=== PATIENT | male | born 1940 | race Caucasian/White ===

== ENCOUNTER 2016-05-21 09:33 | Emergency (ER) | payer OTHER ==
--- NOTE | 2016-05-21 09:51 | PDOC ---
History of Present Illness - General Chief Complaint: Cold Symptoms Stated Complaint: FLU SYMPTOMS Time Seen by Provider: 05/21/16 09:47 History Source: Patient Exam Limitations: No Limitations - History of Present Illness Initial Comments: 76 yo M past medical history of colon CA, in remission, presents with flu-like symptoms for past week. He states that he suspected he had the flu, but sought evaluation now because it hasn't yet resolved. He states that he has been having cough, congestion, and sensation of aching pains all over his body. He has been taking ibuprofen 200 mg occasionally, but he generally prefers not to take medication. Denies shortness of breath. Past History - Past Medical History Allergies/Adverse Reactions: Allergies Allergy/AdvReac Type Severity Reaction Status Date / Time No Known Drug Allergies Allergy Verified 05/21/16 09:49 Home Medications: Ambulatory Orders Acetaminophen [Tylenol] 325 mg PO PRN PRN 05/21/16 Ibuprofen [Advil -] 200 mg PO PRN PRN 05/21/16 Anemia: No Asthma: No Cancer: Yes (COLON CA) Cardiac Disorders: No CVA: No COPD: No CHF: No Dementia: No Diabetes: No GI Disorders: No Disorders: Yes (KIDNEY STONES W/ LITHOTRIPSY) HTN: No Hypercholesterolemia: No Liver Disease: No Seizures: No Thyroid Disease: No - Surgical History Abdominal Surgery: Yes (COLON RESECTION) Appendectomy: Yes Cardiac Surgery: No Cholecystectomy: No Lung Surgery: No Neurologic Surgery: No Orthopedic Surgery: No - Psycho/Social/Smoking Cessation Hx Anxiety: No Suicidal Ideation: No Smoking Status: No Smoking History: Unknown if ever smoked Have you smoked in the past 12 months: No Number of Cigarettes Smoked Daily: 0 Hx Alcohol Use: No Drug/Substance Use Hx: No Substance Use Type: None Hx Substance Use Treatment: No Review of Systems - Review of Systems Able to Perform ROS?: Yes Comments:: GENERAL/CONSTITUTIONAL: No fever or chills. No weakness. HEAD, EYES, EARS, NOSE AND THROAT: No change in vision. No ear pain or discharge. No sore throat. +Nasal congestion. CARDIOVASCULAR: No chest pain or shortness of breath. RESPIRATORY: +Cough. No wheezing or hemoptysis. GASTROINTESTINAL: No nausea, vomiting, diarrhea or constipation. GENITOURINARY: No dysuria, frequency, or change in urination. MUSCULOSKELETAL: No joint or muscle swelling or pain. No neck or back pain. SKIN: No rash NEUROLOGIC: No headache, vertigo, loss of consciousness, or change in strength/ sensation. ENDOCRINE: No increased thirst. No abnormal weight change. HEMATOLOGIC/LYMPHATIC: No anemia, easy bleeding, or history of blood clots. ALLERGIC/IMMUNOLOGIC: No hives or skin allergy. *Physical Exam - Physical Exam Comments: GENERAL: Awake, alert, and fully oriented, in no acute distress HEAD: No signs of trauma EYES: PERRLA, EOMI, sclera anicteric, conjunctiva clear ENT: Auricles normal inspection, hearing grossly normal, nares with some crusting, oropharynx clear without exudates. Moist mucosa NECK: Normal ROM, supple, no lymphadenopathy, JVD, or masses LUNGS: Breath sounds equal, clear to auscultation bilaterally. No wheezes, and no crackles HEART: Regular rate and rhythm, normal S1 and S2, no murmurs, rubs or gallops ABDOMEN: Soft, nontender, normoactive bowel sounds. No guarding, no rebound. No masses EXTREMITIES: Normal range of motion, no edema. No clubbing or cyanosis. No cords, erythema, or tenderness NEUROLOGICAL: Cranial nerves II through XII grossly intact. Normal speech, normal gait SKIN: Warm, Dry, normal turgor, no rashes. +Cracked skin to L hand and L foot. Medical Decision Making - Medical Decision Making XR and flu swab results d/w patient. No indication for antibiotics at this time. Eucerin or vaseline nightly for cracked skin- I counseled patient that the cracks can get infected if he does not take care of them. *DC/Admit/Observation/Transfer Diagnosis at time of Disposition: Viral syndrome - Discharge Dispostion Disposition: HOME Condition at time of disposition: Stable Admit: No - Patient Instructions Printed Discharge Instructions: DI for Viral Upper Respiratory Infection -- Adult
[2016-05-21 09:58] VITALS: BP 131/82; PULSE 70; TEMP 98.7; BMI 33.2
== END 2016-05-21 11:50 | disposition home or self-care (01) ==
LOC: FER 09:33
DX: B34.9 Viral infection, unspecified (principal); Z85.038 Personal history of other malignant neoplasm of large intestine; Z87.442 Personal history of urinary calculi
CPT/HCPCS: 71020-TC; 87804; 99283-25

== ENCOUNTER 2016-07-13 11:09 | Emergency (ER) | payer OTHER ==
[2016-07-13 11:16] VITALS: TEMP 97.6; BMI 40.6
[2016-07-13 11:30] LABS: BASOPHIL 1.1 % (0-2.0); EOSINOPHIL 2.1 % (0-4.5); MCH 31.9 pg (25.7-33.7); MCHC 33.3 g/dl (32.0-35.9); MEAN CELL VOLUME 95.8 fl (80-96); MEAN PLT VOLUME 8.1 fl (7.5-11.1); NEUTROPHILS 66.2 % (42.8-82.8); PLATELET COUNT 208 K/MM3 (134-434); RDW 13.5 % (11.9-15.9); WHITE BLOOD COUNT 6.9 K/mm3 (4.0-10.8)
[2016-07-13] MEDS ORDERED: MECLIZINE HCL 25 MG TABLET (FP) PO ONE (11:46)
[2016-07-13] MEDS ORDERED: MECLIZINE HCL 25 MG TABLET (FP) ONE (11:48)
[2016-07-13 11:55] LABS: CPK(DFH) 55 IU/L (38-174)
[2016-07-13 11:56] LABS: ALBUMIN 3.5 g/dl (3.5-5.0); ALK PHOS 55 U/L (32-92); ANION GAP 6 (8-16); BILIRUBIN,TOTAL 0.9 mg/dl (0.2-1.0); CALCIUM 8.8 mg/dl (8.4-10.2); CO2 28 mmol/L (22-28); CREATININE 0.9 mg/dl (0.6-1.3); GLUCOSE,RANDOM 120 mg/dl (74-106); SGOT/AST 20 U/L (10-42); SGPT/ALT 14 U/L (10-40)
[2016-07-13 11:57] LABS: COCKROFT - GAULT NT
[2016-07-13 12:23] LABS: TROPONIN I (DFP) < 0.03 ng/ml (0.03-0.50)
--- NOTE | 2016-07-13 12:23 | PDOC ---
History of Present Illness - General Chief Complaint: Lightheaded Stated Complaint: DIZZINESS Time Seen by Provider: 07/13/16 11:10 History Source: Patient, Spouse Exam Limitations: No Limitations - History of Present Illness Initial Comments: 07/13/16 12:17 CHIEF COMPLAINT: Vertigo since this morning HISTORY OF PRESENT ILLNESS: This is a 76-year-old man with no significant past medical history other than prior resection of a colon cancer a few years ago. He states in the past he has had occasional episodes of vertigo which have been treated successfully with meclizine. His last episode was a few years ago. He was feeling well this morning until he got up from his bed and upon standing he felt similar symptoms to his prior vertigo. He said he felt his head spinning a little bit and slightly off balance. Shortly thereafter he vomited 2. Currently he continues to have mild vertigo, only upon standing, which is consistent with his prior episodes of vertigo. When he lies still on the bed, he feels much better. When he moves or gets up, he starts to feel the vertigo. There is no chest pain. There is no nausea or vomiting. There is no shortness of breath. There is no focal numbness or weakness. There is no change in speech or swallowing. There is no change in vision. REVIEW OF SYSTEMS: GENERAL/CONSTITUTIONAL: No fever or chills. No weakness. No weight change. HEAD, EYES, EARS, NOSE AND THROAT: No change in vision. No ear pain or discharge. No sore throat. CARDIOVASCULAR: No chest pain or shortness of breath. RESPIRATORY: No cough, wheezing, or hemoptysis. GASTROINTESTINAL: No nausea, vomiting, diarrhea or constipation. No rectal bleeding. GENITOURINARY: No dysuria, frequency, or change in urination. MUSCULOSKELETAL: No joint or muscle swelling or pain. No neck or back pain. SKIN AND BREASTS: No rash or easy bruising. NEUROLOGIC: Slight frontal headache, + positive vertigo, no loss of consciousness, no loss of sensation. PSYCHIATRIC: No depression or anxiety. ENDOCRINE: No increased thirst. No abnormal weight change. HEMATOLOGIC/LYMPHATIC: No anemia, easy bleeding, or history of blood clots. ALLERGIC/IMMUNOLOGIC: No hives or skin allergy. No latex allergy. Past History - Past Medical History Allergies/Adverse Reactions: Allergies Allergy/AdvReac Type Severity Reaction Status Date / Time No Known Drug Allergies Allergy Verified 07/13/16 11:10 Home Medications: Ambulatory Orders Meclizine HCl 25 mg PO Q6H PRN #20 tablet 07/13/16 Anemia: No Asthma: No Cancer: Yes (COLON CA, status post resection) Cardiac Disorders: No CVA: No COPD: No CHF: No Dementia: No Diabetes: No GI Disorders: No Disorders: Yes (KIDNEY STONES W/ LITHOTRIPSY) HTN: No Hypercholesterolemia: No Liver Disease: No Seizures: No Thyroid Disease: No Other medical history: VERTIGO - Surgical History Abdominal Surgery: Yes (COLON RESECTION) Appendectomy: Yes Cardiac Surgery: No Cholecystectomy: No Lung Surgery: No Neurologic Surgery: No Orthopedic Surgery: No - Immunization History Immunization Up to Date: Yes - Psycho/Social/Smoking Cessation Hx Anxiety: No Suicidal Ideation: No Smoking Status: No Smoking History: Never smoked Have you smoked in the past 12 months: No Number of Cigarettes Smoked Daily: 0 Hx Alcohol Use: No Drug/Substance Use Hx: No Substance Use Type: None Hx Substance Use Treatment: No *Physical Exam - Vital Signs Last Vital Signs Temp Pulse Resp BP Pulse Ox 97.6 F 62 18 134/77 96 07/13/16 11:10 07/13/16 11:50 07/13/16 11:50 07/13/16 11:50 07/13/16 11:50 - Physical Exam Comments: 07/13/16 12:21 GENERAL: The patient is awake, alert, and fully oriented, in no acute distress. HEAD: Normal with no signs of trauma. EYES: Pupils equal, round and reactive to light, extraocular movements intact, sclera anicteric, conjunctiva clear. ENT: Ears normal, nares patent, oropharynx clear without exudates. Moist mucous membranes. NECK: Normal range of motion, supple without lymphadenopathy, JVD, or masses. LUNGS: Breath sounds equal, clear to auscultation bilaterally. No wheezes, and no crackles. HEART: Regular rate and rhythm, normal S1 and S2 without murmur, rub or gallop. ABDOMEN: Soft, nontender, normoactive bowel sounds. No guarding, no rebound. No masses. EXTREMITIES: Normal range of motion, no edema. No clubbing or cyanosis. No cords, erythema, or tenderness. NEURO: Mental status: The patient is oriented x3. Cranial nerves: Cranial nerves are intact. There is no nystagmus. There is no facial asymmetry. Motor: The upper extremities are 5 over 5 in all muscle groups. The lower extremities are 5 over 5 in all muscle groups. Sensation: Sensation is intact to light touch throughout. Cerebellar: Epdtzu-[id number] is normal in both upper extremities. Heel-knee- neal is normal in both lower extremities. Reflexes: 2+ and symmetric in the upper and lower extremities. Gait: Normal. Heel and toe walking are normal. Tandem gait is normal for age. PSYCH: Normal mood, normal affect. SKIN: Warm, Dry, normal turgor, no rashes or lesions noted. ED Treatment Course - LABORATORY CBC & Chemistry Diagram: 07/13/16 11:15 07/13/16 11:15 - ADDITIONAL ORDERS Additional order review: Laboratory Results 07/13/16 07/13/16 11:15 11:15 Sodium 137 Potassium 4.8 Chloride 103 Carbon Dioxide 28 Anion Gap 6 L BUN 15 D Creatinine 0.9 Creat Clearance w eGFR > 60 Random Glucose 120 H D Calcium 8.8 Total Bilirubin 0.9 AST 20 ALT 14 Alkaline Phosphatase 55 Creatine Kinase 55 Total Protein 6.0 L Albumin 3.5 07/13/16 11:15 RBC 4.54 MCV 95.8 MCHC 33.3 RDW 13.5 MPV 8.1 Neutrophils % 66.2 D Lymphocytes % 22.7 D Monocytes % 7.9 Eosinophils % 2.1 Basophils % 1.1 - Medications Given in the ED: ED Medications Discontinued Medications Generic Name Dose Route Start Last Admin Trade Name Freq PRN Reason Stop Dose Admin Meclizine HCl 25 mg 07/13/16 11:46 07/13/16 11:50 Antivert - PO 07/13/16 11:47 25 mg ONCE ONE Administration Medical Decision Making - Medical Decision Making 07/13/16 12:22 Patient has a history of recurrent episodes of vertigo, which she states are exactly similar to his current episode. He currently is here with onset today of vertigo with vomiting. The symptoms are getting better. He has no other neurological complaints. His neurological examination is completely normal. He does have slight vertigo upon moving or standing here in the ED. His physical examination including a detailed neurological examination is normal. Twelve-lead EKG shows sinus bradycardia with left axis and poor R waves inferiorly. There is no change from prior EKG in 2016. Impression: No evidence for acute cardiac or central nervous system disease. Symptoms are more likely peripheral vertigo, which the patient has suffered many times in the past. Given one dose of meclizine, however, his symptoms are improving prior to the medication. 07/13/16 13:05 Laboratory Tests 07/13/16 07/13/16 07/13/16 11:15 11:15 11:15 WBC 6.9 RBC 4.54 Hgb 14.5 Hct 43.5 MCV 95.8 MCHC 33.3 RDW 13.5 Plt Count 208 MPV 8.1 Neutrophils % 66.2 D Lymphocytes % 22.7 D Monocytes % 7.9 Eosinophils % 2.1 Basophils % 1.1 Sodium 137 Potassium 4.8 Chloride 103 Carbon Dioxide 28 Anion Gap 6 L BUN 15 D Creatinine 0.9 Creat Clearance w eGFR > 60 Random Glucose 120 H D Calcium 8.8 Total Bilirubin 0.9 AST 20 ALT 14 Alkaline Phosphatase 55 Creatine Kinase 55 Troponin I < 0.03 L Total Protein 6.0 L Albumin 3.5 Laboratory studies reviewed. The CBC is completely normal. The chemistries are all normal. The mild glucose elevation is consistent with a nonfasting state. The cardiac enzymes are negative. The patient's symptoms are consistent with benign, peripheral, positional vertigo. There are no symptoms of stroke or cardiac disease. The patient is feeling much better. He is stable for discharge. *DC/Admit/Observation/Transfer Diagnosis at time of Disposition: Peripheral vertigo Qualifiers: Laterality: unspecified laterality Qualified Code(s): H81.399 - Other peripheral vertigo, unspecified ear - Discharge Dispostion Disposition: HOME Condition at time of disposition: Improved Admit: No - Prescriptions Prescriptions: Meclizine HCl 25 mg PO Q6H PRN #20 tablet PRN Reason: Vertigo - Referrals Referrals: Eric Morales MD [Primary Care Provider] - - Patient Instructions Printed Discharge Instructions: DI for Benign Paroxysmal Positional Vertigo Additional Instructions: You were evaluated today for positional vertigo. Your examination and your EKG and blood tests were all normal. Take it easy at home for the rest of the day. Take meclizine as needed for vertigo. The recommended doses one tablet every 6 hours if needed. Eat lightly. Follow-up with Dr. Morales if the symptoms have not resolved. Return to the emergency department for any severe or progressive symptoms.
[2016-07-13] MEDS ORDERED: ACETAMINOPHEN 325 MG TABLET (FP) PO ONE (13:12)
[2016-07-13] MEDS ORDERED: ACETAMINOPHEN 325 MG TABLET (FP) ONE (13:12)
[2016-07-13 13:32] VITALS: BP 132/58; PULSE 60
--- NOTE | 2016-07-13 16:08 | EKG ---
Test Reason : Blood Pressure : / mmHG Vent. Rate : 058 BPM Atrial Rate : 058 BPM P-R Int : 152 ms QRS Dur : 080 ms QT Int : 424 ms P-R-T Axes : 032 -47 -06 degrees QTc Int : 416 ms SINUS BRADYCARDIA LEFT AXIS DEVIATION CANNOT RULE OUT INFERIOR INFARCT , AGE UNDETERMINED NONSPECIFIC T WAVE ABNORMALITY ABNORMAL ECG NO PREVIOUS ECGS AVAILABLE Confirmed by GARTH MEDELLIN MD ([id number]) on 07/13/2016 4:07:31 PM Referred By: BAYLEE SANTOYO Confirmed By:GARTH MEDELLIN MD
== END 2016-07-13 13:15 | disposition home or self-care (01) ==
LOC: FER 11:09 → SUPCPDRO 11:09 → FER 13:15
DX: H81.399 Other peripheral vertigo, unspecified ear (principal); Z85.038 Personal history of other malignant neoplasm of large intestine; Z87.442 Personal history of urinary calculi
CPT/HCPCS: 36415; 80053; 82550; 84484; 85025; 93005; 99285-25

== ENCOUNTER 2017-02-14 03:24 | Emergency (ER) | payer OTHER ==
[2017-02-14 03:34] VITALS: BMI 33.2
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
[2017-02-14] MEDS ORDERED: ASPIRIN 81 MG CHEWABLE TABLETS PO ONE (03:42)
[2017-02-14] MEDS ORDERED: ASPIRIN 81 MG CHEWABLE TABLETS ONE (03:49)
[2017-02-14 04:42] LABS: BASOPHIL 0.9 % (0-2.0); EOSINOPHIL 2.7 % (0-4.5); MCH 31.7 pg (25.7-33.7); MCHC 32.8 g/dl (32.0-35.9); MEAN CELL VOLUME 96.8 fl (80-96); MEAN PLT VOLUME 7.8 fl (7.5-11.1); NEUTROPHILS 51.2 % (42.8-82.8); PLATELET COUNT 217 K/MM3 (134-434); RDW 13.8 % (11.9-15.9)
[2017-02-14 05:09] LABS: ALBUMIN 3.4 g/dl (3.4-5.0); ANION GAP 9 (8-16); BILIRUBIN,TOTAL 0.5 mg/dL (0.2-1.0); CALCIUM 8.4 mg/dL (8.5-10.1); CO2 26 mmol/L (21-32); CREATININE 0.9 mg/dL (0.7-1.3); GLUCOSE,RANDOM 94 mg/dL (74-106); SGOT/AST 14 U/L (15-37); SGPT/ALT 17 U/L (12-78); TOT PROT 6.1 g/dl (6.4-8.2)
[2017-02-14 05:12] LABS: ALK PHOS 76 U/L (45-117); CPK 107 IU/L (39-308); TROPONIN I 0.05 ng/ml (0.00-0.05)
--- NOTE | 2017-02-14 07:34 | PDOC ---
*Physical Exam - Vital Signs Last Vital Signs Temp Pulse Resp BP Pulse Ox 97.6 F 62 18 135/74 98 02/14/17 03:32 02/14/17 03:32 02/14/17 03:32 02/14/17 03:32 02/14/17 03:32 ED Treatment Course - LABORATORY CBC & Chemistry Diagram: 02/14/17 03:48 02/14/17 03:48 - ADDITIONAL ORDERS Additional order review: Laboratory Results 02/14/17 03:48 Sodium 141 Potassium 4.1 Chloride 106 Carbon Dioxide 26 Anion Gap 9 BUN 13 D Creatinine 0.9 Creat Clearance w eGFR > 60 Random Glucose 94 Calcium 8.4 L Total Bilirubin 0.5 AST 14 L ALT 17 Alkaline Phosphatase 76 Creatine Kinase 107 Troponin I 0.05 Total Protein 6.1 L Albumin 3.4 02/14/17 03:48 RBC 4.46 D MCV 96.8 H MCHC 32.8 RDW 13.8 MPV 7.8 Neutrophils % 51.2 Lymphocytes % 34.1 Monocytes % 11.1 H Eosinophils % 2.7 Basophils % 0.9 - Medications Given in the ED: ED Medications Discontinued Medications Generic Name Dose Route Start Last Admin Trade Name Freq PRN Reason Stop Dose Admin Aspirin 325 mg 02/14/17 03:42 02/14/17 03:50 Asa - PO 02/14/17 03:43 325 mg ONCE ONE Administration Medical Decision Making - Medical Decision Making 02/14/17 10:57 Pt endorsed to me by Dr. Laird at shift change. Low suspicion for ACS, low risk. Awaiting repeat CE. If wnl, will DC home. *DC/Admit/Observation/Transfer Diagnosis at time of Disposition: Atypical chest pain - Discharge Dispostion Disposition: HOME Condition at time of disposition: Stable Admit: No - Referrals Referrals: Eric Morales MD [Primary Care Provider] - - Patient Instructions Printed Discharge Instructions: DI for Atypical Chest Pain - Post Discharge Activity
[2017-02-14 09:01] VITALS: TEMP 98.6
[2017-02-14 10:32] LABS: CPK 74 IU/L (39-308)
[2017-02-14 11:23] LABS: TROPONIN I (DFP) < 0.03 ng/ml (0.03-0.50)
[2017-02-14 11:31] VITALS: BP 117/71; PULSE 59
--- NOTE | 2017-02-15 17:50 | EKG ---
Test Reason : Blood Pressure : / mmHG Vent. Rate : 058 BPM Atrial Rate : 058 BPM P-R Int : 148 ms QRS Dur : 090 ms QT Int : 436 ms P-R-T Axes : 014 -46 -12 degrees QTc Int : 428 ms SINUS BRADYCARDIA LEFT ANTERIOR FASCICULAR BLOCK NONSPECIFIC T WAVE ABNORMALITY ABNORMAL ECG WHEN COMPARED WITH ECG OF 13-JUL-2016 11:16, NO SIGNIFICANT CHANGE WAS FOUND Confirmed by GARTH MEDELLIN MD ([id number]) on 02/15/2017 5:50:12 PM Referred By: MD GARG Confirmed By:GARTH MEDELLIN MD
--- NOTE | 2017-02-16 08:11 | EKG ---
Test Reason : Blood Pressure : / mmHG Vent. Rate : 068 BPM Atrial Rate : 068 BPM P-R Int : 166 ms QRS Dur : 088 ms QT Int : 426 ms P-R-T Axes : 016 -47 -05 degrees QTc Int : 452 ms SINUS RHYTHM WITH PREMATURE ATRIAL COMPLEXES LEFT ANTERIOR FASCICULAR BLOCK CANNOT RULE OUT INFERIOR INFARCT ABNORMAL ECG WHEN COMPARED WITH ECG OF 14-FEB-2017 03:37, PREMATURE ATRIAL COMPLEXES ARE NOW PRESENT Loss of R waves in II and aVF Confirmed by GARTH MEDELLIN MD ([id number]) on 02/16/2017 8:11:17 AM Referred By: AVIVA LEON Confirmed By:GARTH MEDELLIN MD
== END 2017-02-14 11:43 | disposition home or self-care (01) ==
LOC: FER 03:24
DX: S29.011A Strain of muscle and tendon of front wall of thorax, initial encounter (principal); R07.89 Other chest pain; X58.XXXA Exposure to other specified factors, initial encounter; Y93.9 Activity, unspecified; Y92.9 Unspecified place or not applicable; Z85.038 Personal history of other malignant neoplasm of large intestine; Z90.49 Acquired absence of other specified parts of digestive tract; Z87.442 Personal history of urinary calculi
CPT/HCPCS: 36415; 71010-TC; 80053; 82550; 84484; 85025; 93005; 93010; 99284-25

== ENCOUNTER 2018-01-01 14:34 | Emergency (ER) | payer OTHER ==
--- NOTE | 2018-01-01 14:37 | PDOC ---
History of Present Illness - General Chief Complaint: Respiratory Stated Complaint: cough,sore throat,chest pain,head ache and body ac Time Seen by Provider: 01/01/18 14:37 History Source: Patient Exam Limitations: No Limitations - History of Present Illness Initial Comments: 01/01/18 14:38 Mr Monterroso presents to the ER with a complaint of "I think I have the flu" He is a 77-year-old man with a h/o overactive bladder (on Myrbetriq), ER visit for vertigo. He presents with a complaint of chest pain which began 2 hours ago. This is associated with bodyaches, fevers, chills, headaches, sore throat, cough, and nausea. Chest pain is intermittent, sharp, pinching in nature, non-radiating, 2/ 10 in intensity which occurs in conjunction with his cough. Denies any associated arm or jaw pain. Pt states resolution of the chest pain since then. Pt states he woke up with a dry cough in the morning and a raspy voice. Denies taking any medications this AM for it. Reports not having his flu shot this season. Denies SOB, vomiting, changes in bowel movement, abdominal pain, back pain or dysuria. PMH: Colon CA, Overactive bladder, Vertigo PSH: Colon resection Meds: Myrbetriq ALL: NKDA Social: denies drug use FH: non contributory REVIEW OF SYSTEMS: GENERAL/CONSTITUTIONAL: No fever or chills. No weakness. No weight change. HEAD, EYES, EARS, NOSE AND THROAT: No change in vision. No ear pain or discharge. No sore throat. CARDIOVASCULAR: No chest pain or shortness of breath. RESPIRATORY: No cough, wheezing, or hemoptysis. GASTROINTESTINAL: No nausea, vomiting, diarrhea or constipation. No rectal bleeding. GENITOURINARY: No dysuria, frequency, or change in urination. MUSCULOSKELETAL: No joint or muscle swelling or pain. No neck or back pain. SKIN AND BREASTS: No rash or easy bruising. NEUROLOGIC: Slight frontal headache, + positive vertigo, no loss of consciousness, no loss of sensation. PSYCHIATRIC: No depression or anxiety. ENDOCRINE: No increased thirst. No abnormal weight change. HEMATOLOGIC/LYMPHATIC: No anemia, easy bleeding, or history of blood clots. ALLERGIC/IMMUNOLOGIC: No hives or skin allergy. No latex allergy. 01/01/18 14:41 GENERAL: The patient is in no acute distress. HEAD: Normal with no signs of trauma. EYES: PERRLA, EOMI, sclera anicteric, conjunctiva clear. ENT: Ears normal, nares patent, oropharynx clear without exudates. Moist mucous membranes. NECK: Normal range of motion, supple without lymphadenopathy, JVD, or masses. LUNGS: Breath sounds equal, clear to auscultation bilaterally. No wheezes, and no crackles. HEART:Regular rate and rhythm, normal S1 and S2 without murmur, rub or gallop. ABDOMEN: Soft, nontender, normoactive bowel sounds. No guarding, no rebound. No masses palpable. EXTREMITIES: Normal range of motion, no edema. No clubbing or cyanosis. No erythema, or tenderness. NEUROLOGICAL: Cranial nerves II through XII grossly intact. Normal speech. No focal neurological deficits. MUSCULOSKELETAL: Back non-tender to palpation, no CVA tenderness SKIN: Warm, Dry, normal turgor, no rashes or lesions noted. 01/01/18 14:53 01/01/18 14:56 Past History - Past Medical History Allergies/Adverse Reactions: Allergies Allergy/AdvReac Type Severity Reaction Status Date / Time No Known Drug Allergies Allergy Verified 01/01/18 14:36 Home Medications: Ambulatory Orders Mirabegron [Myrbetriq] 0 mg PO ASDIR 01/01/18 Anemia: No Asthma: No Cancer: Yes (COLON CA, status post resection) Cardiac Disorders: No CVA: No COPD: No CHF: No Dementia: No Diabetes: No GI Disorders: No Disorders: Yes (KIDNEY STONES W/ LITHOTRIPSY) HTN: No Hypercholesterolemia: No Liver Disease: No Seizures: No Thyroid Disease: No - Surgical History Abdominal Surgery: Yes (COLON RESECTION) Appendectomy: Yes Cardiac Surgery: No Cholecystectomy: No Lung Surgery: No Neurologic Surgery: No Orthopedic Surgery: No - Immunization History Immunization Up to Date: Yes - Suicide/Smoking/Psychosocial Hx Smoking Status: No Smoking History: Never smoked Have you smoked in the past 12 months: No Number of Cigarettes Smoked Daily: 0 Hx Alcohol Use: No Drug/Substance Use Hx: No Substance Use Type: None Hx Substance Use Treatment: No ED Treatment Course - LABORATORY CBC & Chemistry Diagram: 01/01/18 15:15 01/01/18 15:15 Medical Decision Making - Medical Decision Making 01/01/18 16:34 77 yo M presenting with illness: Viral syndrome, Pneumonia, UTI, Influenza No signs of cellulitis No murmurs appreciated at this time Will do: Labs, EKG, CXR Influenza, Strep IVF, Tylenol EKG : SR rate of 82 bpm, Left axis deviation, no st elevation or depression, t waves upright Laboratory Tests 01/01/18 01/01/18 01/01/18 15:15 15:15 15:15 WBC 8.7 Hgb 14.9 Hct 44.3 Plt Count 191 Neutrophils % 86.3 H D Lymphocytes % 5.7 L D Sodium 134 L Potassium 4.4 Chloride 103 BUN 14 Creatinine 1.0 Creatine Kinase Troponin I < 0.03 01/01/18 15:15 WBC Hgb Hct Plt Count Neutrophils % Lymphocytes % Sodium Potassium Chloride BUN Creatinine Creatine Kinase 59 Troponin I CXR: read as nml by radiologist 01/01/18 16:36 Pt re assessed Probable viral syndrome Will discharge to home Discharge instructions reviewed Pt asked to follow up with PMD in 3 days If NOT improved, pt asked to return to the ER for re evaluation 01/01/18 16:43 *DC/Admit/Observation/Transfer Diagnosis at time of Disposition: Viral syndrome Fever Qualifiers: Fever type: unspecified Qualified Code(s): R50.9 - Fever, unspecified - Discharge Dispostion Disposition: HOME Condition at time of disposition: Stable Decision to Admit order: No - Referrals Referrals: Eric Morales MD [Primary Care Provider] - - Patient Instructions Printed Discharge Instructions: DI for Viral Syndrome Additional Instructions: Mr Monterroso Thank you for coming in to the ER today You had a fever We evaluated your labs Your urine was normal Your chest x ray was normal We have sent blood cultures and urine cultures which will take 2-3 days to be resulted If they are positive, we will call you Please stay hydrated Please take motrin 600mg or Tylenol 1000mg in alternation for fevers Please monitor yourself for fevers If you have persistently high fevers, feel weak, are unable to eat or drink, please feel free to return to the ER for re evaluation Please also, follow up with your primary care physician in 3 days - Post Discharge Activity
[2018-01-01 14:40] VITALS: BMI 33.2
[2018-01-01] MEDS ORDERED: ACETAMINOPHEN 1000 MG/100 ML VIAL (NON FORMULARY) IVPB ONE (14:42)
[2018-01-01] MEDS ORDERED: SODIUM CHLORIDE 1,000 ML IV STA (14:42)
[2018-01-01 15:33] LABS: BASO % 0.5 % (0-2.0); HEMATOCRIT 44.3 % (35.4-49); HEMOGLOBIN 14.9 GM/dl (11.7-16.9); LYMPH % 5.7 % (8-40); MCH 32.8 pg (25.7-33.7); MCHC 33.6 g/dl (32.0-35.9); MEAN CELL VOLUME 97.6 fl (80-96); MONO % 6.5 % (3.8-10.2); NEUT % 86.3 % (42.8-82.8); PLATELET COUNT 191 K/MM3 (134-434); RBC 4.54 M/mm3 (4.00-5.60); RDW 13.5 % (11.9-15.9); WHITE BLOOD COUNT 8.7 K/mm3 (4.0-10.8)
[2018-01-01 15:46] LABS: INR 1.1 (0.82-1.09); PROTHROMBIN TIME (PATIENT) 12.3 SEC (10.2-13.0)
[2018-01-01] MEDS ORDERED: ACETAMINOPHEN INJECTION 100 ML IVPB ONE (15:46)
[2018-01-01 15:51] LABS: ALBUMIN 3.8 g/dl (3.5-5.0); ALK PHOS 56 U/L (32-92); ANION GAP 4 MMOL/L (8-16); BILIRUBIN,TOTAL 0.7 mg/dl (0.2-1.0); BLOOD UREA NITROGEN 14 mg/dl (7-18); CALCIUM 8.6 mg/dl (8.4-10.2); CHLORIDE 103 mmol/L (98-107); CO2 27 mmol/L (22-28); GLUCOSE,RANDOM 90 mg/dl (74-106); POTASSIUM 4.4 mmol/L (3.5-5.1); SGOT/AST 19 U/L (10-42); SGPT/ALT 14 U/L (10-40); SODIUM 134 mmol/L (136-145); TOT PROT 6.3 g/dl (6.4-8.3)
[2018-01-01 16:02] LABS: ACTIVATED PTT 27.1 SECONDS (25.2-36.5)
[2018-01-01 16:42] VITALS: TEMP 99.1
[2018-01-01 16:51] LABS: URINE APPEARANCE Clear; URINE BILIRUBIN Negative (NEGATIVE); URINE COLOR Yellow; URINE GLUCOSE (UA) Negative (NEGATIVE); URINE KETONE Negative (NEGATIVE); URINE LEUK ESTERASE Negative (NEGATIVE); URINE NITRITE Negative (NEGATIVE); URINE PROTEIN Negative (NEGATIVE); URINE UROBILINOGEN 0.2 (0.2-1.0)
[2018-01-01 17:25] VITALS: BP 111/61; PULSE 80
--- NOTE | 2018-01-02 17:34 | EKG ---
Test Reason : Blood Pressure : / mmHG Vent. Rate : 082 BPM Atrial Rate : 082 BPM P-R Int : 148 ms QRS Dur : 084 ms QT Int : 358 ms P-R-T Axes : 026 -57 -02 degrees QTc Int : 418 ms SINUS RHYTHM WITH PREMATURE ATRIAL COMPLEXES LEFT AXIS DEVIATION ABNORMAL ECG WHEN COMPARED WITH ECG OF 14-FEB-2017 08:46, NO SIGNIFICANT CHANGE WAS FOUND Confirmed by ALCON HASTINGS, JOSUE ([id number]) on 01/02/2018 5:34:41 PM Referred By: MD FLOYD Confirmed By:JOSUE RONDON MD
== END 2018-01-01 17:22 | disposition home or self-care (01) ==
LOC: FER 14:34 → SUPCPDRO 14:34 → FER 17:22
PROC: 3E033NZ Introduction of Analgesics, Hypnotics, Sedatives into Peripheral Vein, Percutaneous Approach (ICD-10-PCS; principal; 2018-01-01)
PROC: 3E0337Z Introduction of Electrolytic and Water Balance Substance into Peripheral Vein, Percutaneous Approach (ICD-10-PCS; 2018-01-01)
DX: B34.9 Viral infection, unspecified (principal); Z85.038 Personal history of other malignant neoplasm of large intestine; N32.81 Overactive bladder
CPT/HCPCS: 36415; 71045-TC-FY; 80053; 81003; 82550; 84484; 85025; 85610; 85730; 87040; 87070; 87086; 87430; 87804; 93005; 96361; 96374; 99282-25; J0131; J7030

== ENCOUNTER 2018-01-06 08:53 | Emergency (ER) | payer OTHER ==
[2018-01-06 09:17] VITALS: BMI 32.5
--- NOTE | 2018-01-06 09:57 | PDOC ---
History of Present Illness - History of Present Illness Initial Comments: 01/06/18 11:42 Patient is a 77 year old male with a significant past medical history of Colon CA, Overactive bladder, Vertigo, who presents to the ED with complaints cold like symptoms that began x1 week ago. Patient reports coming to the ED last week after experiencing symptoms of fever, chills and cold sweats. He reports he was evaluated, treated and discharged home. Patient reports experiencing x1 episode of vomiting, non productive coughing, and persistent chills, prompting him to come into the ED today for further evaluation. He reports initially believing to have flu or viral infection but states all tests conducted returned negative. Denies chest pain, Sob. Denies nausea. Denies out of state travelling. Denies dysuria, hematuria. Denies diarrhea, constipation. Denies any other symptoms. Allergies: None Social history: No smoking. No alcohol. No illicit drugs. Surgical history: Colon resection PMD: Dr. Morales <Dillon Lee - Last Filed: 01/06/18 11:42> - General History Source: Patient Exam Limitations: No Limitations <Amber Courtney - Last Filed: 01/07/18 13:03> - General Chief Complaint: Nausea/Vomiting Stated Complaint: NAUSEA/VOMITING Time Seen by Provider: 01/06/18 09:57 Past History <Dillon Lee - Last Filed: 01/06/18 11:42> - Past Medical History Anemia: No Asthma: No Cancer: Yes (COLON CA, status post resection) Cardiac Disorders: No CVA: No COPD: No CHF: No Dementia: No Diabetes: No GI Disorders: No Disorders: Yes (KIDNEY STONES W/ LITHOTRIPSY) HTN: No Hypercholesterolemia: No Liver Disease: No Seizures: No Thyroid Disease: No - Surgical History Abdominal Surgery: Yes (COLON RESECTION) Appendectomy: Yes Cardiac Surgery: No Cholecystectomy: No Lung Surgery: No Neurologic Surgery: No Orthopedic Surgery: No - Immunization History Immunization Up to Date: Yes - Suicide/Smoking/Psychosocial Hx Smoking Status: No Smoking History: Never smoked Have you smoked in the past 12 months: No Number of Cigarettes Smoked Daily: 0 Information on smoking cessation initiated: No Hx Alcohol Use: No Drug/Substance Use Hx: No Substance Use Type: None Hx Substance Use Treatment: No <Amber Courtney - Last Filed: 01/07/18 13:03> - Past Medical History Allergies/Adverse Reactions: Allergies Allergy/AdvReac Type Severity Reaction Status Date / Time No Known Drug Allergies Allergy Verified 01/06/18 09:17 Home Medications: Ambulatory Orders Mirabegron [Myrbetriq] 0 mg PO ASDIR 01/01/18 Review of Systems - Review of Systems Able to Perform ROS?: Yes Comments:: 01/06/18 11:42 GENERAL/CONSTITUTIONAL: +Fever. +chills. +Cold sweats. No: weakness, loss of appetite. HEAD, EYES, EARS, NOSE AND THROAT: No: change in vision, ear pain, discharge, sore throat, throat swelling. CARDIOVASCULAR: No: chest pain, lightheadedness, palpitations, syncope RESPIRATORY: +cough No: shortness of breath, wheezing, hemoptysis, stridor. GASTROINTESTINAL: No: nausea, vomiting, abdominal cramping, diarrhea, rectal bleeding, constipation. GENITOURINARY: No: dysuria, hematuria, frequency, urgency, flank pain. MUSCULOSKELETAL: No: back pain, neck pain, joint pain, muscle swelling or pain SKIN: No: lesions, pallor, rash or easy bruising. NEUROLOGIC: No: headache, vertigo, paresthesias, weakness ENDOCRINE: No: unexplained weight gain or loss HEMATOLOGIC/LYMPHATIC: No: anemia, easy bleeding, swelling nodes <Dillon Lee - Last Filed: 01/06/18 11:42> *Physical Exam - Vital Signs Last Vital Signs Temp Pulse Resp BP Pulse Ox 98.1 F 62 20 140/65 97 01/06/18 11:34 01/06/18 11:34 01/06/18 11:34 01/06/18 11:34 01/06/18 11:34 - Physical Exam Comments: 01/06/18 11:42 GENERAL: +Weak appearing. The patient is in no acute distress. HEAD: Normal with no signs of trauma. EYES: PERRLA, EOMI, sclera anicteric, conjunctiva clear. ENT: Ears normal, nares patent, oropharynx clear without exudates. Moist mucous membranes. NECK: Normal range of motion, supple without lymphadenopathy, JVD, or masses. LUNGS: Breath sounds equal, clear to auscultation bilaterally. No wheezes, and no crackles. HEART:Regular rate and rhythm, normal S1 and S2 without murmur, rub or gallop. ABDOMEN: Soft, nontender, normoactive bowel sounds. No guarding, no rebound. EXTREMITIES: +Good strength in all extremities. Normal range of motion, no edema. No clubbing or cyanosis. No erythema, or tenderness. NEUROLOGICAL: Cranial nerves II through XII grossly intact. Normal speech. No focal neurological deficits. MUSCULOSKELETAL: Back nontender to palpation, no CVA tenderness SKIN: Warm, Dry, normal turgor, no rashes or lesions noted. <Dillon Lee - Last Filed: 01/06/18 11:42> - Vital Signs Last Vital Signs Temp Pulse Resp BP Pulse Ox 98.5 F 60 16 145/63 97 01/06/18 09:15 01/06/18 09:15 01/06/18 09:15 01/06/18 09:15 01/06/18 09:15 <Amber Courtney - Last Filed: 01/07/18 13:03> ED Treatment Course - LABORATORY CBC & Chemistry Diagram: 01/06/18 10:35 01/06/18 10:35 - ADDITIONAL ORDERS Additional order review: Laboratory Results 01/06/18 01/06/18 10:35 10:35 Sodium 137 Potassium 4.2 Chloride 105 Carbon Dioxide 28 Anion Gap 4 L BUN 14 Creatinine 0.8 Creat Clearance w eGFR > 60 Random Glucose 88 Calcium 8.5 Total Bilirubin 0.6 AST 17 ALT 24 Alkaline Phosphatase 61 Creatine Kinase 58 Troponin I < 0.02 Total Protein 6.4 Albumin 3.2 L Urine Color Dkyellow Urine Appearance Clear Urine pH 5.0 Ur Specific [place] 1.023 Urine Protein Negative Urine Glucose (UA) Negative Urine Ketones Negative Urine Blood Negative Urine Nitrite Negative Urine Bilirubin Negative Urine Urobilinogen Negative Ur Leukocyte Esterase Negative 01/06/18 10:35 Influenza Types A,B Antigen - Final Nasopharyngeal Swab - Final 01/06/18 10:35 RBC 4.64 MCV 97.4 H MCHC 32.6 RDW 13.7 MPV 8.3 Neutrophils % 48.0 Lymphocytes % 31.2 Monocytes % 17.6 H Eosinophils % 2.7 Basophils % 0.5 - Medications Given in the ED: ED Medications Discontinued Medications Generic Name Dose Route Start Last Admin Trade Name Freq PRN Reason Stop Dose Admin Sodium Chloride 1,000 mls @ 1,000 mls/hr 01/06/18 10:05 01/06/18 10:30 Normal Saline - IV 01/06/18 11:04 1,000 mls/hr ASDIR STA Administration <Dillon Lee - Last Filed: 01/06/18 11:42> - LABORATORY CBC & Chemistry Diagram: 01/06/18 10:35 01/06/18 10:35 <Amber Courtney - Last Filed: 01/07/18 13:03> Medical Decision Making - Medical Decision Making 01/06/18 10:30 Mr alonso is a 77 yo M who presents to the ER again with a complaint of weakness He was seen in the ER 5 days ago with a fever Labs nml - including blood cultures which were negative, throat culture which was negative, Influenza which was negative Pt states that he has been taking tylenol and motrin He remains weak No chest pain No headache Today, he was light headed and vomited No abdominal pain 01/06/18 10:30 01/06/18 10:31 On examination: Pt is weak appearing, RRR CTA No abd tenderness No focal weakness or numbness Ambulatory with a steady, non ataxic gait WKG: NSR rate of 52 bpm, Left axis deviation, no st elevations or depressions, t waves upright 01/06/18 11:15 Laboratory Tests 01/06/18 01/06/18 01/06/18 10:35 10:35 10:35 WBC 4.2 Hgb 14.8 Hct 45.2 Plt Count 156 D Sodium 137 Potassium 4.2 Chloride 105 Carbon Dioxide 28 BUN 14 Creatinine 0.8 Random Glucose 88 Creatine Kinase 58 Troponin I < 0.02 Urine Ketones Negative Urine Blood Negative Ur Leukocyte Esterase Negative 01/06/18 11:34 influenza (+) Will discharge to home Follow up with PMD continue oral hydration, tylenol and motrin Clinical impression: Influenza A <Amber Courtney - Last Filed: 01/07/18 13:03> *DC/Admit/Observation/Transfer - Attestations Scribe Attestion: 01/06/18 11:42 Documentation prepared by Dillon Lee, acting as medical dir for Amber Courtney MD. <Dillon Lee - Last Filed: 01/06/18 11:42> - Discharge Dispostion Decision to Admit order: No <Amber Courtney - Last Filed: 01/07/18 13:03> Diagnosis at time of Disposition: Influenza A - Discharge Dispostion Disposition: HOME Condition at time of disposition: Stable - Referrals Referrals: Eric Morales MD [Primary Care Provider] - - Patient Instructions Printed Discharge Instructions: DI for Influenza -- Adult Additional Instructions: Please read the [facility] ED Care Sheets describing your diagnosis. PLEASE NOTE we suggest at a minimum that you review all symptoms and final test results with a physician that will provide ongoing care for you. THANK YOU for allowing us to help begin your care of this latest issue. Keep in mind the treatment performed in the Emergency Department is NOT complete until you have followed up with your Doctor. Rest as much as possible Stay hydrated We want you to return to the ED as soon as possible if symptoms get worse or if you have any problems whatsoever. We advised you to take the following medication(s) as directed: over the counter tylenol, motrin
[2018-01-06] MEDS ORDERED: SODIUM CHLORIDE 1,000 ML IV STA (10:05)
[2018-01-06 10:56] LABS: BASO % 0.5 % (0-2.0); EOS % 2.7 % (0-4.5); HEMATOCRIT 45.2 % (35.4-49); HEMOGLOBIN 14.8 GM/dL (11.7-16.9); LYMPH % 31.2 % (8-40); MCH 31.8 pg (25.7-33.7); MCHC 32.6 g/dl (32.0-35.9); MEAN CELL VOLUME 97.4 fl (80-96); MEAN PLT VOLUME 8.3 fl (7.5-11.1); MONO % 17.6 % (3.8-10.2); PLATELET COUNT 156 K/MM3 (134-434); RBC 4.64 M/mm3 (4.00-5.60); RDW 13.7 % (11.9-15.9); WHITE BLOOD COUNT 4.2 K/mm3 (4.0-10.0)
[2018-01-06 11:10] LABS: URINE APPEARANCE CLEAR; URINE BILIRUBIN NEGATIVE (<2.0 mg/dL); URINE COLOR DKYELLOW; URINE GLUCOSE (UA) NEGATIVE (NEGATIVE); URINE KETONE NEGATIVE (NEGATIVE); URINE LEUK ESTERASE NEGATIVE (NEGATIVE); URINE NITRITE NEGATIVE (NEGATIVE); URINE PROTEIN NEGATIVE (NEGATIVE); URINE UROBILINOGEN NEGATIVE mg/dL (0.2-1.0)
[2018-01-06 11:12] LABS: ALBUMIN 3.2 g/dl (3.4-5.0); ALK PHOS 61 U/L (45-117); ANION GAP 4 MMOL/L (8-16); BILIRUBIN,TOTAL 0.6 mg/dL (0.2-1); BLOOD UREA NITROGEN 14 mg/dL (7-18); CALCIUM 8.5 mg/dL (8.5-10.1); CHLORIDE 105 mmol/L (98-107); CO2 28 mmol/L (21-32); CREATININE 0.8 mg/dL (0.55-1.3); GLUCOSE,RANDOM 88 mg/dL (74-106); POTASSIUM 4.2 mmol/L (3.5-5.1); SGOT/AST 17 U/L (15-37); SGPT/ALT 24 U/L (13-61); SODIUM 137 mmol/L (136-145); TOT PROT 6.4 g/dl (6.4-8.2)
[2018-01-06 11:35] VITALS: BP 140/65; PULSE 62; TEMP 98.1
--- NOTE | 2018-01-06 14:51 | EKG ---
Test Reason : Blood Pressure : / mmHG Vent. Rate : 052 BPM Atrial Rate : 052 BPM P-R Int : 158 ms QRS Dur : 086 ms QT Int : 436 ms P-R-T Axes : 007 -51 -01 degrees QTc Int : 405 ms SINUS BRADYCARDIA LEFT ANTERIOR FASCICULAR BLOCK ABNORMAL ECG WHEN COMPARED WITH ECG OF 01-JAN-2018 16:10, PREMATURE ATRIAL COMPLEXES ARE NO LONGER PRESENT VENT. RATE HAS DECREASED BY 30 BPM Confirmed by SASHA JORGENSEN MD ([id number]) on 01/06/2018 2:50:57 PM Referred By: Confirmed By:SASHA JORGENSEN MD
== END 2018-01-06 11:37 | disposition home or self-care (01) ==
LOC: JER 08:53
PROC: 3E0337Z Introduction of Electrolytic and Water Balance Substance into Peripheral Vein, Percutaneous Approach (ICD-10-PCS; principal; 2018-01-06)
DX: J09.X2 Influenza due to identified novel influenza A virus with other respiratory manifestations (principal); Z85.038 Personal history of other malignant neoplasm of large intestine; R42 Dizziness and giddiness
CPT/HCPCS: 36415; 80053; 81003; 82550; 84484; 85025; 87086; 87804; 93005; 93010; 96360; 99284-25; J7030

== ENCOUNTER 2018-04-12 05:10 | Emergency (ER) | payer OTHER ==
[2018-04-12 05:14] VITALS: BP 125/53; PULSE 64; TEMP 97.5; BMI 32.5
--- NOTE | 2018-04-12 05:17 | PDOC ---
History of Present Illness - General Chief Complaint: Pain, Acute Stated Complaint: GROIN PAIN Time Seen by Provider: 04/12/18 05:17 History Source: Patient Exam Limitations: No Limitations - History of Present Illness Initial Comments: 04/12/18 06:13 This is a 78-year-old male who comes in complaining of pressure in his lower abdominal area. Patient also says that he has been unable to urinate more than a little bit. Patient denies any fevers, chills, nausea, vomiting, diarrhea. Patient denies any history of back or flank pain. Patient is otherwise healthy. Patient takes no medications. Patient does have a history of colon cancer had a resection and said he is cancer free. Patient does say he has an enlarged prostate. Patient denies any pain at the time I evaluated him. However he did say there was some mild discomfort in his lower abdominal area/groin. Allergies: None Past Medical History: none Social history: Lives with family. No smoking. No alcohol. No illicit drugs. Surgical history: None General: No fevers or chills, no weakness, no weight loss HEENT: No change in vision. No sore throat,. No ear pain CardioVascular: no chest discomfort. No shortness of breath Respiratory:No cough, or wheezing. Gastrointestinal: no nausea, vomiting, diarrhea or constipation, No rectal bleeding Genitourinary: No dysuria, hematuria, or frequency, reny/lower abdominal discomfort Musculoskeletal: No joint or muscle pain or swelling Neurologic: No headache, vertigo, dizziness or loss of consciousness Psychiatric: nor depression Skin: No rashes or easy bruising Endocrine: no increased thirst or abnormal weight change Allergic: no skin or latex allergy All other systems reviewed and normal Exam: General: Well-nourished well-developed individual, no acute distress HEENT: Throat: Normal, tonsils normal, no erythema or exudate Neck: Supple, no meningeal signs, no lymphadenopathy Eyes::Pupils equal reactive and round, extraocular motion intact Abdomen: Soft, nondistended, normal bowel sounds, there is no tenderness on palpation diffusely : Circumcised male, testicles descended bilaterally, normal cremaster reflex. There is no tenderness on palpation of the scrotal sac or testicles. There is no masses or palpable hernias bilaterally. There is no lymphadenopathy. There is no tenderness on palpation of the suprapubic area and bladder. There is no flank or CVA tenderness. Extremities: Warm, dry, no cyanosis, clubbing, or edema Skin: No rashes Neuro: Alert and oriented x3, CN II - XII intact, nonfocal exam with normal strength, normal sensation, normal reflexes, normal gait, Psych: Normal mood and affect Assessment and plan: This is a 78-year-old male who comes in complaining of abdominal discomfort and sensation that he can't urinate. However in the emergency room patient did urinate a small amount and post urination a straight catheter was placed with no additional urine obtained. We'll do basic workup including UA, urine culture, CBC and comp. 04/12/18 06:48 Care of this patient was transferred to Dr. Coleman at 7 AM. Patient's workup is still pending. Case discussed in detail with oncoming Emergency Physician including history, physical exam and ancillary studies. Oncoming Emergency Physician has assumed care for the patient and will complete the evaluation and treatment. Patient is aware of the plan. Pt is clinically unchanged and stable. 04/12/18 06:50 Past History - Past Medical History Allergies/Adverse Reactions: Allergies Allergy/AdvReac Type Severity Reaction Status Date / Time No Known Drug Allergies Allergy Verified 04/12/18 05:11 Home Medications: Ambulatory Orders NK [No Known Home Medication] 04/12/18 Anemia: No Asthma: No Cancer: Yes (COLON CA, status post resection) Cardiac Disorders: No CVA: No COPD: No CHF: No Dementia: No Diabetes: No GI Disorders: No Disorders: Yes (KIDNEY STONES W/ LITHOTRIPSY) HTN: No Hypercholesterolemia: No Liver Disease: No Seizures: No Thyroid Disease: No - Surgical History Abdominal Surgery: Yes (COLON RESECTION) Appendectomy: Yes Cardiac Surgery: No Cholecystectomy: No Lung Surgery: No Neurologic Surgery: No Orthopedic Surgery: No - Immunization History Immunization Up to Date: Yes - Suicide/Smoking/Psychosocial Hx Smoking Status: No Smoking History: Never smoked Have you smoked in the past 12 months: No Number of Cigarettes Smoked Daily: 0 Information on smoking cessation initiated: No Hx Alcohol Use: No Drug/Substance Use Hx: No Substance Use Type: None Hx Substance Use Treatment: No *Physical Exam - Vital Signs Last Vital Signs Temp Pulse Resp BP Pulse Ox 97.5 F L 64 16 125/53 L 97 04/12/18 05:12 04/12/18 05:12 04/12/18 05:12 04/12/18 05:12 04/12/18 05:12 Moderate Sedation - Procedure Monitoring Vital Signs: Procedure Monitoring Vital Signs Temperature 97.5 F L 04/12/18 05:12 Pulse Rate 64 04/12/18 05:12 Respiratory Rate 16 04/12/18 05:12 Blood Pressure 125/53 L 04/12/18 05:12 O2 Sat by Pulse Oximetry (%) 97 04/12/18 05:12 ED Treatment Course - LABORATORY CBC & Chemistry Diagram: 04/12/18 05:30 04/12/18 05:31 *DC/Admit/Observation/Transfer Diagnosis at time of Disposition: Groin discomfort Qualifiers: Laterality: unspecified laterality Qualified Code(s): R10.30 - Lower abdominal pain, unspecified - Discharge Dispostion Condition at time of disposition: Stable - Referrals Referrals: Eric Morales MD [Primary Care Provider] - - Patient Instructions - Post Discharge Activity
[2018-04-12 06:52] LABS: ALBUMIN 3.4 g/dl (3.4-5.0); ALK PHOS 76 U/L (45-117); ANION GAP 7 MMOL/L (8-16); BILIRUBIN,TOTAL 0.4 mg/dL (0.2-1); BLOOD UREA NITROGEN 19 mg/dL (7-18); CALCIUM 8.5 mg/dL (8.5-10.1); CHLORIDE 105 mmol/L (98-107); CO2 27 mmol/L (21-32); GLUCOSE,RANDOM 127 mg/dL (74-106); POTASSIUM 4.3 mmol/L (3.5-5.1); SGOT/AST 16 U/L (15-37); SGPT/ALT 17 U/L (13-61); SODIUM 139 mmol/L (136-145); TOT PROT 6.4 g/dl (6.4-8.2)
[2018-04-12] MEDS ORDERED: SODIUM CHLORIDE 1,000 ML IV ONE (07:01)
[2018-04-12] MEDS ORDERED: ACETAMINOPHEN 1000 MG/100 ML VIAL (NON FORMULARY) IVPB ONE (07:03)
[2018-04-12] MEDS ORDERED: ACETAMINOPHEN INJECTION 100 ML IVPB ONE (07:04)
[2018-04-12 07:13] LABS: URINE APPEARANCE SLCLOUDY; URINE BILIRUBIN NEGATIVE (<2.0 mg/dL); URINE COLOR YELLOW; URINE GLUCOSE (UA) NEGATIVE (NEGATIVE); URINE KETONE NEGATIVE (NEGATIVE); URINE LEUK ESTERASE NEGATIVE (NEGATIVE); URINE NITRITE NEGATIVE (NEGATIVE); URINE PROTEIN 1+ (NEGATIVE); URINE UROBILINOGEN NEGATIVE mg/dL (0.2-1.0)
--- NOTE | 2018-04-12 07:23 | PDOC ---
*Physical Exam - Vital Signs Last Vital Signs Temp Pulse Resp BP Pulse Ox 97.5 F L 64 16 125/53 L 97 04/12/18 05:12 04/12/18 05:12 04/12/18 05:12 04/12/18 05:12 04/12/18 05:12 Heart Score/ECG Review - ECG Impressions Comment:: EKG read 07:21- sinus arturo 52 bpm, no acute ST/T changes ED Treatment Course - LABORATORY CBC & Chemistry Diagram: 04/12/18 05:30 04/12/18 05:31 - ADDITIONAL ORDERS Additional order review: Laboratory Results 04/12/18 04/12/18 06:15 05:31 Sodium 139 Potassium 4.3 Chloride 105 Carbon Dioxide 27 Anion Gap 7 L BUN 19 H Creatinine 1.0 Creat Clearance w eGFR > 60 Random Glucose 127 H Calcium 8.5 Total Bilirubin 0.4 AST 16 ALT 17 Alkaline Phosphatase 76 Total Protein 6.4 Albumin 3.4 Urine Color Yellow Urine Appearance Slcloudy Urine pH 5.0 Ur Specific [place] 1.016 Urine Protein 1+ H Urine Glucose (UA) Negative Urine Ketones Negative Urine Blood 3+ H Urine Nitrite Negative Urine Bilirubin Negative Urine Urobilinogen Negative Ur Leukocyte Esterase Negative - Medications Given in the ED: ED Medications Discontinued Medications Generic Name Dose Route Start Last Admin Trade Name Freq PRN Reason Stop Dose Admin Acetaminophen 1,000 mg 04/12/18 07:03 04/12/18 07:09 Ofirmev Injection - IVPB 04/12/18 07:04 1,000 mg ONCE ONE Administration Medical Decision Making - Medical Decision Making 04/12/18 07:33 Pt endorsed to me by Dr. Laird at 7am shift change. He presented with intermittent abd pain, poorly localized. Initially described as pelvic, however , it resolved upon arrival in ED. Pain subsequently returned, now located in epigastric area. Not reproducible on exam. Poss kidney stone? Intermittent testicular torsion? CMP with no significant abnormalities, UA has just resulted with blood in the urine. Will obtain CT to r/o kidney stone. 04/12/18 09:04 CT positive for kidney stone, mild hydro. Stable for DC home. *DC/Admit/Observation/Transfer Diagnosis at time of Disposition: Kidney stone - Discharge Dispostion Disposition: HOME Condition at time of disposition: Stable Decision to Admit order: No - Referrals Referrals: Eric Morales MD [Primary Care Provider] - - Patient Instructions - Post Discharge Activity
[2018-04-12 08:01] LABS: LIPASE 170 U/L (73-393)
[2018-04-12 09:47] LABS: BASO % 0.6 % (0-2.0); EOS % 3.2 % (0-4.5); HEMATOCRIT 43.7 % (35.4-49); HEMOGLOBIN 15.2 GM/dL (11.7-16.9); MCH 33.9 pg (25.7-33.7); MCHC 34.8 g/dl (32.0-35.9); MEAN CELL VOLUME 97.5 fl (80-96); MEAN PLT VOLUME 8.5 fl (7.5-11.1); NEUT % 54.2 % (42.8-82.8); PLATELET COUNT 215 K/MM3 (134-434); RBC 4.48 M/mm3 (4.00-5.60); RDW 14.7 % (11.9-15.9); WHITE BLOOD COUNT 7.8 K/mm3 (4.0-10.0)
--- NOTE | 2018-04-12 12:57 | EKG ---
Test Reason : Blood Pressure : / mmHG Vent. Rate : 052 BPM Atrial Rate : 052 BPM P-R Int : 146 ms QRS Dur : 082 ms QT Int : 456 ms P-R-T Axes : 017 -43 -12 degrees QTc Int : 424 ms SINUS BRADYCARDIA LEFT AXIS DEVIATION INFERIOR INFARCT , AGE UNDETERMINED ABNORMAL ECG WHEN COMPARED WITH ECG OF 06-JAN-2018 10:27, NO SIGNIFICANT CHANGE WAS FOUND Confirmed by CODY HASTINGS, ULISES ([id number]) on 04/12/2018 12:57:24 PM Referred By: EDWARD Confirmed By:ULISES ROSS MD
== END 2018-04-12 09:17 | disposition home or self-care (01) ==
LOC: FER 05:10
PROC: 3E033NZ Introduction of Analgesics, Hypnotics, Sedatives into Peripheral Vein, Percutaneous Approach (ICD-10-PCS; principal; 2018-04-12)
PROC: 3E0337Z Introduction of Electrolytic and Water Balance Substance into Peripheral Vein, Percutaneous Approach (ICD-10-PCS; 2018-04-12)
DX: R10.30 Lower abdominal pain, unspecified (principal)
CPT/HCPCS: 36415; 74176; 80053; 81003; 81015; 82550; 83690; 84484; 85025; 87086; 93005; 96361; 96374; 99282-25; J0131; J7030

== ENCOUNTER 2018-04-19 09:16 | Day surgery (SDC) | payer OTHER ==
[2018-04-19 09:53] VITALS: BMI 33.1
[2018-04-19] MEDS ORDERED: MIDAZOLAM HCL 2 MG/2 ML SINGLE DOSE VIAL ONE (12:46)
[2018-04-19] MEDS ORDERED: LIDOCAINE HCL/PF 2% SDV 5ML VIAL ONE (12:48)
[2018-04-19] MEDS ORDERED: PROPOFOL 20 ML ONE ×3 (12:48→14:03)
[2018-04-19] MEDS ORDERED: SUCCINYLCHOLINE CHLORIDE 200 MG/10 ML VIAL ONE ×2 (12:48→14:06)
[2018-04-19] MEDS ORDERED: DEXAMETHASONE SOD PHOSPHATE 4 MG/1 ML VIAL ONE (12:49)
[2018-04-19] MEDS ORDERED: KETOROLAC TROMETHAMINE 30 MG/1 ML VIAL ONE (12:50)
[2018-04-19] MEDS ORDERED: oxyCODONE HCL 5 MG TABLET PO PRN ×2 (12:57)
[2018-04-19] MEDS ORDERED: ONDANSETRON 4 MG/2 ML VIAL IVPUSH PRN (12:57)
[2018-04-19] MEDS ORDERED: LACTATED RINGERS SOLUTION 1,000 ML IV SCH (13:00)
[2018-04-19] MEDS ORDERED: GENTAMICIN SO4 80 MG/2 ML VIAL IVPB ONE (13:50)
[2018-04-19] MEDS ORDERED: GENTAMICIN SO4 80 MG/2 ML VIAL ONE (13:54)
[2018-04-19] MEDS ORDERED: LIDOCAINE HCL 2% 100 MG/5 ML DISP.SYRIN ONE ×4 (14:17→14:18)
--- NOTE | 2018-04-19 15:15 | OP ---
Operative Note - Note: Operative Date: 04/19/18 Pre-Operative Diagnosis: bilateral ureteral obstruction secondary to ureteral stones Operation: cystoscopy/bilateral retrograde pyelogram/bilateral ureteroscopic laser lithotripsy/bilateral stone basketing/bilateral stent placement Findings: 8-9 mm right ureteral stone with grade 4/5 hydro 2 stones on the left measuring greater than 1.5 cm in distal ureter causing grade 3/5 hydro Post-Operative Diagnosis: Same as Pre-op Surgeon: Rishabh Alejandre Anesthesia: General Specimens Removed: ureteral stones Drains & Tubes with Location: bilateral 09/20 ureteral stents
--- NOTE | 2018-04-19 18:31 | OP ---
DATE OF OPERATION: 04/19/2018 PREOPERATIVE DIAGNOSIS: Bilateral ureteral obstruction secondary to ureteral stones. POSTOPERATIVE DIAGNOSIS: Bilateral ureteral obstruction secondary to ureteral stones. ATTENDING SURGEON: Marko Alejandre MD ANESTHESIA: General. OPERATION: As follows, the patient was brought into the operating room and placed in a supine position on the operating room table. The patient was given anesthesia and preoperative antibiotics. He was then placed in the dorsal lithotomy position, prepped and draped in the usual sterile manner. The patient required bilateral retrograde pyelograms due to the fact that there was an 8- to 9-mm right distal ureteral stone which had not passed over a period of 1 week. At the time of the CAT scan for the right renal colic, 2 stones which measured 1.9 and 0.6 cm were noted in the distal left ureter. The patient was high risk for bilateral ureteral obstruction, infection, and kidney injury. It was decided that both sides would need retrograde pyelography. The patient understood all risks to the procedures and gave informed consent. Right retrograde pyelogram showed a distal filling defect measuring about 8- to 9-mm. At this point, the wire was passed proximally, and an ureteroscope was placed into the right ureter. The stone was seen, and laser lithotripsy using the holmium laser was performed. Multiple stone fragments were then basketed and sent for analysis. They were labeled as right ureteral stone. With a wire in place, a 6-Yak[place] 24-cm stent was placed utilizing Seldinger technique. At this point, the left ureter was intubated. This was more difficult as both ureteral stones had migrated into the intramural tunnel causing significant obstruction. With difficulty, a wire was passed proximally. At this point, the ureteroscope was placed into the ureter, and the stones were manipulated until a more proximal position in the ureter. There the stones were fragmented utilizing the holmium laser under direct ureteroscopic visualization. Multiple stones were removed utilizing a stone basket. With all stones removed, a 6-Yakut 24-cm stent was placed over the wire utilizing Seldinger technique. No complications were noted. The patient tolerated the procedure very well. MARKO LOVING M.D. [id number]
[2018-04-19 19:13] VITALS: BP 134/73; PULSE 70; TEMP 97.9
--- NOTE | 2018-04-21 15:52 | PATH ---
Surgical Pathology Report Patient Name: JEWELL CALLES Med. Rec. #: [id number] /Age/Gender: 1940 (Age: 78) / M Account: [id number] Location: [facility] Taken: 04/19/2018 Received: 04/20/2018 Reported: 04/21/2018 Physicians: Rishabh Alejandre Specimen(s) Received A: RIGHT URETERAL STONE B: LEFT URETERAL STONE Clinical History Bilateral ureteral stones Final Diagnosis A. URETERAL STONE, RIGHT, LASER LITHOTRIPSY AND STONE BASKETING: URETEROLITHIASIS. MACROSCOPIC DIAGNOSIS. B. URETERAL STONE, LEFT, LASER LITHOTRIPSY AND STONE BASKETING: URETEROLITHIASIS. MACROSCOPIC DIAGNOSIS. Electronically Signed Marlen Logan M.D. Gross Description A. Received fresh labeled "right ureteral stone" are 2 brown-cooley, irregular calculi measuring 0.2 and 0.3 cm. The specimen is sent for chemical analysis. B. Received fresh labeled "left ureteral stone" are 3 brown-cooley, irregular calculi ranging in size from 0.4-0.7 cm. The specimen is sent for chemical analysis. MLSZ/04/20/2018 sanml/04/20/2018
[2018-04-29 11:26] LABS: CA OXALATE MONOHYDR. 95 % (.); WEIGHT 21.7 mg (.)
== END 2018-04-19 19:13 | disposition home or self-care (01) ==
LOC: JASU-SURG 09:16
PROVIDERS: ATTEND Urology
PROC: 0TC78ZZ Extirpation of Matter from Left Ureter, Via Natural or Artificial Opening Endoscopic (ICD-10-PCS; principal; 2018-04-19 11:00)
PROC: 0TC68ZZ Extirpation of Matter from Right Ureter, Via Natural or Artificial Opening Endoscopic (ICD-10-PCS; 2018-04-19 11:00)
DX: N20.1 Calculus of ureter (principal)
CPT/HCPCS: 36415; 82360; 88300-TC; 94760

== ENCOUNTER 2018-05-10 07:57 | Day surgery (SDC) | payer OTHER ==
[2018-05-07 11:27] VITALS: BMI 33.1
[2018-05-10] MEDS ORDERED: MIDAZOLAM HCL 2 MG/2 ML SINGLE DOSE VIAL ONE ×2 (09:34→09:59)
[2018-05-10] MEDS ORDERED: ONDANSETRON 4 MG/2 ML VIAL IVPUSH PRN (10:22)
[2018-05-10] MEDS ORDERED: ACETAMINOPHEN 325 MG TABLET (FP) PO PRN (10:22)
[2018-05-10] MEDS ORDERED: LACTATED RINGERS SOLUTION 1,000 ML IV SCH (10:30)
--- NOTE | 2018-05-10 11:13 | OP ---
Operative Note - Note: Operative Date: 05/10/18 Pre-Operative Diagnosis: Left renal stone Operation: Lew[place] ESWL Findings: 8 mm mid pole Left renal stone Post-Operative Diagnosis: Same as Pre-op Surgeon: Rishabh Alejandre Anesthesia: Fractional, Topical Estimated Blood Loss (mls): 0 Operative Report Dictated: Yes
[2018-05-10 11:48] VITALS: BP 119/85; PULSE 70; TEMP 97.9
--- NOTE | 2018-05-11 09:54 | OP ---
DATE OF OPERATION: 05/10/2018 PREOPERATIVE DIAGNOSIS: Left renal stone. POSTOPERATIVE DIAGNOSIS: Left renal stone. PROCEDURE: Left extracorporeal shock wave lithotripsy. ATTENDING: Marko Loving MD ANESTHESIA: General. OPERATION FOLLOWS: The patient was brought in the operating room, placed in supine position on the operating room table. Ultrasonography and fluoroscopy were performed. An 8-mm left mid pole stone was identified. anesthesia and preoperative antibiotics were then administered. Shock wave lithotripsy was performed. No complications were noted. The disposition of the patient was to the recovery room. Patient has a left ureteral stent that will be required to be removed. This will be scheduled in the office setting. MARKO LOVING M.D. [id number]
== END 2018-05-10 11:49 | disposition home or self-care (01) ==
LOC: JASU-SURG 07:57
PROVIDERS: ATTEND Urology
PROC: 0TF4XZZ Fragmentation in Left Kidney Pelvis, External Approach (ICD-10-PCS; principal; 2018-05-10 09:30)
DX: N20.0 Calculus of kidney (principal)

== ENCOUNTER 2018-05-14 09:53 | Inpatient (IN) | payer OTHER ==
--- NOTE | 2018-05-14 10:50 | PDOC ---
History of Present Illness - General Chief Complaint: SIRS, Suspected/Possible Stated Complaint: LOW TEMP Time Seen by Provider: 05/14/18 10:50 - History of Present Illness Initial Comments: 78yo M with history of BPH and kidney stones presenting with weakness and poor po intake. Patient reports that he had a left-sided lithotripsy performed by Dr. Alejandre on Thursday. Since that time he has not eaten very much at home and has felt lightheaded. Patient endorses dysuria but he has had this for several weeks. Reports fevers at home for which he has taken tylenol. He called Dr. Lorenza Narvaez earlier in the week for fever who sent nitrofurantoan to the patient's pharmacy. No chest pain or shortness of breath. Past History - Past Medical History Allergies/Adverse Reactions: Allergies Allergy/AdvReac Type Severity Reaction Status Date / Time No Known Drug Allergies Allergy Verified 04/19/18 09:42 Home Medications: Ambulatory Orders Nitrofurantoin Monohyd/M-Cryst [Nitrofurantoin [place]-Mcr 100 mg] 100 mg PO BID Anemia: No Asthma: No Cancer: Yes (COLON CA, status post resection and chemo ) Cardiac Disorders: No CVA: No COPD: No CHF: No Dementia: No Diabetes: No GI Disorders: No Disorders: Yes (KIDNEY STONES W/ LITHOTRIPSY, BPH) HTN: No Hypercholesterolemia: No Liver Disease: No Seizures: No Thyroid Disease: No - Surgical History Abdominal Surgery: Yes (COLON RESECTION) Appendectomy: Yes Cardiac Surgery: No Cholecystectomy: No Lung Surgery: No Neurologic Surgery: No Orthopedic Surgery: No - Immunization History Immunization Up to Date: Yes - Suicide/Smoking/Psychosocial Hx Smoking Status: No Smoking History: Unknown if ever smoked Have you smoked in the past 12 months: No Number of Cigarettes Smoked Daily: 0 Hx Alcohol Use: No Drug/Substance Use Hx: No Substance Use Type: None Hx Substance Use Treatment: No Review of Systems - Review of Systems Comments:: Constitutional: +fever, +chills HEENT: no throat pain, no dysphagia Cardiovascular: no chest pain, no palpitations Respiratory: no cough, no shortness of breath Gastrointestinal: no abdominal pain, no nausea, no vomiting Genitourinary: +dysuria, +hematuria Musculoskeletal: no myalgia, no arthralgia Skin: no rash, no itching Neurologic: no headache, +lightheadedness *Physical Exam - Vital Signs Last Vital Signs Temp Pulse Resp BP Pulse Ox 102.7 F H 82 20 105/57 L 96 05/14/18 10:41 05/14/18 10:04 05/14/18 10:04 05/14/18 10:04 05/14/18 10:04 - Physical Exam Comments: General: Awake, alert, and fully oriented, in no acute distress Head: No signs of trauma Eyes: EOMI, sclera anicteric ENT: Dry mucus membranes Neck: Normal ROM, supple Lungs: Lungs clear, Normal breath sounds Cardio: Regular rhythm, S1 and S2 present Abdomen: Soft, nontender. No guarding, no rebound, no masses Extremities: Normal range of motion, No calf tenderness, Distal pulses present SKIN: Warm, Dry, normal turgor Neurologic: Cranial nerves II through XII grossly intact. Normal speech Moderate Sedation - Procedure Monitoring Vital Signs: Procedure Monitoring Vital Signs Temperature 102.7 F H 05/14/18 10:41 Pulse Rate 82 05/14/18 10:04 Respiratory Rate 20 05/14/18 10:04 Blood Pressure 105/57 L 05/14/18 10:04 O2 Sat by Pulse Oximetry (%) 96 05/14/18 10:04 ED Treatment Course - LABORATORY CBC & Chemistry Diagram: 05/14/18 10:40 05/14/18 10:40 Medical Decision Making - Medical Decision Making 78yo M with history of BPH and kidney stones presenting with weakness and poor po intake. Febrile 102.7, Septic workup performed Tylenol Rocephin 1L NS Spoke with Dr. Alejandre who agrees with Rocephin and admission. EKG: rate 86, QTc 411, Sinus arrhythmia-- not present on previous EKG on . Patient denies history of abnormal heart rhythm and has never seen a multimedia author. Concern for obstructing stone-- CT spiral ordered Plan to admit. 05/14/18 13:05 Discussed case with inpatient team who accepted patient for admission under Dr. San. *DC/Admit/Observation/Transfer Diagnosis at time of Disposition: UTI (urinary tract infection), BURAK (acute kidney injury) - Discharge Dispostion Condition at time of disposition: Guarded Decision to Admit order: Yes - Referrals - Patient Instructions - Post Discharge Activity
[2018-05-14] MEDS ORDERED: ACETAMINOPHEN INJECTION 100 ML IVPB ONE (10:53)
[2018-05-14 11:06] LABS: URINE APPEARANCE SLCLOUDY; URINE BILIRUBIN NEGATIVE (<2.0 mg/dL); URINE COLOR AMBER; URINE GLUCOSE (UA) NEGATIVE (NEGATIVE); URINE KETONE NEGATIVE (NEGATIVE); URINE LEUK ESTERASE 2+ (NEGATIVE); URINE NITRITE NEGATIVE (NEGATIVE); URINE PROTEIN 1+ (NEGATIVE); URINE UROBILINOGEN 4.0 E.U/dl mg/dL (0.2-1.0)
[2018-05-14 11:07] LABS: BASO % 0.7 % (0-2.0); EOS % 0.4 % (0-4.5); HEMATOCRIT 40.3 % (35.4-49); HEMOGLOBIN 13.8 GM/dL (11.7-16.9); LYMPH % 6.6 % (8-40); MCH 33.5 pg (25.7-33.7); MCHC 34.3 g/dl (32.0-35.9); MEAN CELL VOLUME 97.7 fl (80-96); MEAN PLT VOLUME 8.7 fl (7.5-11.1); MONO % 9.8 % (3.8-10.2); NEUT % 82.5 % (42.8-82.8); PLATELET COUNT 170 K/MM3 (134-434); RBC 4.12 M/mm3 (4.00-5.60); WHITE BLOOD COUNT 15.4 K/mm3 (4.0-10.0)
[2018-05-14] MEDS ORDERED: SODIUM CHLORIDE 1,000 ML IV STA (11:09)
[2018-05-14] MEDS ORDERED: ACETAMINOPHEN 1000 MG/100 ML VIAL (NON FORMULARY) IVPB ONE (11:15)
[2018-05-14 11:24] LABS: INR 1.38 (0.83-1.09); PROTHROMBIN TIME (PATIENT) 16.3 SEC (9.7-13.0)
[2018-05-14 11:27] LABS: ACTIVATED PTT 28.2 SECONDS (25.2-36.5)
[2018-05-14 11:31] LABS: URINE MUCUS RARE
[2018-05-14 11:32] LABS: ALBUMIN 2.6 g/dl (3.4-5.0); ALK PHOS 90 U/L (45-117); ANION GAP 9 MMOL/L (8-16); BILIRUBIN,TOTAL 1.5 mg/dL (0.2-1); BLOOD UREA NITROGEN 22 mg/dL (7-18); CALCIUM 8.2 mg/dL (8.5-10.1); CHLORIDE 99 mmol/L (98-107); CO2 26 mmol/L (21-32); CREATININE 1.5 mg/dL (0.55-1.3); GLUCOSE,RANDOM 139 mg/dL (74-106); POTASSIUM 4.1 mmol/L (3.5-5.1); SGOT/AST 23 U/L (15-37); SGPT/ALT 27 U/L (13-61); SODIUM 134 mmol/L (136-145); TOT PROT 6.3 g/dl (6.4-8.2)
[2018-05-14 12:12] LABS: VENOUS PC02 44.7 mmHg (38-52); VENOUS PH 7.38 (7.32-7.42); VENOUS PO2 36.5 mmHg (28-48)
[2018-05-14] MEDS ORDERED: CEFTRIAXONE 1,000 MG in DEXTROSE 5%-WATER - 50 ML IVPB ONE (12:12)
[2018-05-14] MEDS ORDERED: CEFTRIAXONE 1 GM/50 ML BAG ONE (12:16)
--- NOTE | 2018-05-14 12:51 | EKG ---
Test Reason : Blood Pressure : / mmHG Vent. Rate : 086 BPM Atrial Rate : 086 BPM P-R Int : 142 ms QRS Dur : 078 ms QT Int : 344 ms P-R-T Axes : 043 -54 009 degrees QTc Int : 411 ms SINUS RHYTHM WITH MARKED SINUS ARRHYTHMIA LEFT AXIS DEVIATION ABNORMAL ECG WHEN COMPARED WITH ECG OF 12-APR-2018 07:22, VENT. RATE HAS INCREASED BY 34 BPM CRITERIA FOR INFERIOR INFARCT ARE NO LONGER PRESENT Confirmed by SASHA JORGENSEN MD ([id number]) on 05/14/2018 12:50:37 PM Referred By: Confirmed By:SASHA JORGENSEN MD
--- NOTE | 2018-05-14 13:47 | PDOC ---
Attending Attestation - Resident Resident Name: Nori Diamond - ED Attending Attestation I have performed the following: I have examined & evaluated the patient, The case was reviewed & discussed with the resident, I agree w/resident's findings & plan, Exceptions are as noted - HPI HPI: 05/14/18 13:41 - Physicial Exam PE: 05/14/18 13:41 awake alert lungs clear bilaterally heart rrr no mrg abd soft nt nd. ext wwp no edema no rash. skin warm and normal. no cva tenderness. nuero alert oriented x 3. - Medical Decision Making 05/14/18 13:42 78 yo M h/o lithotripsy on Thursday 5 days ago, developed fever day following, started on macro bid. still having fever for four days. nausea, no vomitng. no coug no runny nose no myalgia. chills. no diarreha. pain resolved. did pass small stones. on exam pt abd normal. flank normal. differential sepsis, bactermiea, obstructive urolopathy, renal failure, dehuydration, plan iv abx, ivf, labs lactate. will d/w dr esha melvin. d/w dr oliva, given ceftriaxone. focused ED ultrasound renal. bilateral kidneys scanned in two planes. no hydronephrosis noted. bladder nondistended. but appears thickened. small hyperchoic debris in bladder. impression: normal renal ultrasound, thickened bladder with hyperechoic debris. will obtain ct a/p r/o retained stone, infected. stone. d/w hospitalist, will admit. <Tamika Mcclure - Last Filed: 05/14/18 13:40> - HPI HPI: 05/14/18 13:48 The patient is a 78 year old male, with a significant past medical history of Colon CA, Overactive bladder, Vertigo, and Kidney stones who presents to the emergency department with poor po intake due to a few episodes of lithotripsy and weakness for the last 4 days. The patient notes he had a left-sided lithotripsy performed by Dr. Alejandre on Thursday and has not been able to eat much since then. The patient notes he felt nauseous the day after his procedure accompanied with chills and 4 days of fever. The patient denies chest pain, shortness of breath, headache and dizziness. The patient denies diarrhea or constipation. The patient denies dysuria, frequency, urgency and hematuria. Allergies: NKDA Past surgical history: Colon resection and Appendectomy Social history: None reported PCP: Dr. Morales <Ingrid Singh - Last Filed: 05/14/18 13:49> Heart Score/ECG Review #1 General ECG Interpretation: Sinus Rhythm, Normal Rate (86), Normal Intervals, No acute ischemic changes <Tamika Mcclure - Last Filed: 05/14/18 13:40> Attestations - Attestations 05/14/18 13:49 Documentation prepared by Ingrid Singh, acting as medical coder for Tamika Mcclure MD, MD <Ingrid Singh - Last Filed: 05/14/18 13:49>
--- NOTE | 2018-05-14 14:26 | PN ---
Teaching Attending Note Name of Resident: Sulaiman Pichardo ATTENDING PHYSICIAN STATEMENT I saw and evaluated the patient. I reviewed the resident's note and discussed the case with the resident. I agree with the resident's findings and plan as documented. SUBJECTIVE: The patient is a 78-year-old male with PMHx of BPH, kidney stones who comes into the ED complaining of a one-week history of generalized weakness, decreased appetite, fevers and chills. The patient states that he had a lithotrypsy procedure with Dr. Alejandre this past Thursday, and was on oral antibiotic, Nitrofurantoin. OBJECTIVE: Vital Signs Temperature 100.0 F H 05/14/18 12:45 Pulse Rate 59 L 05/14/18 13:33 Respiratory Rate 22 H 05/14/18 13:33 Blood Pressure 108/80 05/14/18 13:33 O2 Sat by Pulse Oximetry (%) 98 05/14/18 13:33 Initial Vital Signs Temp Pulse Resp BP Pulse Ox 99.5 F 82 20 105/57 L 96 05/14/18 10:04 05/14/18 10:04 05/14/18 10:04 05/14/18 10:04 05/14/18 10:04 GENERAL: Awake, alert, and fully oriented, in no acute distress. HEAD: Normal with no signs of trauma. EYES: Pupils equal, round and reactive to light, extraocular movements intact, sclera anicteric, conjunctiva clear. LUNGS: Breath sounds equal, clear to auscultation bilaterally. No wheezes, and no crackles. No accessory muscle use. HEART: Regular rate and rhythm, normal S1 and S2 without murmur, rub or gallop. ABDOMEN: Soft, nontender, not distended, normoactive bowel sounds, no guarding, no rebound, no masses. EXTREMITIES: 2+ pulses, warm, well-perfused. No calf tenderness. No peripheral edema. NEUROLOGICAL: Cranial nerves II-X intact. Normal speech. PSYCHIATRIC: Cooperative. Good eye contact. Appropriate mood and affect. SKIN: Warm, dry, normal turgor, no rashes or lesions noted, normal capillary refill. CBCD WBC 15.4 K/mm3 (4.0-10.0) H 05/14/18 10:40 RBC 4.12 M/mm3 (4.00-5.60) 05/14/18 10:40 Hgb 13.8 GM/dL (11.7-16.9) 05/14/18 10:40 Hct 40.3 % (35.4-49) 05/14/18 10:40 MCV 97.7 fl (80-96) H 05/14/18 10:40 MCHC 34.3 g/dl (32.0-35.9) 05/14/18 10:40 RDW 13.0 % (11.9-15.9) D 05/14/18 10:40 Plt Count 170 K/MM3 (134-434) D 05/14/18 10:40 MPV 8.7 fl (7.5-11.1) 05/14/18 10:40 CMP Sodium 134 mmol/L (136-145) L 05/14/18 10:40 Potassium 4.1 mmol/L (3.5-5.1) 05/14/18 10:40 Chloride 99 mmol/L (98-107) 05/14/18 10:40 Carbon Dioxide 26 mmol/L (21-32) 05/14/18 10:40 Anion Gap 9 MMOL/L (8-16) 05/14/18 10:40 BUN 22 mg/dL (7-18) H 05/14/18 10:40 Creatinine 1.5 mg/dL (0.55-1.3) H 05/14/18 10:40 Creat Clearance w eGFR 45.50 (>60) 05/14/18 10:40 Random Glucose 139 mg/dL (74-106) H 05/14/18 10:40 Calcium 8.2 mg/dL (8.5-10.1) L 05/14/18 10:40 Total Bilirubin 1.5 mg/dL (0.2-1) H 05/14/18 10:40 AST 23 U/L (15-37) 05/14/18 10:40 ALT 27 U/L (13-61) 05/14/18 10:40 Alkaline Phosphatase 90 U/L (45-117) 05/14/18 10:40 Total Protein 6.3 g/dl (6.4-8.2) L 05/14/18 10:40 Albumin 2.6 g/dl (3.4-5.0) L 05/14/18 10:40 Home Medications Medication Instructions Recorded Nitrofurantoin Monohyd/M-Cryst 100 mg PO BID 05/14/18 [Nitrofurantoin [place]-Mcr 100 mg] Urine Test Results Urine Color Charlee 05/14/18 10:44 Urine Appearance Slcloudy 05/14/18 10:44 Urine pH 6.0 (5.0-8.0) 05/14/18 10:44 Ur Specific [place] 1.014 (1.010-1.035) 05/14/18 10:44 Urine Protein 1+ (NEGATIVE) H 05/14/18 10:44 Urine Glucose (UA) Negative (NEGATIVE) 05/14/18 10:44 Urine Ketones Negative (NEGATIVE) 05/14/18 10:44 Urine Blood 2+ (NEGATIVE) H 05/14/18 10:44 Urine Nitrite Negative (NEGATIVE) 05/14/18 10:44 Urine Bilirubin Negative (<2.0 mg/dL) 05/14/18 10:44 Ur Leukocyte Esterase 2+ (NEGATIVE) H 05/14/18 10:44 Urine Mucus Rare 05/14/18 10:44 ASSESSMENT AND PLAN: Patient is a 78-year-old male with a past medical history of BPH, and kidney stones who comes into the emergency department complaining of generalized malaise and fever since lithotripsy this past Thursday. #Sepsis due to having acute UTI on IV rocephin , consult, Pili and ID Dr. Harvey for consult. #BURAK creatinine 1.5, on IVF DVt Px: heparin SQ 5000 units Q8H admit med surg
--- NOTE | 2018-05-14 14:43 | HP ---
CHIEF COMPLAINT: Fever, Weakness, decreased appetite PCP: Dr. Morales HISTORY OF PRESENT ILLNESS: The patient is a 78-year-old male with a history of BPH, kidney stones who comes into the ED complaining of a one-week history of generalized weakness, decreased appetite, fevers and chills. The patient states that he had a lithotrypsy procedure with Dr. Alejandre this past Thursday. Since the procedure, the patient has been feeling generalized weakness and decreased appetite. Thursday evening, the patient noted a fever to 102 measured orally at home and chills. The patient's called Dr. Alejandre who prescribed nitrofurantoin BID. The patient began antibiotics Thursday night and has been taking them all week. When the patient symptoms did not improve, he presented to the ED for evaluation. The patient also endorses dark-colored urine and debris in his urine since Thursday. The patient denies chest pain, shortness of breath, abdominal pain, dysuria, urinary retention, genital pain or back pain. In the ED, the patient was noted to be febrile to 102.7 with a WBC count of 15.4 and a creatinine of 1.5. Dr. Alejandre was consulted by ER staff and recommended IV Rocephin and admission. Recent Travel: none PAST MEDICAL HISTORY: see HPI PAST SURGICAL HISTORY: b/l ureteral stent placement in March lithotrypsy Thursday, 05/10 Social History: Smoking: denies Alcohol: denies Drugs: denies Family History: non-contributory Allergies No Known Drug Allergies Allergy (Verified 04/19/18 09:42) HOME MEDICATIONS: Home Medications Medication Instructions Recorded Nitrofurantoin Monohyd/M-Cryst 100 mg PO BID 05/14/18 [Nitrofurantoin Garden-Mcr 100 mg] REVIEW OF SYSTEMS CONSTITUTIONAL: Absent: diaphoresis, generalized weakness, malaise, loss of appetite, weight change HEENT: Absent: rhinorrhea, nasal congestion, throat pain, throat swelling, difficulty swallowing, mouth swelling, ear pain, eye pain, visual changes CARDIOVASCULAR: Absent: chest pain, syncope, palpitations, irregular heart rate, lightheadedness , peripheral edema RESPIRATORY: Absent: cough, shortness of breath, dyspnea with exertion, orthopnea, wheezing, stridor, hemoptysis GASTROINTESTINAL: Absent: abdominal pain, abdominal distension, nausea, vomiting, diarrhea, constipation, melena, hematochezia GENITOURINARY: Absent: dysuria, frequency, urgency, hesitancy, flank pain, genital pain MUSCULOSKELETAL: Absent: myalgia, arthralgia, joint swelling, back pain, neck pain SKIN: Absent: rash, itching, pallor HEMATOLOGIC/IMMUNOLOGIC: Absent: easy bleeding, easy bruising, lymphadenopathy, frequent infections ENDOCRINE: Absent: unexplained weight gain, unexplained weight loss, heat intolerance, cold intolerance NEUROLOGIC: Absent: headache, focal weakness or paresthesias, dizziness, unsteady gait, seizure, mental status changes, bladder or bowel incontinence PSYCHIATRIC: Absent: anxiety, depression, suicidal or homicidal ideation, hallucinations. PHYSICAL EXAMINATION Vital Signs - 24 hr 05/14/18 05/14/18 05/14/18 10:04 10:20 10:35 Temperature 99.5 F Pulse Rate 82 Pulse Rate [ 84 88 Radial] Respiratory 20 20 20 Rate Blood Pressure 105/57 L Blood Pressure 123/68 147/98 [Left Arm] O2 Sat by Pulse 96 98 98 Oximetry (%) 05/14/18 05/14/18 05/14/18 10:41 11:00 12:30 Temperature 102.7 F H Pulse Rate Pulse Rate [ 89 69 Radial] Respiratory 20 22 H Rate Blood Pressure Blood Pressure 125/49 L 125/68 [Left Arm] O2 Sat by Pulse 98 98 Oximetry (%) 05/14/18 05/14/18 12:45 13:33 Temperature 100.0 F H Pulse Rate Pulse Rate [ 59 L Radial] Respiratory 22 H Rate Blood Pressure Blood Pressure 108/80 [Left Arm] O2 Sat by Pulse 98 Oximetry (%) GENERAL: Awake, alert, and fully oriented, in no acute distress. HEAD: Normal with no signs of trauma. EYES: Pupils equal, round and reactive to light, extraocular movements intact, sclera anicteric, conjunctiva clear. No lid lag. LUNGS: Breath sounds equal, clear to auscultation bilaterally. No wheezes, and no crackles. No accessory muscle use. HEART: Regular rate and rhythm, normal S1 and S2 without murmur, rub or gallop. ABDOMEN: Soft, nontender, not distended, normoactive bowel sounds, no guarding, no rebound, no masses. No hepatomegaly or splenomegaly. LOWER EXTREMITIES: 2+ pulses, warm, well-perfused. No calf tenderness. No peripheral edema. NEUROLOGICAL: Cranial nerves II-X intact. Normal speech. PSYCHIATRIC: Cooperative. Good eye contact. Appropriate mood and affect. SKIN: Warm, dry, normal turgor, no rashes or lesions noted, normal capillary refill. Laboratory Results - last 24 hr 05/14/18 05/14/18 05/14/18 10:40 10:40 10:40 WBC 15.4 H RBC 4.12 Hgb 13.8 Hct 40.3 MCV 97.7 H MCH 33.5 MCHC 34.3 RDW 13.0 D Plt Count 170 D MPV 8.7 Absolute Neuts (auto) 12.7 H Neutrophils % 82.5 D Lymphocytes % 6.6 L D Monocytes % 9.8 Eosinophils % 0.4 D Basophils % 0.7 Nucleated RBC % 0 PT with INR 16.30 H INR 1.38 H PTT (Actin FS) 28.2 VBG pH 7.38 POC VBG pCO2 44.7 POC VBG pO2 36.5 Mixed VBG HCO3 26.0 H Sodium Potassium Chloride Carbon Dioxide Anion Gap BUN Creatinine Creat Clearance w eGFR Random Glucose Lactic Acid Calcium Total Bilirubin AST ALT Alkaline Phosphatase Total Protein Albumin Urine Color Urine Appearance Urine pH Ur Specific Raymond Urine Protein Urine Glucose (UA) Urine Ketones Urine Blood Urine Nitrite Urine Bilirubin Urine Urobilinogen Ur Leukocyte Esterase Urine WBC (Auto) Urine RBC (Auto) Urine Mucus Influenza A (Rapid) Influenza B (Rapid) 05/14/18 05/14/18 05/14/18 10:40 10:40 10:44 WBC RBC Hgb Hct MCV MCH MCHC RDW Plt Count MPV Absolute Neuts (auto) Neutrophils % Lymphocytes % Monocytes % Eosinophils % Basophils % Nucleated RBC % PT with INR INR PTT (Actin FS) VBG pH POC VBG pCO2 POC VBG pO2 Mixed VBG HCO3 Sodium 134 L Potassium 4.1 Chloride 99 Carbon Dioxide 26 Anion Gap 9 BUN 22 H Creatinine 1.5 H Creat Clearance w eGFR 45.50 Random Glucose 139 H Lactic Acid 1.6 Calcium 8.2 L Total Bilirubin 1.5 H AST 23 ALT 27 Alkaline Phosphatase 90 Total Protein 6.3 L Albumin 2.6 L Urine Color Charlee Urine Appearance Slcloudy Urine pH 6.0 Ur Specific Raymond 1.014 Urine Protein 1+ H Urine Glucose (UA) Negative Urine Ketones Negative Urine Blood 2+ H Urine Nitrite Negative Urine Bilirubin Negative Urine Urobilinogen 4.0 e.u/dl Ur Leukocyte Esterase 2+ H Urine WBC (Auto) 54 Urine RBC (Auto) 6 Urine Mucus Rare Influenza A (Rapid) Influenza B (Rapid) 05/14/18 11:42 WBC RBC Hgb Hct MCV MCH MCHC RDW Plt Count MPV Absolute Neuts (auto) Neutrophils % Lymphocytes % Monocytes % Eosinophils % Basophils % Nucleated RBC % PT with INR INR PTT (Actin FS) VBG pH POC VBG pCO2 POC VBG pO2 Mixed VBG HCO3 Sodium Potassium Chloride Carbon Dioxide Anion Gap BUN Creatinine Creat Clearance w eGFR Random Glucose Lactic Acid Calcium Total Bilirubin AST ALT Alkaline Phosphatase Total Protein Albumin Urine Color Urine Appearance Urine pH Ur Specific Raymond Urine Protein Urine Glucose (UA) Urine Ketones Urine Blood Urine Nitrite Urine Bilirubin Urine Urobilinogen Ur Leukocyte Esterase Urine WBC (Auto) Urine RBC (Auto) Urine Mucus Influenza A (Rapid) Negative Influenza B (Rapid) Negative ASSESSMENT/PLAN: The patient the 78-year-old male with a past medical history of BPH, and kidney stones who comes into the emergency department complaining of generalized malaise and fever since lithotripsy this past Thursday. #fever, chills and generalized weakness 2/2 UTI -urinalysis indicative of UTI -Dr. Alejandre aware of patient. Recommends Rocephin and admission; no additional coverage necessary in the setting of recent procedure. -ID consult; Dr. Harvey -s/p rocephin 1g in ED -will order IV Rocephin 2 g daily. -IVF NS@75 x 1 bag -f/u blood culture, urine culture. -urinary changes likely normal in the setting of recent instrumentation. #BURAK -creatinine 1.5, was .4 in March -IVF as above -monitor creatinine daily #FEN -NS@75 x 1 bag -lytes WNL -regular diet #prophy -heparin SQ 5000 units Q8H #dispo -admit med surg Visit type - Emergency Visit Emergency Visit: Yes ED Registration Date: 05/14/18 Care time: The patient presented to the Emergency Department on the above date and was hospitalized for further evaluation of their emergent condition. - New Patient This patient is new to me today: Yes Date on this admission: 05/14/18 - Critical Care Critical Care patient: No
[2018-05-14] MEDS ORDERED: SODIUM CHLORIDE 1,000 ML IV SCH (14:45)
[2018-05-14] MEDS ORDERED: ACETAMINOPHEN 325 MG TABLET (FP) ONE (16:23)
[2018-05-14] MEDS: ACETAMINOPHEN 325 MG TABLET (FP) PO PRN (16:33)
[2018-05-14] MEDS ORDERED: HEPARIN NA (PORCINE) 5,000 UNITS/ML 1ML VIAL SQ SCH (18:00)
[2018-05-14] MEDS ORDERED: HEPARIN NA (PORCINE) 5,000 UNITS/ML 1ML VIAL ONE (18:25)
[2018-05-14 20:46] VITALS: BMI 34.4
[2018-05-14] MEDS: HEPARIN NA (PORCINE) 5,000 UNITS/ML 1ML VIAL SQ SCH (21:41)
[2018-05-15] MEDS: ACETAMINOPHEN 325 MG TABLET (FP) PO PRN ×2 (01:34→20:20)
[2018-05-15] MEDS: HEPARIN NA (PORCINE) 5,000 UNITS/ML 1ML VIAL SQ SCH ×3 (05:56→22:00)
[2018-05-15 08:49] LABS: BASO % 0.5 % (0-2.0); EOS % 1.9 % (0-4.5); HEMATOCRIT 39.3 % (35.4-49); HEMOGLOBIN 13.3 GM/dL (11.7-16.9); LYMPH % 10.3 % (8-40); MCH 33.4 pg (25.7-33.7); MCHC 33.9 g/dl (32.0-35.9); MEAN CELL VOLUME 98.4 fl (80-96); MEAN PLT VOLUME 9.2 fl (7.5-11.1); MONO % 8.4 % (3.8-10.2); NEUT % 78.9 % (42.8-82.8); PLATELET COUNT 159 K/MM3 (134-434); RBC 3.99 M/mm3 (4.00-5.60); RDW 13.5 % (11.9-15.9); WHITE BLOOD COUNT 16.5 K/mm3 (4.0-10.0)
[2018-05-15] MEDS ORDERED: DEXTROSE 5%-WATER 100 ML IVPB ONE (08:53)
[2018-05-15 09:01] LABS: INR 1.27 (0.83-1.09)
[2018-05-15 09:04] LABS: ACTIVATED PTT 20.1 SECONDS (25.2-36.5)
--- NOTE | 2018-05-15 09:21 | PN ---
Physical Exam: SUBJECTIVE: Patient seen and examined Patient is feeling better , had fever overnight. OBJECTIVE: Initial Vital Signs Temp Pulse Resp BP Pulse Ox 99.5 F 82 20 105/57 L 96 05/14/18 10:04 05/14/18 10:04 05/14/18 10:04 05/14/18 10:04 05/14/18 10:04 Vital Signs Temperature 98.6 F 05/15/18 07:00 Pulse Rate 67 05/15/18 07:00 Respiratory Rate 18 05/15/18 07:00 Blood Pressure 106/51 L 05/15/18 07:00 O2 Sat by Pulse Oximetry (%) 97 05/14/18 20:32 GENERAL: The patient is awake, alert, and fully oriented, in no acute distress. HEAD: Normal with no signs of trauma. EYES: PERRL, extraocular movements intact, sclera anicteric, conjunctiva clear. ENT: Ears normal, oropharynx clear without exudates, moist mucous membranes. NECK: Trachea midline, full range of motion, supple. LUNGS: Breath sounds equal, clear to auscultation bilaterally, no wheezes, no crackles, no accessory muscle use. HEART: Regular rate and rhythm, S1, S2 without murmur, rub or gallop. ABDOMEN: Soft, NT, ND, normoactive bowel sounds, no guarding, no rebound, no hepatosplenomegaly, no masses. No cva tenderness. EXTREMITIES: 2+ pulses, warm, well-perfused, no edema. NEUROLOGICAL: Cranial nerves II through XII grossly intact. Normal speech, gait not observed. PSYCH: Normal mood, normal affect. SKIN: Warm, dry, normal turgor, no rashes or lesions noted Active Medications Generic Name Dose Route Start Last Admin Trade Name Freq PRN Reason Stop Dose Admin Acetaminophen 650 mg 05/14/18 14:44 05/15/18 01:34 Tylenol - PO 650 mg Q6H PRN Administration FEVER Heparin Sodium (Porcine) 5,000 unit 05/14/18 22:00 05/15/18 05:56 Heparin - SQ 5,000 unit TID RAIN Administration Ceftriaxone Sodium 2 gm/ 100 mls @ 200 mls/hr 05/15/18 10:00 Dextrose IVPB DAILY [facility] Protocol Microbiology 05/14/18 10:40 Blood - Peripheral Venous Blood Culture - Preliminary NO GROWTH OBTAINED AFTER 48 HOURS, INCUBATION TO CONTINUE FOR 3 DAYS. 05/14/18 10:40 Blood - Peripheral Venous Blood Culture - Preliminary NO GROWTH OBTAINED AFTER 48 HOURS, INCUBATION TO CONTINUE FOR 3 DAYS. 05/15/18 12:15 Urine - Urine Clean Catch Urine Culture - Final NO GROWTH OBTAINED 05/14/18 10:44 Urine - Urine Clean Catch Urine Culture - Final ASSESSMENT/PLAN: Patient is a 78-year-old male with a past medical history of BPH, and kidney stones who comes into the emergency department complaining of generalized malaise and fever since lithotripsy this past Thursday. #Sepsis due to having acute UTI on IV rocephin continue, will monitor, no growth so far, will consult P[facility] and ID Dr. Harvey appreciated continue IVF for now. #BURAK creatinine 1.5--> 1.8 today will continue IVF , and monitor renal function. DVt Px: heparin SQ 5000 units Q8H admit med surg Visit type - Emergency Visit Emergency Visit: Yes ED Registration Date: 05/14/18 Care time: The patient presented to the Emergency Department on the above date and was hospitalized for further evaluation of their emergent condition. - New Patient This patient is new to me today: No - Critical Care Critical Care patient: No - Discharge Referral Referred to [facility] Med P.C.: No
[2018-05-15] MEDS: CEFTRIAXONE 2 GM in DEXTROSE 5%-WATER 100 ML IVPB SCH (09:27)
[2018-05-15 09:59] LABS: ANION GAP 12 MMOL/L (8-16); BLOOD UREA NITROGEN 28 mg/dL (7-18); CHLORIDE 105 mmol/L (98-107); CO2 21 mmol/L (21-32); CREATININE 1.8 mg/dL (0.55-1.3); GLUCOSE,RANDOM 77 mg/dL (74-106); MAGNESIUM 1.9 mg/dL (1.8-2.4); PHOSPHOROUS 2.8 mg/dL (2.5-4.9); SODIUM 137 mmol/L (136-145)
--- NOTE | 2018-05-15 12:13 | PN ---
Progress Note (short form) - Note Progress Note: ID consult dictated imp/reccd 78 yo man s/p lithotripsy on Thursday, develooped fevers post procedure, poor appetite, called his doctor and was started on macrobid no vomiting admitted with fever of 102.7 ct scan no hydronephrosis, no perinephric collection, no abscess this am feels much improved appetite is back no BM suspect source of fever is urine but the urine has been sterilized by the macrobid given clinical improvement would continue ceftriaxone and IVF d/w hospitalist Problem List - Problems (1) Fever Code(s): R50.9 - FEVER, UNSPECIFIED Qualifiers: Fever type: unspecified Qualified Code(s): R50.9 - Fever, unspecified (2) UTI (urinary tract infection) Code(s): N39.0 - URINARY TRACT INFECTION, SITE NOT SPECIFIED (3) Kidney stone Code(s): N20.0 - CALCULUS OF KIDNEY
--- NOTE | 2018-05-15 13:43 | CONS ---
DATE OF CONSULTATION: 05/15/2018 DATE OF DICTATION: 05/15/2018 REQUESTING PHYSICIAN: Hospitalist Service. CHANNEL LAYER: Lila Jimenez M.D. HISTORY OF PRESENT ILLNESS: This is a 78-year-old man who is status post left lithotripsy on Thursday who reports that he had some kidney stones that did not pass and he had this procedure with his urologist. He subsequently developed fevers post procedure. He prior to surgery had been on Levaquin. He called his urologist, , was started on Macrobid. He reports very poor appetite. He has not had any vomiting. He has not had a bowel movement since the procedure. He notes his urine is quite dark in color. He denies any ariela blood. He denies any respiratory symptoms. He has no cough or shortness of breath. He has no flank pain and he has had no nausea or vomiting. PAST MEDICAL HISTORY: His past medical history is notable for a history of BPH, kidney stones. He had kidney stones once in the past many, many years ago, which passed on their own. His past medical history is notable as well for a prior bowel resection for colon cancer. He had a laparoscopic low anterior resection in 2013. His PMD is . PAST SURGICAL HISTORY: Surgical history is notable for stent placement in March and lithotripsy this past Thursday. ALLERGIES: He has no known drug allergies. MEDICATIONS: His medications were the Marcodantin that he was taking. Prior to that, he was taking Levaquin. He denies any history of prior urinary tract infection. 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 He is . He has had no sick contacts. There has been no travel. REVIEW OF SYSTEMS: Is as per HPI. PHYSICAL EXAMINATION: General: On physical exam he is awake and alert. Vitals: His T max is 101.2 overnight. On admission, his temperature was 102.7. Current temperature is 98.6, pulse is 67, blood pressure 106/51, respiratory rate is 18. HEENT: He is normocephalic. His eyes are anicteric. Neck: His neck is supple. Lungs: Clear to auscultation. Heart: Regular rate and rhythm. Back: He has no CVA tenderness. He has no spinal tenderness. Abdomen: His abdomen is soft. He has no suprapubic discomfort. Extremities: Without edema. LABORATORY STUDIES: Labs are notable for white count of 16.5, hemoglobin 13.3, platelets are 159. BUN is 28, creatinine 1.8. LFTs are notable for a total bilirubin of 1.5. Urinalysis has 2+ leukocytes with 64 white cells. Influenza screen was negative. Cultures in 24 hours are negative and CAT scan finding is as previously stated. In summary, this is a 78-year-old man with status post lithotripsy on Thursday with fevers most likely secondary to urinary tract source. The CAT scan does not show any evidence of hydronephrosis or perinephric collection or abscess. I would suggest continuing ceftriaxone, as he clinically is improved. I suspect the culture is negative because he was taking the Macrobid. Further recommendations to follow. I would continue IV hydration as well. The case was discussed with the hospitalist. Mal [id number]
[2018-05-15] MEDS: SODIUM CHLORIDE 1,000 ML IV SCH (15:10)
[2018-05-16] MEDS: SODIUM CHLORIDE 1,000 ML IV SCH (04:00)
[2018-05-16] MEDS: HEPARIN NA (PORCINE) 5,000 UNITS/ML 1ML VIAL SQ SCH ×3 (05:51→21:16)
[2018-05-16 07:52] LABS: BASO % 0.4 % (0-2.0); EOS % 1.7 % (0-4.5); HEMOGLOBIN 11.8 GM/dL (11.7-16.9); LYMPH % 8.6 % (8-40); MCH 33.8 pg (25.7-33.7); MCHC 34.6 g/dl (32.0-35.9); MEAN CELL VOLUME 97.7 fl (80-96); MEAN PLT VOLUME 9.2 fl (7.5-11.1); MONO % 9.7 % (3.8-10.2); NEUT % 79.6 % (42.8-82.8); PLATELET COUNT 176 K/MM3 (134-434); RBC 3.49 M/mm3 (4.00-5.60); RDW 13.3 % (11.9-15.9)
[2018-05-16 08:20] LABS: ALK PHOS 92 U/L (45-117); ANION GAP 9 MMOL/L (8-16); BILIRUBIN,TOTAL 0.7 mg/dL (0.2-1); BLOOD UREA NITROGEN 32 mg/dL (7-18); CHLORIDE 106 mmol/L (98-107); CO2 22 mmol/L (21-32); CREATININE 1.7 mg/dL (0.55-1.3); GLUCOSE,RANDOM 81 mg/dL (74-106); POTASSIUM 3.8 mmol/L (3.5-5.1); SGOT/AST 15 U/L (15-37); SGPT/ALT 25 U/L (13-61); SODIUM 137 mmol/L (136-145)
[2018-05-16] MEDS ORDERED: DEXTROSE 5%-WATER 100 ML IVPB ONE (08:40)
--- NOTE | 2018-05-16 08:52 | PN ---
Progress Note, Physician History of Present Illness: seen and examined at bedside. c/o urinary frequency and some times dark urine. no bm, fever, chills or groin pain. - Current Medication List Current Medications: Active Medications Acetaminophen (Tylenol -) 650 mg PO Q6H PRN PRN Reason: FEVER Last Admin: 05/15/18 20:20 Dose: 650 mg Heparin Sodium (Porcine) (Heparin -) 5,000 unit SQ TID RAIN Last Admin: 05/16/18 05:51 Dose: 5,000 unit Ceftriaxone Sodium 2 gm/ (Dextrose) 100 mls @ 200 mls/hr IVPB DAILY RAIN; Protocol Last Admin: 05/15/18 09:27 Dose: 200 mls/hr Sodium Chloride (Normal Saline -) 1,000 mls @ 100 mls/hr IV ASDIR RAIN Stop: 05/16/18 22:29 Last Admin: 05/16/18 04:00 Dose: 100 mls/hr - Objective Vital Signs: Vital Signs Temperature 99.5 F 05/16/18 03:00 Pulse Rate 64 05/16/18 03:00 Respiratory Rate 20 05/15/18 21:00 Blood Pressure 131/71 05/16/18 03:00 O2 Sat by Pulse Oximetry (%) 97 05/14/18 20:32 Constitutional: Yes: No Distress Cardiovascular: Yes: Regular Rate and Rhythm Respiratory: Yes: CTA Bilaterally Gastrointestinal: Yes: Normal Bowel Sounds, Soft. No: Distention, Tenderness Edema: No Labs: CBC, BMP 05/16/18 06:30 05/16/18 06:30 INR, PTT INR 1.27 (0.83-1.09) H 05/15/18 06:00 Impression/Plan Impression/Plan: 78 yo M h/o bph, kidney stone with stent admitted to the floor for sepsis 2/2 complicated UTI. sepsis 2/2 complicated UTI - improving - on rocephin 2g daily day 3 - afrebile, wbc trending down - cultures to date negative BURAK - 2/2 UTI - normal baseline, trending down - cont. to monitor FEN - cont. fluid - replete lytes prn - regular diet dvt ppx w/ heparin sq Visit type - Emergency Visit Emergency Visit: No - New Patient This patient is new to me today: Yes Date on this admission: 02/17/19 - Critical Care Critical Care patient: No - Discharge Referral Referred to [facility] Med P.C.: No
[2018-05-16] MEDS: CEFTRIAXONE 2 GM in DEXTROSE 5%-WATER 100 ML IVPB SCH (09:01)
--- NOTE | 2018-05-16 10:14 | PN ---
Progress Note (short form) - Note Progress Note: still fatigued reports urine has cleared, no longer brown still with low grade fever Vital Signs Period Temp Pulse Resp BP Sys/[place]re Pulse Ox Last 24 Hr 99.4 F-100.2 F 64-80 18-20 98-131/50-71 cor-rrr lungs decreased bs at bases abd soft,nt ext no edema CBC, BMP 05/16/18 06:30 05/16/18 06:30 Microbiology 05/15/18 12:15 Urine - Urine Clean Catch Urine Culture - Final NO GROWTH OBTAINED 05/14/18 10:40 Blood - Peripheral Venous Blood Culture - Preliminary NO GROWTH OBTAINED AFTER 24 HOURS, INCUBATION TO CONTINUE FOR 4 DAYS. 05/14/18 10:40 Blood - Peripheral Venous Blood Culture - Preliminary NO GROWTH OBTAINED AFTER 24 HOURS, INCUBATION TO CONTINUE FOR 4 DAYS. 05/14/18 10:44 Urine - Urine Clean Catch Urine Culture - Final a/p suspect source of fever is urine but the urine has been sterilized by the macrobid ct scan no evidence of abscess or hydronephrosis still has bilateral stents needs urology f/u - ?removal of stents s/p laser lithotripsy/bilateral stents repeat ua and urine culture Problem List - Problems (1) Fever Code(s): R50.9 - FEVER, UNSPECIFIED Qualifiers: Fever type: unspecified Qualified Code(s): R50.9 - Fever, unspecified (2) UTI (urinary tract infection) Code(s): N39.0 - URINARY TRACT INFECTION, SITE NOT SPECIFIED (3) Kidney stone Code(s): N20.0 - CALCULUS OF KIDNEY
[2018-05-16 11:17] LABS: URINE APPEARANCE CLEAR; URINE BILIRUBIN NEGATIVE (<2.0 mg/dL); URINE COLOR LTYELLOW; URINE GLUCOSE (UA) NEGATIVE (NEGATIVE); URINE KETONE NEGATIVE (NEGATIVE); URINE LEUK ESTERASE 1+ (NEGATIVE); URINE NITRITE NEGATIVE (NEGATIVE); URINE PROTEIN NEGATIVE (NEGATIVE); URINE UROBILINOGEN 4.0 E.U/dl mg/dL (0.2-1.0)
[2018-05-16 12:49] LABS: EPI CELLS RARE /HPF (FEW)
--- NOTE | 2018-05-16 18:58 | PN ---
Teaching Attending Note Name of Resident: Rick Sandoval ATTENDING PHYSICIAN STATEMENT I saw and evaluated the patient. I reviewed the resident's note and discussed the case with the resident. I agree with the resident's findings and plan as documented. SUBJECTIVE: Patient is feeling better, with no acute distress. No fever or chills, no shortness of breath. OBJECTIVE: Vital Signs Temperature 99.2 F 05/16/18 17:11 Pulse Rate 80 05/16/18 17:11 Respiratory Rate 20 05/16/18 17:11 Blood Pressure 117/60 05/16/18 17:11 O2 Sat by Pulse Oximetry (%) 97 05/16/18 09:00 GENERAL: The patient is awake, alert, and fully oriented, in no acute distress. HEAD: Normal with no signs of trauma. EYES: PERRL, extraocular movements intact, sclera anicteric, conjunctiva clear. ENT: Ears normal, oropharynx clear without exudates, moist mucous membranes. NECK: Trachea midline, full range of motion, supple. LUNGS: Breath sounds equal, clear to auscultation bilaterally, no wheezes, no crackles, no accessory muscle use. HEART: Regular rate and rhythm, S1, S2 without murmur, rub or gallop. ABDOMEN: Soft, NT, ND, normoactive bowel sounds, no guarding, no rebound, no hepatosplenomegaly, no masses. No cva tenderness. EXTREMITIES: 2+ pulses, warm, well-perfused, no edema. NEUROLOGICAL: Cranial nerves II through XII grossly intact. Normal speech, gait not observed. PSYCH: Normal mood, normal affect. SKIN: Warm, dry, normal turgor, no rashes or lesions notedCBCD WBC 14.0 K/mm3 (4.0-10.0) H 05/16/18 06:30 RBC 3.49 M/mm3 (4.00-5.60) L 05/16/18 06:30 Hgb 11.8 GM/dL (11.7-16.9) 05/16/18 06:30 Hct 34.0 % (35.4-49) L 05/16/18 06:30 MCV 97.7 fl (80-96) H 05/16/18 06:30 MCHC 34.6 g/dl (32.0-35.9) 05/16/18 06:30 RDW 13.3 % (11.9-15.9) 05/16/18 06:30 Plt Count 176 K/MM3 (134-434) 05/16/18 06:30 MPV 9.2 fl (7.5-11.1) 05/16/18 06:30 CMP Sodium 137 mmol/L (136-145) 05/16/18 06:30 Potassium 3.8 mmol/L (3.5-5.1) 05/16/18 06:30 Chloride 106 mmol/L (98-107) 05/16/18 06:30 Carbon Dioxide 22 mmol/L (21-32) 05/16/18 06:30 Anion Gap 9 MMOL/L (8-16) 05/16/18 06:30 BUN 32 mg/dL (7-18) H 05/16/18 06:30 Creatinine 1.7 mg/dL (0.55-1.3) H 05/16/18 06:30 Creat Clearance w eGFR 39.38 (>60) 05/16/18 06:30 Random Glucose 81 mg/dL (74-106) 05/16/18 06:30 Calcium 7.0 mg/dL (8.5-10.1) L 05/16/18 06:30 Total Bilirubin 0.7 mg/dL (0.2-1) 05/16/18 06:30 AST 15 U/L (15-37) 05/16/18 06:30 ALT 25 U/L (13-61) 05/16/18 06:30 Alkaline Phosphatase 92 U/L (45-117) 05/16/18 06:30 Total Protein 5.0 g/dl (6.4-8.2) L 05/16/18 06:30 Albumin 2.0 g/dl (3.4-5.0) L 05/16/18 06:30 Current Medications Generic Name Dose Route Start Last Admin Trade Name Freq PRN Reason Stop Dose Admin Acetaminophen 650 mg 05/14/18 14:44 05/15/18 20:20 Tylenol - PO 650 mg Q6H PRN Administration FEVER Heparin Sodium (Porcine) 5,000 unit 05/14/18 22:00 05/16/18 14:14 Heparin - SQ 5,000 unit TID RAIN Administration Ceftriaxone Sodium 2 gm/ 100 mls @ 200 mls/hr 05/15/18 10:00 05/16/18 09:01 Dextrose IVPB 200 mls/hr DAILY RAIN Administration Protocol Sodium Chloride 1,000 mls @ 100 mls/hr 05/15/18 12:30 05/16/18 04:00 Normal Saline - IV 05/16/18 22:29 100 mls/hr ASDIR RAIN Administration Microbiology 05/14/18 10:40 Blood - Peripheral Venous Blood Culture - Preliminary NO GROWTH OBTAINED AFTER 48 HOURS, INCUBATION TO CONTINUE FOR 3 DAYS. 05/14/18 10:40 Blood - Peripheral Venous Blood Culture - Preliminary NO GROWTH OBTAINED AFTER 48 HOURS, INCUBATION TO CONTINUE FOR 3 DAYS. 05/15/18 12:15 Urine - Urine Clean Catch Urine Culture - Final NO GROWTH OBTAINED 05/14/18 10:44 Urine - Urine Clean Catch Urine Culture - Final Ct scan: no evidence of abscess or hydronephrosis ASSESSMENT AND PLAN: Patient is a 78-year-old male with a past medical history of BPH, and kidney stones who comes into the emergency department complaining of generalized malaise and fever since lithotripsy this past Thursday. #Sepsis due to having acute UTI on IV rocephin day #3 continue, will monitor, no growth so far, will call Dr. Alejandre since patient has still has bilateral stents possible the removal of stents s/p laser lithotripsy/bilateral stents. #BURAK creatinine 1.5--> 1.8--.1.7 today will continue IVF , and monitor renal function. DVt Px: heparin SQ 5000 units Q8H admit med surg
[2018-05-16] MEDS: ACETAMINOPHEN 325 MG TABLET (FP) PO PRN (21:17)
[2018-05-17] MEDS: HEPARIN NA (PORCINE) 5,000 UNITS/ML 1ML VIAL SQ SCH ×3 (05:46→22:23)
[2018-05-17 07:25] LABS: BASO % 0.5 % (0-2.0); EOS % 2.1 % (0-4.5); HEMOGLOBIN 12.2 GM/dL (11.7-16.9); LYMPH % 10.8 % (8-40); MCH 33.3 pg (25.7-33.7); MCHC 33.9 g/dl (32.0-35.9); MEAN CELL VOLUME 98.1 fl (80-96); MEAN PLT VOLUME 8.7 fl (7.5-11.1); MONO % 10.4 % (3.8-10.2); NEUT % 76.2 % (42.8-82.8); PLATELET COUNT 209 K/MM3 (134-434); RBC 3.67 M/mm3 (4.00-5.60); RDW 13.7 % (11.9-15.9); WHITE BLOOD COUNT 11.8 K/mm3 (4.0-10.0)
[2018-05-17 07:52] LABS: ANION GAP 7 MMOL/L (8-16); BLOOD UREA NITROGEN 34 mg/dL (7-18); CALCIUM 7.6 mg/dL (8.5-10.1); CHLORIDE 108 mmol/L (98-107); CO2 25 mmol/L (21-32); CREATININE 1.7 mg/dL (0.55-1.3); GLUCOSE,RANDOM 94 mg/dL (74-106); MAGNESIUM 2.2 mg/dL (1.8-2.4); PHOSPHOROUS 2.8 mg/dL (2.5-4.9); POTASSIUM 3.9 mmol/L (3.5-5.1); SODIUM 140 mmol/L (136-145)
[2018-05-17] MEDS ORDERED: DEXTROSE 5%-WATER 100 ML IVPB ONE (09:28)
[2018-05-17] MEDS: CEFTRIAXONE 2 GM in DEXTROSE 5%-WATER 100 ML IVPB SCH (09:32)
--- NOTE | 2018-05-17 11:25 | PN ---
Progress Note (short form) - Note Progress Note: feels improved Vital Signs Period Temp Pulse Resp BP Sys/De La Torre Pulse Ox Last 24 Hr 98.1 F-99.2 F 64-106 17-20 110-140/57-69 97 cor-rrr lungs clear abd soft,nt ext no edema CBC, BMP 05/17/18 06:20 05/17/18 06:20 Microbiology 05/14/18 10:40 Blood - Peripheral Venous Blood Culture - Preliminary NO GROWTH OBTAINED AFTER 72 HOURS, INCUBATION TO CONTINUE FOR 2 DAYS. 05/14/18 10:40 Blood - Peripheral Venous Blood Culture - Preliminary NO GROWTH OBTAINED AFTER 72 HOURS, INCUBATION TO CONTINUE FOR 2 DAYS. 05/16/18 10:45 Urine - Urine Clean Catch Urine Culture - Final NO GROWTH OBTAINED 05/15/18 12:15 Urine - Urine Clean Catch Urine Culture - Final NO GROWTH OBTAINED 05/14/18 10:44 Urine - Urine Clean Catch Urine Culture - Final a/p suspect source of fever is urine but the urine has been sterilized by the macrobid ct scan no evidence of abscess or hydronephrosis still has bilateral stents needs urology f/u - ?removal of stents s/p laser lithotripsy/bilateral stents continue ceftriaxone day #3- fever resolved and leukocytosis improving still with BURAK- no improvement noted in renal function awaiting urology f/u plan to switch to po ceftin for another week 500 bid when ready for discharge Problem List - Problems (1) Fever Code(s): R50.9 - FEVER, UNSPECIFIED Qualifiers: Fever type: unspecified Qualified Code(s): R50.9 - Fever, unspecified (2) UTI (urinary tract infection) Code(s): N39.0 - URINARY TRACT INFECTION, SITE NOT SPECIFIED (3) Kidney stone Code(s): N20.0 - CALCULUS OF KIDNEY
[2018-05-17] MEDS: SODIUM CHLORIDE 0.45% 1,000 ML IV SCH (15:10)
--- NOTE | 2018-05-17 18:09 | PN ---
Teaching Attending Note Name of Resident: Jayne Otero ATTENDING PHYSICIAN STATEMENT I saw and evaluated the patient. I reviewed the resident's note and discussed the case with the resident. I agree with the resident's findings and plan as documented. SUBJECTIVE: patient is feeling better with no cute distress. no nausea or vomiting. OBJECTIVE: Vital Signs Temperature 98.7 F 05/17/18 17:23 Pulse Rate 64 05/17/18 17:23 Respiratory Rate 20 05/17/18 17:23 Blood Pressure 118/61 05/17/18 17:23 O2 Sat by Pulse Oximetry (%) 97 05/16/18 21:00 GENERAL: The patient is awake, alert, and fully oriented, in no acute distress. HEAD: Normal with no signs of trauma. EYES: PERRL, extraocular movements intact, sclera anicteric, conjunctiva clear. ENT: Ears normal, oropharynx clear without exudates, moist mucous membranes. NECK: Trachea midline, full range of motion, supple. LUNGS: Breath sounds equal, clear to auscultation bilaterally, no wheezes, no crackles, no accessory muscle use. HEART: Regular rate and rhythm, S1, S2 without murmur, rub or gallop. ABDOMEN: Soft, NT, ND, normoactive bowel sounds, no guarding, no rebound, No cva tenderness. EXTREMITIES: 2+ pulses, warm, well-perfused, no edema. NEUROLOGICAL: Cranial nerves II through XII grossly intact. Normal speech, gait not observed. PSYCH: Normal mood, normal affect. SKIN: Warm, dry, normal turgor, no rashes or lesions noted CBCD WBC 11.8 K/mm3 (4.0-10.0) H 05/17/18 06:20 RBC 3.67 M/mm3 (4.00-5.60) L 05/17/18 06:20 Hgb 12.2 GM/dL (11.7-16.9) 05/17/18 06:20 Hct 36.0 % (35.4-49) 05/17/18 06:20 MCV 98.1 fl (80-96) H 05/17/18 06:20 MCHC 33.9 g/dl (32.0-35.9) 05/17/18 06:20 RDW 13.7 % (11.9-15.9) 05/17/18 06:20 Plt Count 209 K/MM3 (134-434) 05/17/18 06:20 MPV 8.7 fl (7.5-11.1) 05/17/18 06:20 CMP Sodium 140 mmol/L (136-145) 05/17/18 06:20 Potassium 3.9 mmol/L (3.5-5.1) 05/17/18 06:20 Chloride 108 mmol/L (98-107) H 05/17/18 06:20 Carbon Dioxide 25 mmol/L (21-32) 05/17/18 06:20 Anion Gap 7 MMOL/L (8-16) L 05/17/18 06:20 BUN 34 mg/dL (7-18) H 05/17/18 06:20 Creatinine 1.7 mg/dL (0.55-1.3) H 05/17/18 06:20 Creat Clearance w eGFR 39.38 (>60) 05/17/18 06:20 Random Glucose 94 mg/dL (74-106) 05/17/18 06:20 Calcium 7.6 mg/dL (8.5-10.1) L 05/17/18 06:20 Total Bilirubin 0.7 mg/dL (0.2-1) 05/16/18 06:30 AST 15 U/L (15-37) 05/16/18 06:30 ALT 25 U/L (13-61) 05/16/18 06:30 Alkaline Phosphatase 92 U/L (45-117) 05/16/18 06:30 Total Protein 5.0 g/dl (6.4-8.2) L 05/16/18 06:30 Albumin 2.0 g/dl (3.4-5.0) L 05/16/18 06:30 Current Medications Generic Name Dose Route Start Last Admin Trade Name Freq PRN Reason Stop Dose Admin Acetaminophen 650 mg 05/14/18 14:44 05/16/18 21:17 Tylenol - PO 650 mg Q6H PRN Administration FEVER Heparin Sodium (Porcine) 5,000 unit 05/14/18 22:00 05/17/18 13:22 Heparin - SQ 5,000 unit TID RAIN Administration Ceftriaxone Sodium 2 gm/ 100 mls @ 200 mls/hr 05/15/18 10:00 05/17/18 09:32 Dextrose IVPB 200 mls/hr DAILY RAIN Administration Protocol Sodium Chloride 1,000 mls @ 100 mls/hr 05/17/18 14:45 05/17/18 15:10 1/2 Normal Saline IV 05/19/18 00:44 100 mls/hr ASDIR RAIN Administration Home Medications Medication Instructions Recorded Nitrofurantoin Monohyd/M-Cryst 100 mg PO BID 05/14/18 [Nitrofurantoin [place]-Mcr 100 mg] Microbiology 05/14/18 10:40 Blood - Peripheral Venous Blood Culture - Preliminary NO GROWTH OBTAINED AFTER 72 HOURS, INCUBATION TO CONTINUE FOR 2 DAYS. 05/14/18 10:40 Blood - Peripheral Venous Blood Culture - Preliminary NO GROWTH OBTAINED AFTER 72 HOURS, INCUBATION TO CONTINUE FOR 2 DAYS. 05/16/18 10:45 Urine - Urine Clean Catch Urine Culture - Final NO GROWTH OBTAINED 05/15/18 12:15 Urine - Urine Clean Catch Urine Culture - Final NO GROWTH OBTAINED 05/14/18 10:44 Urine - Urine Clean Catch Urine Culture - Final ASSESSMENT AND PLAN: Patient is a 78-year-old male with a past medical history of BPH, and kidney stones who comes into the emergency department complaining of generalized malaise and fever since lithotripsy this past Thursday. #Sepsis due to having acute UTI on IV rocephin day #4 continue, Dr. Alejandre will see the patient in am , s/p laser lithotripsy/bilateral stents. #BURAK creatinine 1.5--> 1.8--.1.7-->1.7 today will continue IVF , and monitor renal function. DVt Px: heparin SQ 5000 units Q8H med surg
--- NOTE | 2018-05-17 18:12 | PN ---
Progress Note (short form) - Note Progress Note: SUBJECTIVE: patient is feeling better with no cute distress. no nausea or vomiting. OBJECTIVE: Vital Signs Temperature 98.7 F 05/17/18 17:23 Pulse Rate 64 05/17/18 17:23 Respiratory Rate 20 05/17/18 17:23 Blood Pressure 118/61 05/17/18 17:23 O2 Sat by Pulse Oximetry (%) 97 05/16/18 21:00 GENERAL: The patient is awake, alert, and fully oriented, in no acute distress. HEAD: Normal with no signs of trauma. EYES: PERRL, extraocular movements intact, sclera anicteric, conjunctiva clear. ENT: Ears normal, oropharynx clear without exudates, moist mucous membranes. NECK: Trachea midline, full range of motion, supple. LUNGS: Breath sounds equal, clear to auscultation bilaterally, no wheezes, no crackles, no accessory muscle use. HEART: Regular rate and rhythm, S1, S2 without murmur, rub or gallop. ABDOMEN: Soft, NT, ND, normoactive bowel sounds, no guarding, no rebound, No cva tenderness. EXTREMITIES: 2+ pulses, warm, well-perfused, no edema. NEUROLOGICAL: Cranial nerves II through XII grossly intact. Normal speech, gait not observed. PSYCH: Normal mood, normal affect. SKIN: Warm, dry, normal turgor, no rashes or lesions noted CBCD WBC 11.8 K/mm3 (4.0-10.0) H 05/17/18 06:20 RBC 3.67 M/mm3 (4.00-5.60) L 05/17/18 06:20 Hgb 12.2 GM/dL (11.7-16.9) 05/17/18 06:20 Hct 36.0 % (35.4-49) 05/17/18 06:20 MCV 98.1 fl (80-96) H 05/17/18 06:20 MCHC 33.9 g/dl (32.0-35.9) 05/17/18 06:20 RDW 13.7 % (11.9-15.9) 05/17/18 06:20 Plt Count 209 K/MM3 (134-434) 05/17/18 06:20 MPV 8.7 fl (7.5-11.1) 05/17/18 06:20 CMP Sodium 140 mmol/L (136-145) 05/17/18 06:20 Potassium 3.9 mmol/L (3.5-5.1) 05/17/18 06:20 Chloride 108 mmol/L (98-107) H 05/17/18 06:20 Carbon Dioxide 25 mmol/L (21-32) 05/17/18 06:20 Anion Gap 7 MMOL/L (8-16) L 05/17/18 06:20 BUN 34 mg/dL (7-18) H 05/17/18 06:20 Creatinine 1.7 mg/dL (0.55-1.3) H 05/17/18 06:20 Creat Clearance w eGFR 39.38 (>60) 05/17/18 06:20 Random Glucose 94 mg/dL (74-106) 05/17/18 06:20 Calcium 7.6 mg/dL (8.5-10.1) L 05/17/18 06:20 Total Bilirubin 0.7 mg/dL (0.2-1) 05/16/18 06:30 AST 15 U/L (15-37) 05/16/18 06:30 ALT 25 U/L (13-61) 05/16/18 06:30 Alkaline Phosphatase 92 U/L (45-117) 05/16/18 06:30 Total Protein 5.0 g/dl (6.4-8.2) L 05/16/18 06:30 Albumin 2.0 g/dl (3.4-5.0) L 05/16/18 06:30 Current Medications Generic Name Dose Route Start Last Admin Trade Name Freq PRN Reason Stop Dose Admin Acetaminophen 650 mg 05/14/18 14:44 05/16/18 21:17 Tylenol - PO 650 mg Q6H PRN Administration FEVER Heparin Sodium (Porcine) 5,000 unit 05/14/18 22:00 05/17/18 13:22 Heparin - SQ 5,000 unit TID RAIN Administration Ceftriaxone Sodium 2 gm/ 100 mls @ 200 mls/hr 05/15/18 10:00 05/17/18 09:32 Dextrose IVPB 200 mls/hr DAILY RAIN Administration Protocol Sodium Chloride 1,000 mls @ 100 mls/hr 05/17/18 14:45 05/17/18 15:10 1/2 Normal Saline IV 05/19/18 00:44 100 mls/hr ASDIR RAIN Administration Home Medications Medication Instructions Recorded Nitrofurantoin Monohyd/M-Cryst 100 mg PO BID 05/14/18 [Nitrofurantoin [place]-Mcr 100 mg] Microbiology 05/14/18 10:40 Blood - Peripheral Venous Blood Culture - Preliminary NO GROWTH OBTAINED AFTER 72 HOURS, INCUBATION TO CONTINUE FOR 2 DAYS. 05/14/18 10:40 Blood - Peripheral Venous Blood Culture - Preliminary NO GROWTH OBTAINED AFTER 72 HOURS, INCUBATION TO CONTINUE FOR 2 DAYS. 05/16/18 10:45 Urine - Urine Clean Catch Urine Culture - Final NO GROWTH OBTAINED 05/15/18 12:15 Urine - Urine Clean Catch Urine Culture - Final NO GROWTH OBTAINED 05/14/18 10:44 Urine - Urine Clean Catch Urine Culture - Final ASSESSMENT AND PLAN: Patient is a 78-year-old male with a past medical history of BPH, and kidney stones who comes into the emergency department complaining of generalized malaise and fever since lithotripsy this past Thursday. #Sepsis due to having acute UTI on IV rocephin day #4 continue, Dr. Alejandre will see the patient in am , s/p laser lithotripsy/bilateral stents. #BURAK creatinine 1.5--> 1.8--.1.7-->1.7 today will continue IVF , and monitor renal function. DVt Px: heparin SQ 5000 units Q8H med surg Visit type - Emergency Visit Emergency Visit: Yes ED Registration Date: 05/14/18 Care time: The patient presented to the Emergency Department on the above date and was hospitalized for further evaluation of their emergent condition. - New Patient This patient is new to me today: No - Critical Care Critical Care patient: No - Discharge Referral Referred to [facility] Med P.C.: No
[2018-05-18] MEDS: SODIUM CHLORIDE 0.45% 1,000 ML IV SCH (01:00)
[2018-05-18] MEDS: HEPARIN NA (PORCINE) 5,000 UNITS/ML 1ML VIAL SQ SCH (05:58)
--- NOTE | 2018-05-18 07:20 | CONSULT ---
Consult - text type - Consultation Consultation Note: CC; uti s/p eswl hpi; patient is s/p bilateral stent for obstructing stones and 8 days s/p left eswl. patient developed a fever post eswl with leukocytosis. patient is currently afebrile and his wbc is normalizing. CT scan shows no evidence of hydro with good stent position bilaterally.. PE vss; afeb abd-soft nontender; no CVAT bilaterally imp uti bilateral ureteral obstruction s/p bilateral ureteral stents plan continue antibiotics and follow renal function
[2018-05-18 07:36] LABS: BASO % 0.5 % (0-2.0); EOS % 2.5 % (0-4.5); HEMATOCRIT 31.3 % (35.4-49); HEMOGLOBIN 10.8 GM/dL (11.7-16.9); LYMPH % 12.8 % (8-40); MCH 33.4 pg (25.7-33.7); MCHC 34.5 g/dl (32.0-35.9); MONO % 12.5 % (3.8-10.2); NEUT % 71.7 % (42.8-82.8); PLATELET COUNT 229 K/MM3 (134-434); RBC 3.23 M/mm3 (4.00-5.60); RDW 13.5 % (11.9-15.9); WHITE BLOOD COUNT 10.1 K/mm3 (4.0-10.0)
[2018-05-18 08:22] LABS: ALBUMIN 1.9 g/dl (3.4-5.0); ALK PHOS 123 U/L (45-117); ANION GAP 8 MMOL/L (8-16); BILIRUBIN,TOTAL 0.6 mg/dL (0.2-1); BLOOD UREA NITROGEN 35 mg/dL (7-18); CHLORIDE 108 mmol/L (98-107); CO2 24 mmol/L (21-32); CREATININE 1.6 mg/dL (0.55-1.3); GLUCOSE,RANDOM 90 mg/dL (74-106); MAGNESIUM 1.9 mg/dL (1.8-2.4); PHOSPHOROUS 3.1 mg/dL (2.5-4.9); POTASSIUM 3.9 mmol/L (3.5-5.1); SGOT/AST 42 U/L (15-37); SGPT/ALT 50 U/L (13-61); SODIUM 140 mmol/L (136-145); TOT PROT 4.9 g/dl (6.4-8.2)
[2018-05-18] MEDS ORDERED: DEXTROSE 5%-WATER 100 ML IVPB ONE (10:33)
[2018-05-18] MEDS: CEFTRIAXONE 2 GM in DEXTROSE 5%-WATER 100 ML IVPB SCH (10:39)
--- NOTE | 2018-05-18 10:53 | DS ---
Physical Exam: SUBJECTIVE: Patient seen and examined at bedside. No acute events overnight. Denies subjective fevers or chills. OBJECTIVE: Vital Signs Period Temp Pulse Resp BP Sys/De La Torre Pulse Ox Last 24 Hr 98.1 F-98.7 F 62-72 18-20 115-118/52-62 97 PHYSICAL EXAM GENERAL: AAOx3, NAD HEAD: Atraumatic/Normocephalic EYES: EOMI Sclera Clear ENT: MMM NECK: Trachea midline, full range of motion, supple. LUNGS: CTA B/L HEART: Regular rate and rhythm, S1, S2 without murmur, rub or gallop. ABDOMEN: NO CVA tenderness. Nondistended Nontender EXTREMITIES: No CCE DP 2+ NEUROLOGICAL: No neuro deficits appreciated PSYCH: Normal mood, normal affect. SKIN: No rashes or lesions appreciated LABS Laboratory Results - last 24 hr 05/18/18 05/18/18 05:30 05:30 WBC 10.1 H RBC 3.23 L Hgb 10.8 L Hct 31.3 L MCV 97.0 H MCH 33.4 MCHC 34.5 RDW 13.5 Plt Count 229 MPV 9.0 Absolute Neuts (auto) 7.3 Neutrophils % 71.7 Lymphocytes % 12.8 Monocytes % 12.5 H Eosinophils % 2.5 Basophils % 0.5 Nucleated RBC % 0 Sodium 140 Potassium 3.9 Chloride 108 H Carbon Dioxide 24 Anion Gap 8 BUN 35 H Creatinine 1.6 H Creat Clearance w eGFR 42.24 Random Glucose 90 Calcium 7.0 L Phosphorus 3.1 Magnesium 1.9 Total Bilirubin 0.6 AST 42 H ALT 50 Alkaline Phosphatase 123 H Total Protein 4.9 L Albumin 1.9 L HOSPITAL COURSE: Date of Admission:05/14/18 pt is a 78 y/o gentleman with a past medical history of bph, nephrolithiasis s/ p stent who was admitted to the [facility] for sepsis 2/2 complicated UTI. Pt initially had a WBC count of 16.5 and a Tmax of 102.7 Pt was placed on Rocephin and I.V fluids. Blood and urine cultures were both negative. Urology was consulted. Pt d/c'ed on Vantin 200 BID for 7 days and given Nephrology and Urology referrals for follow up. Date of Discharge: 05/18/18 Minutes to complete discharge: 35 Discharge Summary Reason For Visit: ACUTE KIDNEY DISEASE,COMMON COLD Current Active Problems BURAK (acute kidney injury) (Acute) UTI (urinary tract infection) (Acute) Condition: Improved - Instructions Diet, Activity, Other Instructions: You presented to the hospital due to a urinary tract infection. You were treated with antibiotics and Intravenous fluids. It is important for you to follow up with your Urologist, Dr Alejandre this week ( Apr) Please follow up with the Infectious Disease Doctor, Dr Harvey this week as well. Please follow up with Dr Swain. [employer] App[employer]ice, in 2 weeks since your kidney function was abnormal. You will be sent home on an antibiotic Cefpodoxime 200 MG TWICE per day x 1 week , please complete the antibiotic. Please return the the Emergency department if you experience any fever, chills, chest pain, nausea, vomiting or any other symptoms. Referrals: Pradeep Harvey MD [Staff Physician] - 1 Week Rishabh Alejandre MD [Staff Physician] - 1 Week Wilver Swain MD [Staff Physician] - 2 Weeks Disposition: HOME - Home Medications Comprehensive Discharge Medication List: Ambulatory Orders Nitrofurantoin Monohyd/M-Cryst [Nitrofurantoin [place]-Mcr 100 mg] 100 mg PO BID Cefpodoxime Proxetil [Vantin -] 200 mg PO BID #14 tablet 05/18/18 This patient is new to me today: Yes Date on this admission: 05/18/18 Emergency Visit: Yes ED Registration Date: 05/14/18 Care time: The patient presented to the Emergency Department on the above date and was hospitalized for further evaluation of their emergent condition. Critical Care patient: No - Discharge Referral Referred to [facility] Med [facility] No
[2018-05-18 11:00] VITALS: BP 113/67; PULSE 60; TEMP 97.5
--- NOTE | 2018-05-18 15:14 | PN ---
Teaching Attending Note Name of Resident: Brodie Villanueva ATTENDING PHYSICIAN STATEMENT I saw and evaluated the patient. I reviewed the resident's note and discussed the case with the resident. I agree with the resident's findings and plan as documented. SUBJECTIVE: Patient is comfortable with no acute distress, No further fever overnight. OBJECTIVE: Vital Signs Temperature 97.5 F L 05/18/18 10:00 Pulse Rate 60 05/18/18 10:00 Respiratory Rate 18 05/18/18 10:00 Blood Pressure 113/67 05/18/18 10:00 O2 Sat by Pulse Oximetry (%) 97 05/17/18 21:00 GENERAL: The patient is awake, alert, and fully oriented, in no acute distress. HEAD: Normal with no signs of trauma. EYES: PERRL, extraocular movements intact, sclera anicteric, conjunctiva clear. ENT: Ears normal, oropharynx clear without exudates, moist mucous membranes. NECK: Trachea midline, full range of motion, supple. LUNGS: Breath sounds equal, clear to auscultation bilaterally, no wheezes, no crackles, no accessory muscle use. HEART: Regular rate and rhythm, S1, S2 without murmur, rub or gallop. ABDOMEN: Soft, NT, ND, normoactive bowel sounds, no guarding, no rebound, No cva tenderness. EXTREMITIES: 2+ pulses, warm, well-perfused, no edema. NEUROLOGICAL: Cranial nerves II through XII grossly intact. Normal speech, gait not observed. PSYCH: Normal mood, normal affect. SKIN: Warm, dry, normal turgor, no rashes or lesions noted CBCD WBC 10.1 K/mm3 (4.0-10.0) H 05/18/18 05:30 RBC 3.23 M/mm3 (4.00-5.60) L 05/18/18 05:30 Hgb 10.8 GM/dL (11.7-16.9) L 05/18/18 05:30 Hct 31.3 % (35.4-49) L 05/18/18 05:30 MCV 97.0 fl (80-96) H 05/18/18 05:30 MCHC 34.5 g/dl (32.0-35.9) 05/18/18 05:30 RDW 13.5 % (11.9-15.9) 05/18/18 05:30 Plt Count 229 K/MM3 (134-434) 05/18/18 05:30 MPV 9.0 fl (7.5-11.1) 05/18/18 05:30 CMP Sodium 140 mmol/L (136-145) 05/18/18 05:30 Potassium 3.9 mmol/L (3.5-5.1) 05/18/18 05:30 Chloride 108 mmol/L (98-107) H 05/18/18 05:30 Carbon Dioxide 24 mmol/L (21-32) 05/18/18 05:30 Anion Gap 8 MMOL/L (8-16) 05/18/18 05:30 BUN 35 mg/dL (7-18) H 05/18/18 05:30 Creatinine 1.6 mg/dL (0.55-1.3) H 05/18/18 05:30 Creat Clearance w eGFR 42.24 (>60) 05/18/18 05:30 Random Glucose 90 mg/dL (74-106) 05/18/18 05:30 Calcium 7.0 mg/dL (8.5-10.1) L 05/18/18 05:30 Total Bilirubin 0.6 mg/dL (0.2-1) 05/18/18 05:30 AST 42 U/L (15-37) H 05/18/18 05:30 ALT 50 U/L (13-61) 05/18/18 05:30 Alkaline Phosphatase 123 U/L (45-117) H 05/18/18 05:30 Total Protein 4.9 g/dl (6.4-8.2) L 05/18/18 05:30 Albumin 1.9 g/dl (3.4-5.0) L 05/18/18 05:30 Home Medications Medication Instructions Recorded Nitrofurantoin Monohyd/M-Cryst 100 mg PO BID 05/14/18 [Nitrofurantoin [place]-Mcr 100 mg] Cefpodoxime Proxetil [Vantin -] 200 mg PO BID #14 tablet 05/18/18 ASSESSMENT AND PLAN: Patient is a 78-year-old male with a past medical history of BPH, and kidney stones who comes into the emergency department complaining of generalized malaise and fever since lithotripsy this past Thursday. #Sepsis due to having acute UTI s/p laser lithotripsy/bilateral stents, s/p IV rocephin day #4 , will continue with Vantin 200mg bid x 7 days. Patient seen by Dr. Alejandre , will follow up with him as an outpatient for further w/u . #BURAK creatinine 1.5--> 1.8--.1.7-->1.7--->1.6 Patient will follow with Dr. Lazar as an outpatient . discharge patient home.
== END 2018-05-18 11:46 | disposition home or self-care (01) | DRG 872 ==
LOC: JER 09:53 → JERBED 13:45 → J8W 20:04
PROVIDERS: ADMIT Internal Medicine; ATTEND Internal Medicine
DX: A41.89 Other specified sepsis (principal); N17.9 Acute kidney failure, unspecified; N39.0 Urinary tract infection, site not specified; N40.0 Benign prostatic hyperplasia without lower urinary tract symptoms; R50.9 Fever, unspecified; N20.0 Calculus of kidney
CPT/HCPCS: 36415; 71045-TC-FY; 74176; 80048; 80053; 81003; 81015; 82803; 83605; 83735; 84100; 85025; 85610; 85730; 87040; 87086; 87804; 93005; 93010; 99284-25; J0131; J1644; J7030

== ENCOUNTER 2018-05-25 08:43 | Inpatient (IN) | payer OTHER ==
[2018-05-25] MEDS ORDERED: ACETAMINOPHEN 1000 MG/100 ML VIAL (NON FORMULARY) IVPB ONE (08:57)
[2018-05-25] MEDS ORDERED: SODIUM CHLORIDE 0.9% 1000 ML INFUS.BAG IV ONE ×2 (08:57→14:09)
--- NOTE | 2018-05-25 09:20 | PDOC ---
History of Present Illness - General Chief Complaint: Cold Symptoms Stated Complaint: FLU Symptoms Time Seen by Provider: 05/25/18 08:47 History Source: Patient Exam Limitations: No Limitations - History of Present Illness Initial Comments: 05/25/18 09:23 The patient is a 78M with a PMH of BPH and nephrolithiasis (s/p bilateral stents ) who presents to the ER for acute onset chills and urgency. The patient states that he developed fever and chills last night. Today, he had worsening urgency. The patient denies dysuria, hematuria, discharge. He denies CP, SOB, abdominal pain, nausea, vomiting. Past History - Past Medical History Allergies/Adverse Reactions: Allergies Allergy/AdvReac Type Severity Reaction Status Date / Time No Known Drug Allergies Allergy Verified 05/25/18 08:50 Home Medications: Ambulatory Orders Nitrofurantoin Monohyd/M-Cryst [Nitrofurantoin [place]-Mcr 100 mg] 100 mg PO BID Colchicine [Colcrys -] 0.6 mg PO BID 05/25/18 Indomethacin [Indocin -] 50 mg PO BID 05/25/18 Anemia: No Asthma: No Cancer: Yes (COLON CA, status post resection and chemo ) Cardiac Disorders: No CVA: No COPD: No CHF: No Dementia: No Diabetes: No GI Disorders: No Disorders: Yes (KIDNEY STONES W/ LITHOTRIPSY, BPH) HTN: No Hypercholesterolemia: No Liver Disease: No Seizures: No Thyroid Disease: No - Surgical History Abdominal Surgery: Yes (COLON RESECTION) Appendectomy: Yes Cardiac Surgery: No Cholecystectomy: No Lung Surgery: No Neurologic Surgery: No Orthopedic Surgery: No - Immunization History Immunization Up to Date: Yes - Suicide/Smoking/Psychosocial Hx Smoking Status: No Smoking History: Current every day smoker Have you smoked in the past 12 months: No Number of Cigarettes Smoked Daily: 0 Information on smoking cessation initiated: No Hx Alcohol Use: No Drug/Substance Use Hx: No Substance Use Type: None Hx Substance Use Treatment: No Review of Systems - Review of Systems Able to Perform ROS?: Yes Comments:: 05/25/18 10:10 GENERAL/CONSTITUTIONAL: Positive for fever or chills. No weakness. HEAD, EYES, EARS, NOSE AND THROAT: No change in vision. No ear pain or discharge. No sore throat. CARDIOVASCULAR: No chest pain, palpitations, or lightheadedness. RESPIRATORY: No cough, wheezing, shortness of breath, or hemoptysis. GASTROINTESTINAL: No nausea, vomiting, diarrhea, constipation, or abdominal pain. GENITOURINARY: Positive for urgency. No dysuria, frequency, hematuria, or change in urination. MUSCULOSKELETAL: No joint or muscle swelling or pain. No neck or back pain. SKIN: No rash or lesions. NEUROLOGIC: No headache, numbness, tingling, focal weakness, loss of consciousness, or change in strength/sensation. Is the patient limited Irish proficient: No *Physical Exam - Vital Signs Last Vital Signs Temp Pulse Resp BP Pulse Ox 100.4 F H 100 H 16 132/84 100 05/25/18 08:47 05/25/18 08:47 05/25/18 08:47 05/25/18 08:47 05/25/18 08:47 - Physical Exam Comments: 05/25/18 10:10 GENERAL: Well developed, well nourished. Awake and alert. No acute distress. HEENT: Normocephalic, atraumatic. Hearing grossly normal. Moist mucous membranes. PERRLA, EOMI. No conjunctival pallor. NECK: Supple. Full ROM. No JVD. CARDIOVASCULAR: Regular rate and rhythm. No murmurs, rubs, or gallops. PULMONARY: No evidence of respiratory distress. Lungs clear to auscultation bilaterally. No wheezing, rales or rhonchi. ABDOMINAL: Soft. Non-tender. Non-distended. No rebound or guarding. GENITOURINARY: No CVA tenderness bilaterally. MUSCULOSKELETAL: Normal range of motion at all joints. No bony deformities or tenderness. EXTREMITIES: No cyanosis. No clubbing. No edema. No calf tenderness or swelling. SKIN: Warm and dry. Normal capillary refill. No rashes. No jaundice. NEUROLOGICAL: Alert, awake, appropriate. Cranial nerves 2-12 intact. Normal speech. Gait is normal without ataxia. PSYCHIATRIC: Cooperative. Good eye contact. Appropriate mood and affect. Moderate Sedation - Procedure Monitoring Vital Signs: Procedure Monitoring Vital Signs Temperature 100.4 F H 05/25/18 08:47 Pulse Rate 100 H 05/25/18 08:47 Respiratory Rate 16 05/25/18 08:47 Blood Pressure 132/84 05/25/18 08:47 O2 Sat by Pulse Oximetry (%) 100 05/25/18 08:47 ED Treatment Course - LABORATORY CBC & Chemistry Diagram: 05/25/18 09:00 05/25/18 09:00 - RADIOLOGY Radiology Studies Ordered: Category Date Time Status CHEST X-RAY PORTABLE* [RAD] Stat Radiology 05/25/18 08:56 Ordered - Medications Given in the ED: ED Medications Discontinued Medications Generic Name Dose Route Start Last Admin Trade Name Rubio PRN Reason Stop Dose Admin Acetaminophen 1,000 mg 05/25/18 08:57 05/25/18 09:14 Ofirmev Injection - IVPB 05/25/18 08:58 1,000 mg ONCE ONE Administration Sodium Chloride 1,000 ml 05/25/18 08:57 05/25/18 09:14 Normal Saline - IV 05/25/18 08:58 1,000 ml ONCE ONE Administration Medical Decision Making - Medical Decision Making 05/25/18 10:12 The patient is a 78M with a PMH of BPH and nephrolithiasis (w/ bilateral stents ) who presents with fever, chills, and urinary urgency, concerning for recurrent UTI vs septic stone. Will obtain labs and give abx. Septic protocol being followed because of rectal temp of 103.5 w/ tachycardia. Giving broad spectrum abx as pt was recently discharged 1 week ago. Giving tylenol for fever control. 05/25/18 13:09 Case d/w Dr. Alejandre who agrees that stents are in place w/o hydro. CBC shows WBC of 35. Cr 2.0. Will continue hydration and observe closely. Hospitalist microblogged for admission. 05/25/18 13:39 I have endorsed the patient to Dr. Orlando for admission. *DC/Admit/Observation/Transfer Diagnosis at time of Disposition: UTI (urinary tract infection) Qualifiers: Urinary tract infection type: site unspecified Hematuria presence: without hematuria Qualified Code(s): N39.0 - Urinary tract infection, site not specified - Discharge Dispostion Condition at time of disposition: Guarded Decision to Admit order: Yes - Referrals Referrals: Eric Morales MD [Primary Care Provider] - - Patient Instructions - Post Discharge Activity
[2018-05-25] MEDS ORDERED: PIPERACILLIN/TAZOB 4.5 GM 4.5 GM in DEXTROSE 5%-WATER 100 ML IVPB ONE (09:21)
[2018-05-25] MEDS ORDERED: VANCOMYCIN 1,000 MG in DEXTROSE 5%-WATER - 250 ML IVPB ONE (09:21)
[2018-05-25 09:23] LABS: BASO % 0.3 % (0-2.0); EOS % 1.3 % (0-4.5); HEMATOCRIT 36.1 % (35.4-49); HEMOGLOBIN 12.5 GM/dL (11.7-16.9); LYMPH % 1.2 % (8-40); MCH 33.4 pg (25.7-33.7); MCHC 34.5 g/dl (32.0-35.9); MEAN CELL VOLUME 96.9 fl (80-96); MEAN PLT VOLUME 7.9 fl (7.5-11.1); MONO % 4.4 % (3.8-10.2); NEUT % 92.8 % (42.8-82.8); PLATELET COUNT 379 K/MM3 (134-434); RBC 3.73 M/mm3 (4.00-5.60); RDW 14.1 % (11.9-15.9); VENOUS PC02 33.1 mmHg (38-52); VENOUS PH 7.46 (7.32-7.42); VENOUS PO2 50.4 mmHg (28-48)
[2018-05-25] MEDS ORDERED: VANCOMYCIN 1 GRAM (PRE-DOCKED) 1,000 MG/250 ML BAG IVPB ONE (09:27)
[2018-05-25] MEDS ORDERED: PIPERACILLIN/TAZOB 4.5 GM 4.5 GM/100 ML BAG IVPB ONE (09:27)
[2018-05-25 09:50] LABS: INR 1.54 (0.83-1.09); PROTHROMBIN TIME (PATIENT) 18.3 SEC (9.7-13.0)
[2018-05-25 09:53] LABS: ACTIVATED PTT 30.5 SECONDS (25.2-36.5)
[2018-05-25 09:58] LABS: URINE APPEARANCE SLCLOUDY; URINE BILIRUBIN NEGATIVE (<2.0 mg/dL); URINE COLOR YELLOW; URINE GLUCOSE (UA) NEGATIVE (NEGATIVE); URINE KETONE NEGATIVE (NEGATIVE); URINE LEUK ESTERASE 2+ (NEGATIVE); URINE NITRITE NEGATIVE (NEGATIVE); URINE PROTEIN 2+ (NEGATIVE); URINE UROBILINOGEN NEGATIVE mg/dL (0.2-1.0)
[2018-05-25 10:09] LABS: ALBUMIN 2.4 g/dl (3.4-5.0); ALK PHOS 136 U/L (45-117); ANION GAP 11 MMOL/L (8-16); BILIRUBIN,TOTAL 0.6 mg/dL (0.2-1); BLOOD UREA NITROGEN 36 mg/dL (7-18); CHLORIDE 103 mmol/L (98-107); CO2 24 mmol/L (21-32); GLUCOSE,RANDOM 99 mg/dL (74-106); POTASSIUM 4.4 mmol/L (3.5-5.1); SGOT/AST 17 U/L (15-37); SGPT/ALT 56 U/L (13-61); SODIUM 138 mmol/L (136-145); TOT PROT 6.2 g/dl (6.4-8.2)
[2018-05-25 10:13] LABS: EPI CELLS RARE /HPF (FEW); URINE HYALINE CAST 3 /lpf; URINE MUCUS RARE
--- NOTE | 2018-05-25 10:50 | PDOC ---
Attending Attestation - Resident Resident Name: Singh Knig - ED Attending Attestation I have performed the following: I have examined & evaluated the patient, The case was reviewed & discussed with the resident, I agree w/resident's findings & plan - HPI HPI: 05/25/18 10:44 78-year-old male with history of obstructive nephrolithiasis status post bilateral stents treated with antibiotics for superimposed infection now presents with fevers and chills since last night, generalized weakness this morning. Otherwise is asymptomatic and without complaints of pain or dysuria or hematuria. - Physicial Exam PE: 05/25/18 10:45 Afebrile, tachycardic, blood pressure is otherwise normal Patient is well-appearing and conversant Heart is regular tachycardia, lungs are clear Abdomen benign, no CVA tenderness - Medical Decision Making 05/25/18 10:45 78-year-old male with indwelling ureteral stents presents with sepsis, otherwise asymptomatic as far as localizing the etiology. No evidence for respiratory infectious process, concerning for bacteremia versus infected hardware. Prior cultures showed no growth Sepsis protocol initiated Given recent hospitalization and the fact that he is currently on oral meds, will give broad-spectrum antibiotics Imaging to confirm stent placement and rule out any collection Admission, urology consult Heart Score/ECG Review #1 ECG reviewed & interpreted by me at: 09:11 General ECG Interpretation: Sinus Rhythm (APC noted), Normal Rate (90), Normal Intervals (qtc 464), No acute ischemic changes
[2018-05-25 11:54] LABS: ANISOCYTOSIS 1+; MACROCYTOSIS 1+; PLATELET ESTIMATE NORMAL
[2018-05-25] MEDS ORDERED: ACETAMINOPHEN 325 MG TABLET (FP) PO PRN (14:21)
[2018-05-25] MEDS ORDERED: ONDANSETRON 4 MG/2 ML VIAL IVPB PRN (14:22)
--- NOTE | 2018-05-25 14:38 | HP ---
CHIEF COMPLAINT: fever/ chils PCP: dr montanez HISTORY OF PRESENT ILLNESS: 78 y/o male with PMH of nephrolethiasis and uti who was recently Dc from the hospital for uti now came back for fever and chills which started this morning. Pt states that he was dc from hospital last week and was taking his antibiotics ventin as prescribed but this morning he has fever with chills. Pt dont remember the temp reading. Pt also states that he felt nauseated but has no vomiting. Denies pain in abdomen, pain in back, burning micturation. Denies diarrhoea and abdominal distension. Pt also states that for nephrolithiasis he got b/l ureteral stunt a month ago and this is his second episode of uti after since he got stents Denies chest pain, so, cough, swelling in any part of body, denies back pain, denies numbness or weakness in any part of body. ER already discussed the case with urologist ER course was notable for: (1)cbc, cmp, ua, urine culture, blood culture CT abdomen Recent Travel: no PAST MEDICAL HISTORY: bph PAST SURGICAL HISTORY: b/l ureteral stent placement in March liththursday, 05/10 Social History: Smoking: denies Alcohol: denies Drugs: denies Family History: non-contributory Allergies No Known Drug Allergies Allergy (Verified 05/25/18 08:50) HOME MEDICATIONS: Home Medications Medication Instructions Recorded Nitrofurantoin Monohyd/M-Cryst 100 mg PO BID 05/14/18 [Nitrofurantoin [place]-Mcr 100 mg] Colchicine [Colcrys -] 0.6 mg PO BID 05/25/18 Indomethacin [Indocin -] 50 mg PO BID 05/25/18 REVIEW OF SYSTEMS CONSTITUTIONAL: Absent: fever, chills, diaphoresis, generalized weakness, malaise, loss of appetite, weight change HEENT: Absent: rhinorrhea, nasal congestion, throat pain, throat swelling, difficulty swallowing, mouth swelling, ear pain, eye pain, visual changes CARDIOVASCULAR: Absent: chest pain, syncope, palpitations, irregular heart rate, lightheadedness , peripheral edema RESPIRATORY: Absent: cough, shortness of breath, dyspnea with exertion, orthopnea, wheezing, stridor, hemoptysis GASTROINTESTINAL: Absent: abdominal pain, abdominal distension, nausea, vomiting, diarrhea, constipation, melena, hematochezia GENITOURINARY: Absent: dysuria, frequency, urgency, hesitancy, hematuria, flank pain, genital pain MUSCULOSKELETAL: Absent: myalgia, arthralgia, joint swelling, back pain, neck pain SKIN: Absent: rash, itching, pallor HEMATOLOGIC/IMMUNOLOGIC: Absent: easy bleeding, easy bruising, lymphadenopathy, frequent infections ENDOCRINE: Absent: unexplained weight gain, unexplained weight loss, heat intolerance, cold intolerance NEUROLOGIC: Absent: headache, focal weakness or paresthesias, dizziness, unsteady gait, seizure, mental status changes, bladder or bowel incontinence PSYCHIATRIC: Absent: anxiety, depression, suicidal or homicidal ideation, hallucinations. PHYSICAL EXAMINATION Vital Signs - 24 hr 05/25/18 08:47 Temperature 100.4 F H Pulse Rate 100 H Respiratory 16 Rate Blood Pressure 132/84 O2 Sat by Pulse 100 Oximetry (%) GENERAL: Awake, alert, and fully oriented, in no acute distress. HEAD: Normal with no signs of trauma. EARS, NOSE, THROAT: oropharynx clear without exudates. dry mucous membranes. NECK: Normal range of motion, supple without lymphadenopathy, JVD, or masses. LUNGS: Breath sounds equal, clear to auscultation bilaterally. No wheezes, and no crackles. No accessory muscle use. HEART: Regular rate and rhythm, normal S1 and S2 without murmur, rub or gallop. ABDOMEN: Soft, nontender, not distended, normoactive bowel sounds, no guarding, no rebound, no masses. MUSCULOSKELETAL: Normal range of motion at all joints. No bony deformities or tenderness. No CVA tenderness. UPPER EXTREMITIES: 2+ pulses, warm, well-perfused. No cyanosis. No clubbing. No peripheral edema. LOWER EXTREMITIES: warm, well-perfused. No calf tenderness. No peripheral edema. NEUROLOGICAL: Normal speech. Normal gait. PSYCHIATRIC: Cooperative. Good eye contact. SKIN: Warm, dry, Laboratory Results - last 24 hr 05/25/18 05/25/18 05/25/18 09:00 09:00 09:00 WBC 35.0 H* RBC 3.73 L Hgb 12.5 Hct 36.1 D MCV 96.9 H MCH 33.4 MCHC 34.5 RDW 14.1 Plt Count 379 D MPV 7.9 D Absolute Neuts (auto) 32.5 H Neutrophils % 92.8 H D Neutrophils % (Manual) 86.7 H Band Neutrophils % 4.1 Lymphocytes % 1.2 L D Lymphocytes % (Manual) 1.0 L Monocytes % 4.4 Monocytes % (Manual) 4 Eosinophils % 1.3 Eosinophils % (Manual) 2.1 Basophils % 0.3 Basophils % (Manual) 0.0 Myelocytes % (Man) 0 Promyelocytes % (Man) 1 Blast Cells % (Manual) 0 Nucleated RBC % 0 Metamyelocytes 0 Hypochromia 0 Platelet Estimate Normal Polychromasia 1+ Poikilocytosis 0 Anisocytosis 1+ Microcytosis 0 Macrocytosis 1+ PT with INR 18.30 H INR 1.54 H PTT (Actin FS) 30.5 VBG pH 7.46 H POC VBG pCO2 33.1 L D POC VBG pO2 50.4 H D Mixed VBG HCO3 23.3 Sodium Potassium Chloride Carbon Dioxide Anion Gap BUN Creatinine Creat Clearance w eGFR Random Glucose Lactic Acid Calcium Total Bilirubin AST ALT Alkaline Phosphatase Troponin I Total Protein Albumin Urine Color Urine Appearance Urine pH Ur Specific [place] Urine Protein Urine Glucose (UA) Urine Ketones Urine Blood Urine Nitrite Urine Bilirubin Urine Urobilinogen Ur Leukocyte Esterase Urine WBC (Auto) Urine RBC (Auto) Ur Epithelial Cells Hyaline Casts Urine Mucus 05/25/18 05/25/18 05/25/18 09:00 09:00 09:30 WBC RBC Hgb Hct MCV MCH MCHC RDW Plt Count MPV Absolute Neuts (auto) Neutrophils % Neutrophils % (Manual) Band Neutrophils % Lymphocytes % Lymphocytes % (Manual) Monocytes % Monocytes % (Manual) Eosinophils % Eosinophils % (Manual) Basophils % Basophils % (Manual) Myelocytes % (Man) Promyelocytes % (Man) Blast Cells % (Manual) Nucleated RBC % Metamyelocytes Hypochromia Platelet Estimate Polychromasia Poikilocytosis Anisocytosis Microcytosis Macrocytosis PT with INR INR PTT (Actin FS) VBG pH POC VBG pCO2 POC VBG pO2 Mixed VBG HCO3 Sodium 138 Potassium 4.4 Chloride 103 Carbon Dioxide 24 Anion Gap 11 BUN 36 H Creatinine 2.0 H Creat Clearance w eGFR 32.65 Random Glucose 99 Lactic Acid 2.0 Calcium 8.0 L Total Bilirubin 0.6 AST 17 ALT 56 Alkaline Phosphatase 136 H Troponin I < 0.02 Total Protein 6.2 L Albumin 2.4 L Urine Color Yellow Urine Appearance Slcloudy Urine pH 5.0 Ur Specific [place] 1.012 Urine Protein 2+ H Urine Glucose (UA) Negative Urine Ketones Negative Urine Blood 2+ H Urine Nitrite Negative Urine Bilirubin Negative Urine Urobilinogen Negative Ur Leukocyte Esterase 2+ H Urine WBC (Auto) 55 Urine RBC (Auto) 17 Ur Epithelial Cells Rare Hyaline Casts 3 Urine Mucus Rare 05/25/18 13:00 WBC RBC Hgb Hct MCV MCH MCHC RDW Plt Count MPV Absolute Neuts (auto) Neutrophils % Neutrophils % (Manual) Band Neutrophils % Lymphocytes % Lymphocytes % (Manual) Monocytes % Monocytes % (Manual) Eosinophils % Eosinophils % (Manual) Basophils % Basophils % (Manual) Myelocytes % (Man) Promyelocytes % (Man) Blast Cells % (Manual) Nucleated RBC % Metamyelocytes Hypochromia Platelet Estimate Polychromasia Poikilocytosis Anisocytosis Microcytosis Macrocytosis PT with INR INR PTT (Actin FS) VBG pH POC VBG pCO2 POC VBG pO2 Mixed VBG HCO3 Sodium Potassium Chloride Carbon Dioxide Anion Gap BUN Creatinine Creat Clearance w eGFR Random Glucose Lactic Acid 1.3 Calcium Total Bilirubin AST ALT Alkaline Phosphatase Troponin I Total Protein Albumin Urine Color Urine Appearance Urine pH Ur Specific [place] Urine Protein Urine Glucose (UA) Urine Ketones Urine Blood Urine Nitrite Urine Bilirubin Urine Urobilinogen Ur Leukocyte Esterase Urine WBC (Auto) Urine RBC (Auto) Ur Epithelial Cells Hyaline Casts Urine Mucus ASSESSMENT/PLAN: The patient the 78-year-old male with a past medical history of BPH, and kidney stones who comes into the emergency department complaining of generalized malaise and fever . #urosepsis - Ua reviewed. UC pending, BC pending - got vanco and zosyn in hospital - completed a outpatient course of ventin - IV fluid got 2L in er. Start him on 125ml/hr - - IV antibiotics zosyn. c - ID consult dr cervantes - urology consult - monitor vitals - monitr intake/ output - maintain urine output of 0.5 to 1ml/kg/hr #BURAK cr 2.0 - I V fluid - avoid nephrotoxic drugs - CT didn't show any hydro or urine retention -If cr dose not get better wit fluid consider renal workup - #FEN -NS 125 ml/hr -repeat in am -regular diet #prophy -heparin SQ 5000 units Q8H #dispo -admit med surg Visit type - Emergency Visit Emergency Visit: Yes ED Registration Date: 05/25/18 Care time: The patient presented to the Emergency Department on the above date and was hospitalized for further evaluation of their emergent condition. - New Patient This patient is new to me today: No - Critical Care Critical Care patient: No
[2018-05-25] MEDS: SODIUM CHLORIDE 1,000 ML IV SCH ×2 (16:24→22:00)
--- NOTE | 2018-05-25 16:54 | HP ---
Admitting History and Physical - Primary Care Physician PCP: Eric Morales - Admission Chief Complaint: I felt bad History of Present Illness: Mr Monterroso is a very pleasant 78 year old male who comes in with fevers and chills. He was recently discharged from the hospital last week - Smoking History Smoking history: Current every day smoker Have you smoked in the past 12 months: No Aproximately how many cigarettes per day: 0 - Alcohol/Substance Use Hx Alcohol Use: No Home Medications - Allergies Allergies/Adverse Reactions: Allergies Allergy/AdvReac Type Severity Reaction Status Date / Time No Known Drug Allergies Allergy Verified 05/25/18 08:50 - Home Medications Home Medications: Ambulatory Orders Nitrofurantoin Monohyd/M-Cryst [Nitrofurantoin [place]-Mcr 100 mg] 100 mg PO BID Colchicine [Colcrys -] 0.6 mg PO BID 05/25/18 Indomethacin [Indocin -] 50 mg PO BID 05/25/18 Physical Examination Vital Signs: Vital Signs Temperature 38.0 C H 05/25/18 08:47 Pulse Rate 61 05/25/18 16:02 Respiratory Rate 18 05/25/18 16:02 Blood Pressure 105/71 05/25/18 16:02 O2 Sat by Pulse Oximetry (%) 100 05/25/18 16:02 Labs: CBC, BMP 05/25/18 09:00 05/25/18 09:00
--- NOTE | 2018-05-25 16:56 | PN ---
Progress Note (short form) - Note Progress Note: ID consult dictated concern for recurrent sepsis due to UTI he started having chills after several days at home send cultures urology to see-?remove stents received vanco/zosyn in ed +UTI will switch to meropenem adjust for renal insufficiency d/w hospitalist Problem List - Problems (1) Sepsis Code(s): A41.9 - SEPSIS, UNSPECIFIED ORGANISM (2) UTI (urinary tract infection) Code(s): N39.0 - URINARY TRACT INFECTION, SITE NOT SPECIFIED Qualifiers: Urinary tract infection type: site unspecified Hematuria presence: without hematuria Qualified Code(s): N39.0 - Urinary tract infection, site not specified
--- NOTE | 2018-05-25 17:20 | PN ---
Teaching Attending Note Name of Resident: Shamir Orlando ATTENDING PHYSICIAN STATEMENT I saw and evaluated the patient. I reviewed the resident's note and discussed the case with the resident. I agree with the resident's findings and plan as documented. Mr Monterroso is a very pleasant 78 year old male who comes in with fevers and chills. He has a history of nephrolithiasis with bilateral stent placement and recent UTI s/p treatment. He was scheduled to see his urologist today, but this morning he developed fevers and chills. He says his was taking his temperature at home and he does not know what it is. He did have diaphoresis and shaking this morning. He also had nausea without vomiting. He denies lightheadedness, dizziness, passing out, chest pain, shortness of breath, coughing, abdominal pain, back pain, diarrhea, constipation, difficulty or pain on urination, or swelling. He says he is feeling fine at the moment. PMHx 1. BPH 2. Nephrolithiasis PSHx 1. bilateral ureteral stent placement Allergies None Home Medications Medication Instructions Recorded Nitrofurantoin Monohyd/M-Cryst 100 mg PO BID 05/14/18 [Nitrofurantoin [place]-Mcr 100 mg] Colchicine [Colcrys -] 0.6 mg PO BID 05/25/18 Indomethacin [Indocin -] 50 mg PO BID 05/25/18 SHx -denies smoking, alcohol, recreational drug use FHx -father from CVA ROS -full review of systems obtained, as per HPI and otherwise negative Last Vital Signs Temp Pulse Resp BP Pulse Ox 38.0 C H 61 18 105/71 100 05/25/18 08:47 05/25/18 16:02 05/25/18 16:02 05/25/18 16:02 05/25/18 16:02 Gen: nad HEENT: perrla, eomi, mmm Pulm: ctab w/o w/r/r CV: rrr w/o m/r/g Abd: +bs, s/nt/nd Back: no flank pain Ext: no c/c/e CBC, BMP 05/25/18 09:00 05/25/18 09:00 ASSESSMENT AND PLAN: Problem List - Problems (1) Sepsis Assessment/Plan: -secondary to UTI -case d/w Dr Tony -concern for MDR UTI -given vancomycin and zosyn in the ED -will place on carbapenem -hydration with IVF Code(s): A41.9 - SEPSIS, UNSPECIFIED ORGANISM (2) UTI (urinary tract infection) Assessment/Plan: -as above -patient with bilateral ureteral stents -urology consulted -suspect stents will need to be removed this admission Code(s): N39.0 - URINARY TRACT INFECTION, SITE NOT SPECIFIED Qualifiers: Urinary tract infection type: site unspecified Hematuria presence: without hematuria Qualified Code(s): N39.0 - Urinary tract infection, site not specified (3) BURAK (acute kidney injury) Assessment/Plan: -hydration -monitor for improvement Code(s): N17.9 - ACUTE KIDNEY FAILURE, UNSPECIFIED
[2018-05-25] MEDS ORDERED: PIPERACILLIN/TAZOB 2.25 GM 2.25 GM in DEXTROSE 5%-WATER - 50 ML IVPB SCH (18:00)
[2018-05-25] MEDS: MEROPENEM 1 GM in DEXTROSE 5%-WATER - 100 ML IVPB SCH ×2 (18:24→22:02)
--- NOTE | 2018-05-25 20:21 | CONS ---
INFECTIOUS DISEASE CONSULTATION DATE OF CONSULTATION: 05/25/2018 This is a 78-year-old man who was recently in the hospital from May 14 to May 18. He was admitted that admission with fevers and chills. He was status post lithotripsy on the Thursday prior to that admission for kidney stones, and he underwent this as an outpatient. He subsequently developed fevers after the procedure. He had been on Levaquin prior to surgery. He called his urologist and was started on Macrobid. He had very poor appetite, and he was admitted that admission with fever and a white count of 16.5. His cultures were negative, and he was discharged home on Vantin 200 mg b.i.d. After his discharge home, he reports that he was feeling well for several days, and then, he started having chills. His appetite became poor. He was supposed to see Dr. Rodrigo Narvaez, his urologist, today, but he had fevers and shaking chills, and he came to the hospital. He denies any cough. He denies any shortness of breath. He denies any abdominal pain. He denies any nausea or vomiting. He had a CAT scan of his abdomen and pelvis that shows bilateral ureteral stents without hydronephrosis. There is a deformity of the upper pole of the right kidney as well. He was noted to have a fever of 100.4 in the ER, and his white count was 35,000. I am asked to see him for further evaluation. PAST MEDICAL HISTORY: Notable for a history of BPH, kidney stones, and he also had colon cancer with a prior bowel resection. He had a laparoscopic low anterior resection in 2013. PRIMARY MEDICAL DOCTOR: Dr. Morales ALLERGIES: He has no known drug allergies. MEDICATIONS: At the time of admission included Vantin. SOCIAL HISTORY: He is . He lives with his . 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 There has been no travel. He has no sick contacts. REVIEW OF SYSTEMS: As per HPI. PHYSICAL EXAMINATION: General: He is awake and alert. He reports feeling improved since arriving in the ER. He is lying flat. He is an elderly man in no acute distress. Vital Signs: Currently, his pulse is 61, blood pressure 105/71, respiratory rate is 18. He is saturating 100%. HEENT: He is normocephalic. His eyes are anicteric. Neck: Supple. Lungs: Clear to auscultation. Heart: Regular rate and rhythm. Abdomen: Soft, nontender. He has no suprapubic or CVA tenderness. Extremities: Without edema. DIAGNOSTIC DATA: White count is 35,000 with a hemoglobin of 12, platelets of 379. BUN is 36 and creatinine 2. Urinalysis is 2+ leukocyte esterase with 55 white cells, and cultures are pending. CAT scan findings are as previously stated. In summary, this is an elderly man with sepsis, most likely on the basis of UTI. He does have ureteral stents in place which may need to be removed. Awaiting urology consult. He received vancomycin, Zosyn in the emergency room. We will switch to meropenem to cover for ESBL producers and adjust his antibiotic for his renal insufficiency. Case was discussed with the hospitalist. KINSEY BHAGAT M.D. [id number]
[2018-05-25 21:20] VITALS: BMI 31.8
[2018-05-25] MEDS ORDERED: PT OWN MED DRAWER 7, Y5N ONE (21:27)
[2018-05-25] MEDS: HEPARIN NA (PORCINE) 5,000 UNITS/ML 1ML VIAL SQ SCH (21:59)
[2018-05-26] MEDS: HEPARIN NA (PORCINE) 5,000 UNITS/ML 1ML VIAL SQ SCH ×3 (06:03→21:15)
[2018-05-26 07:18] LABS: BASO % 0.3 % (0-2.0); EOS % 2.2 % (0-4.5); HEMATOCRIT 28.9 % (35.4-49); HEMOGLOBIN 9.8 GM/dL (11.7-16.9); LYMPH % 5.3 % (8-40); MCH 32.8 pg (25.7-33.7); MEAN CELL VOLUME 96.5 fl (80-96); MONO % 7.1 % (3.8-10.2); NEUT % 85.1 % (42.8-82.8); PLATELET COUNT 307 K/MM3 (134-434); RDW 13.9 % (11.9-15.9); WHITE BLOOD COUNT 23.3 K/mm3 (4.0-10.0)
[2018-05-26 07:42] LABS: ALBUMIN 1.8 g/dl (3.4-5.0); ALK PHOS 126 U/L (45-117); ANION GAP 7 MMOL/L (8-16); BILIRUBIN,TOTAL 0.5 mg/dL (0.2-1); BLOOD UREA NITROGEN 36 mg/dL (7-18); CHLORIDE 107 mmol/L (98-107); CO2 23 mmol/L (21-32); CREATININE 1.8 mg/dL (0.55-1.3); GLUCOSE,RANDOM 84 mg/dL (74-106); MAGNESIUM 1.9 mg/dL (1.8-2.4); PHOSPHOROUS 2.9 mg/dL (2.5-4.9); SGOT/AST 27 U/L (15-37); SGPT/ALT 46 U/L (13-61); SODIUM 136 mmol/L (136-145); TOT PROT 4.9 g/dl (6.4-8.2)
--- NOTE | 2018-05-26 08:47 | PN ---
Progress Note, Physician - Current Medication List Current Medications: Active Medications Acetaminophen (Tylenol -) 650 mg PO Q6H PRN PRN Reason: FEVER Heparin Sodium (Porcine) (Heparin -) 5,000 unit SQ TID [facility] Last Admin: 05/26/18 06:03 Dose: 5,000 unit Sodium Chloride (Normal Saline -) 1,000 mls @ 125 mls/hr IV ASDIR [facility] Last Admin: 05/25/18 22:00 Dose: 125 mls/hr Meropenem 1 gm/ Dextrose 100 mls @ 200 mls/hr IVPB BID [facility] Last Admin: 05/25/18 22:02 Dose: 200 mls/hr Ondansetron HCl (Zofran Injection) 4 mg IVPB Q6H PRN PRN Reason: NAUSEA - Objective Vital Signs: Vital Signs Temperature 98.1 F 05/26/18 05:45 Pulse Rate 75 05/26/18 05:45 Respiratory Rate 20 05/26/18 05:45 Blood Pressure 133/82 05/26/18 05:45 O2 Sat by Pulse Oximetry (%) 99 05/25/18 21:00 Elderly F HEENT: NECK: CHEST: CVS: ABD: EXT: 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: 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: Labs: CBC, BMP 05/26/18 06:30 05/26/18 06:30 INR, PTT INR 1.54 (0.83-1.09) H 05/25/18 09:00 Problem List - Problems (1) Sepsis Code(s): A41.9 - SEPSIS, UNSPECIFIED ORGANISM (2) UTI (urinary tract infection) Code(s): N39.0 - URINARY TRACT INFECTION, SITE NOT SPECIFIED Qualifiers: Urinary tract infection type: site unspecified Hematuria presence: without hematuria Qualified Code(s): N39.0 - Urinary tract infection, site not specified (3) Acute kidney injury superimposed on chronic kidney disease Code(s): N17.9 - ACUTE KIDNEY FAILURE, UNSPECIFIED; N18.9 - CHRONIC KIDNEY DISEASE, UNSPECIFIED (4) Kidney stone Code(s): N20.0 - CALCULUS OF KIDNEY
[2018-05-26] MEDS: MEROPENEM 1 GM in DEXTROSE 5%-WATER - 100 ML IVPB SCH ×2 (09:44→21:15)
[2018-05-26] MEDS ORDERED: PIPERACILLIN/TAZOB 2.25 GM 2.25 GM in DEXTROSE 5%-WATER - 50 ML IVPB SCH (10:00)
[2018-05-26 10:37] LABS: ANISOCYTOSIS 0; MACROCYTOSIS 1+; OVALOCYTE 1+; PLATELET ESTIMATE NORMAL
--- NOTE | 2018-05-26 10:44 | EKG ---
Test Reason : Blood Pressure : / mmHG Vent. Rate : 090 BPM Atrial Rate : 090 BPM P-R Int : 148 ms QRS Dur : 078 ms QT Int : 380 ms P-R-T Axes : 007 -57 -09 degrees QTc Int : 464 ms SINUS RHYTHM WITH PREMATURE ATRIAL COMPLEXES LEFT AXIS DEVIATION ABNORMAL ECG WHEN COMPARED WITH ECG OF 14-MAY-2018 10:27, PREMATURE ATRIAL COMPLEXES ARE NOW PRESENT QT HAS LENGTHENED Confirmed by JAMEEL HASTINGS, SASHA ([id number]) on 05/26/2018 10:44:29 AM Referred By: Confirmed By:SASHA JORGENSEN MD
--- NOTE | 2018-05-26 14:05 | PN ---
Physical Exam: SUBJECTIVE: Patient seen and examined no new course overnight. report chills last night but no fever. denies pain in abdomen, nausea, vomiting. OBJECTIVE: Vital Signs Period Temp Pulse Resp BP Sys/De La Torre Pulse Ox Last 24 Hr 98.1 F-98.7 F 58-75 18-20 97-133/46-82 99-100 GENERAL: Awake, alert, and fully oriented, in no acute distress. HEAD: Normal with no signs of trauma. EARS, NOSE, THROAT: moist mucous membranes. NECK: Normal range of motion, supple without lymphadenopathy, JVD, or masses. LUNGS: Breath sounds equal, clear to auscultation bilaterally. No wheezes, and no crackles. No accessory muscle use. HEART: Regular rate and rhythm, normal S1 and S2 without murmur, rub or gallop. ABDOMEN: Soft, nontender, not distended, normoactive bowel sounds, no guarding, no rebound, no masses. UPPER EXTREMITIES: 2+ pulses, warm, well-perfused. No cyanosis. No clubbing. No peripheral edema. LOWER EXTREMITIES: warm, well-perfused. No calf tenderness. No peripheral edema. NEUROLOGICAL: Normal speech. PSYCHIATRIC: Cooperative. Good eye contact. SKIN: Warm, dry, Laboratory Results - last 24 hr 05/26/18 05/26/18 06:30 06:30 WBC 23.3 H RBC 3.00 L Hgb 9.8 L Hct 28.9 L D MCV 96.5 H MCH 32.8 MCHC 34.0 RDW 13.9 Plt Count 307 MPV 8.0 Absolute Neuts (auto) 19.8 H Neutrophils % 85.1 H Neutrophils % (Manual) 80.8 Band Neutrophils % 3.0 Lymphocytes % 5.3 L D Lymphocytes % (Manual) 9.1 D Monocytes % 7.1 Monocytes % (Manual) 5 Eosinophils % 2.2 Eosinophils % (Manual) 2.0 Basophils % 0.3 Basophils % (Manual) 0.0 Myelocytes % (Man) 0 Promyelocytes % (Man) 0 D Blast Cells % (Manual) 0 Nucleated RBC % 0 Metamyelocytes 0 Hypochromia 0 Platelet Estimate Normal Polychromasia 0 Poikilocytosis 0 Anisocytosis 0 Microcytosis 0 Macrocytosis 1+ Ovalocytes 1+ Sodium 136 Potassium 4.0 Chloride 107 Carbon Dioxide 23 Anion Gap 7 L BUN 36 H Creatinine 1.8 H Creat Clearance w eGFR 36.87 Random Glucose 84 Calcium 7.0 L Phosphorus 2.9 Magnesium 1.9 Total Bilirubin 0.5 AST 27 ALT 46 Alkaline Phosphatase 126 H Total Protein 4.9 L Albumin 1.8 L Active Medications Generic Name Dose Route Start Last Admin Trade Name Freq PRN Reason Stop Dose Admin Acetaminophen 650 mg 05/25/18 14:21 Tylenol - PO Q6H PRN FEVER Heparin Sodium (Porcine) 5,000 unit 05/25/18 22:00 05/26/18 06:03 Heparin - SQ 5,000 unit TID RAIN Administration Sodium Chloride 1,000 mls @ 125 mls/hr 05/25/18 14:30 05/25/18 22:00 Normal Saline - IV 125 mls/hr ASDIR RAIN Administration Meropenem 1 gm/ Dextrose 100 mls @ 200 mls/hr 05/25/18 17:15 05/26/18 09:44 IVPB 200 mls/hr BID RAIN Administration Ondansetron HCl 4 mg 05/25/18 14:22 Zofran Injection IVPB Q6H PRN NAUSEA Microbiology 05/25/18 09:30 Urine - Urine Clean Catch Urine Culture - Preliminary Group D Strep Or Entero Coccus 05/25/18 09:30 Blood - Peripheral Venous Blood Culture - Preliminary NO GROWTH OBTAINED AFTER 24 HOURS, INCUBATION TO CONTINUE FOR 4 DAYS. 05/25/18 09:00 Blood - Peripheral Venous Blood Culture - Preliminary NO GROWTH OBTAINED AFTER 24 HOURS, INCUBATION TO CONTINUE FOR 4 DAYS. ASSESSMENT/PLAN: The patient the 78-year-old male with a past medical history of BPH, and kidney stones who comes into the emergency department complaining of generalized malaise and fever . #urosepsis - UC report mentioned above - on meropnenm, pt feeling better, afebrile - wbc decreased from 35 to 23 - discussed with dr esha daley: we will make him npo tomorrow after breakfast and urologist will change the stents tomorrow. - Pt has b/l uretar stent and has second episode of uti now. - ID on case #BURAK cr getting better, cr 1.8 - I V fluid - avoid nephrotoxic drugs - CT didn't show any hydro or urine retention - #FEN -NS 125 ml/hr -repeat in am -regular diet #prophy -heparin SQ 5000 units Q8H #dispo -admit med surg Visit type - Emergency Visit Emergency Visit: Yes ED Registration Date: 05/25/18 Care time: The patient presented to the Emergency Department on the above date and was hospitalized for further evaluation of their emergent condition. - New Patient This patient is new to me today: No - Critical Care Critical Care patient: No - Discharge Referral Referred to [facility] Med P.C.: No
--- NOTE | 2018-05-26 14:33 | PN ---
Teaching Attending Note Name of Resident: Shamir Orlando ATTENDING PHYSICIAN STATEMENT I saw and evaluated the patient. I reviewed the resident's note and discussed the case with the resident. I agree with the resident's findings and plan as documented. 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 focal LABS: CBC, BMP 05/26/18 06:30 05/26/18 06:30 Active Medications Acetaminophen (Tylenol -) 650 mg PO Q6H PRN PRN Reason: FEVER Heparin Sodium (Porcine) (Heparin -) 5,000 unit SQ TID [facility] Last Admin: 05/26/18 06:03 Dose: 5,000 unit Sodium Chloride (Normal Saline -) 1,000 mls @ 125 mls/hr IV ASDIR [facility] Last Admin: 05/25/18 22:00 Dose: 125 mls/hr Meropenem 1 gm/ Dextrose 100 mls @ 200 mls/hr IVPB BID [facility] Last Admin: 05/26/18 09:44 Dose: 200 mls/hr Ondansetron HCl (Zofran Injection) 4 mg IVPB Q6H PRN PRN Reason: NAUSEA Microbiology 05/25/18 09:30 Urine - Urine Clean Catch Urine Culture - Preliminary Group D Strep Or Entero Coccus 05/25/18 09:30 Blood - Peripheral Venous Blood Culture - Preliminary NO GROWTH OBTAINED AFTER 24 HOURS, INCUBATION TO CONTINUE FOR 4 DAYS. 05/25/18 09:00 Blood - Peripheral Venous Blood Culture - Preliminary NO GROWTH OBTAINED AFTER 24 HOURS, INCUBATION TO CONTINUE FOR 4 DAYS. ASSESSMENT AND PLAN:78 yrs old man with h/O renal stones s/p B/L Uretral stent placement on 05/18/2018 was Dc home after the procedure, present with elevated TWBC > 30 K with Left shift fever chills and elevated lactic acid evaluated by ID on IV Meropenem. patient feels improved Problem List - Problems (1) Sepsis Assessment/Plan: Due to UTI cont current abx improving F/U culture Code(s): A41.9 - SEPSIS, UNSPECIFIED ORGANISM (2) UTI (urinary tract infection) Assessment/Plan: UA + grew Entero cocci cont current abx Code(s): N39.0 - URINARY TRACT INFECTION, SITE NOT SPECIFIED Qualifiers: Urinary tract infection type: site unspecified Hematuria presence: without hematuria Qualified Code(s): N39.0 - Urinary tract infection, site not specified (3) Acute kidney injury superimposed on chronic kidney disease Assessment/Plan: Due to sepsis improving base line CKD stage 3 Code(s): N17.9 - ACUTE KIDNEY FAILURE, UNSPECIFIED; N18.9 - CHRONIC KIDNEY DISEASE, UNSPECIFIED (4) Kidney stone Assessment/Plan: S/P B/L stent Code(s): N20.0 - CALCULUS OF KIDNEY
[2018-05-26] MEDS: SODIUM CHLORIDE 1,000 ML IV SCH ×2 (15:09→21:15)
--- NOTE | 2018-05-26 16:19 | PN ---
Progress Note (short form) - Note Progress Note: feels better no more chills on discharge he resumed the macrobid! apparently there was a problem with the vantin prescription-called the pharmacy to confirm Vital Signs Period Temp Pulse Resp BP Sys/De La Torre Pulse Ox Last 24 Hr 98.1 F-98.7 F 58-75 18-20 97-133/46-82 99-99 cor-rrr lungs clear abd soft,nt ext no edema CBC, BMP 05/26/18 06:30 05/26/18 06:30 Microbiology 05/25/18 09:30 Urine - Urine Clean Catch Urine Culture - Preliminary Group D Strep Or Entero Coccus 05/25/18 09:30 Blood - Peripheral Venous Blood Culture - Preliminary NO GROWTH OBTAINED AFTER 24 HOURS, INCUBATION TO CONTINUE FOR 4 DAYS. 05/25/18 09:00 Blood - Peripheral Venous Blood Culture - Preliminary NO GROWTH OBTAINED AFTER 24 HOURS, INCUBATION TO CONTINUE FOR 4 DAYS. a/p concern for recurrent sepsis due to UTI he started having chills after several days at home-was on macrobid again! add vancomycin one gram for enterococcus esr/crp echo f/u with urology
[2018-05-26] MEDS ORDERED: VANCOMYCIN HCL 1,250 MG in DEXTROSE 5%-WATER - 250 ML IVPB ONE (17:00)
[2018-05-26] MEDS ORDERED: PT OWN MED DRAWER 7, Y5N ONE (21:14)
[2018-05-27] MEDS: HEPARIN NA (PORCINE) 5,000 UNITS/ML 1ML VIAL SQ SCH ×3 (06:05→23:01)
[2018-05-27] MEDS: SODIUM CHLORIDE 1,000 ML IV SCH ×3 (06:23→21:20)
--- NOTE | 2018-05-27 08:19 | PN ---
Teaching Attending Note Name of Resident: Shamir Orlando ATTENDING PHYSICIAN STATEMENT I saw and evaluated the patient. I reviewed the resident's note and discussed the case with the resident. I agree with the resident's findings and plan as documented. SUBJECTIVE: OBJECTIVE: Vital Signs Temperature 98.9 F 05/27/18 05:00 Pulse Rate 66 05/27/18 05:00 Respiratory Rate 20 05/27/18 05:00 Blood Pressure 143/73 05/27/18 05:00 O2 Sat by Pulse Oximetry (%) 99 05/26/18 22:00 Elderly man comfortable not in distress HEENT: Mm moist, no anemia, PERRLA, EOMI NECK: Mm moist no anemia, PERRLA EOMI CHST: CTA B/L CVS: S1S2 R no m/g/r ABD: No distention, non tender Bs + EXT: No edema feet, no calf tenderness, Pulses + PIECE GOODS CLERK: AOX3 non focal ASSESSMENT AND PLAN:ASSESSMENT AND PLAN:78 yrs old man with h/O renal stones s/ p B/L Uretral stent placement on 05/18/2018 was Dc home after the procedure, present with elevated TWBC > 30 K with Left shift fever chills and elevated lactic acid evaluated by ID on IV Meropenem. recived one dose of Vanco as UC prelim Grew Group D Strepto Cocci. patient feels improved Problem List - Problems (1) Sepsis Assessment/Plan: Due to UTI cont improving afebrile tWBC 10 K prelim culture Entero Cocci/Group d strepto cocci recived one dose of Vanco F/U ID and final culture report. Code(s): A41.9 - SEPSIS, UNSPECIFIED ORGANISM (2) UTI (urinary tract infection) Assessment/Plan: UA + grew Entero cocci cont current abx Code(s): N39.0 - URINARY TRACT INFECTION, SITE NOT SPECIFIED Qualifiers: Urinary tract infection type: site unspecified Hematuria presence: without hematuria Qualified Code(s): N39.0 - Urinary tract infection, site not specified (3) Acute kidney injury superimposed on chronic kidney disease Assessment/Plan: Due to sepsis improving base line CKD stage 3 Code(s): N17.9 - ACUTE KIDNEY FAILURE, UNSPECIFIED; N18.9 - CHRONIC KIDNEY DISEASE, UNSPECIFIED (4) Kidney stone Assessment/Plan: S/P B/L stent will be replaced by Urologist Code(s): N20.0 - CALCULUS OF KIDNEY
[2018-05-27 08:28] LABS: BASO % 0.8 % (0-2.0); EOS % 5.6 % (0-4.5); HEMATOCRIT 32.1 % (35.4-49); LYMPH % 15.5 % (8-40); MCH 33.3 pg (25.7-33.7); MCHC 34.2 g/dl (32.0-35.9); MEAN CELL VOLUME 97.2 fl (80-96); MEAN PLT VOLUME 8.3 fl (7.5-11.1); MONO % 8.1 % (3.8-10.2); PLATELET COUNT 303 K/MM3 (134-434); RDW 14.1 % (11.9-15.9); WHITE BLOOD COUNT 12.2 K/mm3 (4.0-10.0)
--- NOTE | 2018-05-27 08:41 | CONSULT ---
Consult - text type - Consultation Consultation Note: cc: recurrent urosepsis hpi: patient with history of bilateral ureteral obstruction secondary to stones. Patient with continued renal insuffficiency. PE vss; afeb abdomen soft nontender mild bilateral CVAT 3+ prostate without fluctuance nl phallus testes imp urosepsis with leukocytosis bilateral ureteral obstruction secondary to stones s/p bilateral stents renal insufficiency plan will change stents today at 5:00 pm in OR emergently discussed with patient and and staff x 25 minutes
[2018-05-27 08:59] LABS: ANION GAP 7 MMOL/L (8-16); BLOOD UREA NITROGEN 30 mg/dL (7-18); CALCIUM 7.4 mg/dL (8.5-10.1); CHLORIDE 111 mmol/L (98-107); CO2 22 mmol/L (21-32); CREATININE 1.7 mg/dL (0.55-1.3); GLUCOSE,RANDOM 78 mg/dL (74-106); POTASSIUM 4.3 mmol/L (3.5-5.1); SODIUM 140 mmol/L (136-145)
[2018-05-27] MEDS: MEROPENEM 1 GM in DEXTROSE 5%-WATER - 100 ML IVPB SCH ×2 (10:03→23:01)
--- NOTE | 2018-05-27 12:23 | ECHO ---
Name: JEWELL CALLES Exam:Adult Echocardiogram Study Date: 05/27/2018 07:37 AM Age: 78 yrs Reason For Study: R/O Endocarditis Height: 68 in Weight: 218 lb BSA: 2.1 m2 MMode/2D Measurements & Calculations IVSd: 1.5 cm Ao root diam: 3.7 cm LVIDd: 4.4 cm LA dimension: 3.7 cm LVIDs: 3.0 cm LVPWd: 0.98 cm EDV(Teich): 86.5 ml LVOT diam: 2.0 cm ESV(Teich): 35.1 ml Doppler Measurements & Calculations MV E max blaine: 109.0 cm/sec Ao V2 max: 162.9 cm/sec MV A max blaine: 82.0 cm/sec Ao max P.6 mmHg MV E/A: 1.3 AI P1/2t: 714.9 msec MV dec time: 0.15 sec PHILIP(V,D): 2.9 cm2 AI max blaine: 360.4 cm/sec LV V1 max P.2 mmHg AI max P.0 mmHg LV V1 max: 143.1 cm/sec AI dec slope: 147.6 cm/sec2 MR max blaine: 385.8 cm/sec TR max blaine: 332.8 cm/sec MR max P.8 mmHg TR max P.4 mmHg PA V2 max: 109.9 cm/sec Med Peak E' Blaine: 8.8 cm/sec PA max P.8 mmHg Med E/e': 12.4 Lat Peak E' Blaine: 9.0 cm/sec Lat E/e': 12.1 PI Vmax: 146.1 cm/sec Procedure A complete two-dimensional transthoracic echocardiogram was performed (2D, M-mode, Doppler and color flow Doppler). Left Ventricle The left ventricular size, thickness and function are normal. The left ventricular ejection fraction is normal. Ejection Fraction = 55-60%. The left ventricular wall motion is normal. Right Ventricle The right ventricle is normal in size and function. Atria Normal left and right atrial size and function. Mitral Valve There is trace mitral regurgitation. Tricuspid Valve There is mild tricuspid regurgitation. Right ventricular systolic pressure is elevated at 40-50mmHg. Aortic Valve The aortic valve is trileaflet. No hemodynamically significant valvular aortic stenosis. Trace aortic regurgitation. Pulmonic Valve Trace pulmonic valvular regurgitation. Great Vessels The aortic root is normal size. Pericardium/Pleura There is no pericardial effusion. Interpretation Summary The left ventricular size, thickness and function are normal The right ventricle is normal in size and function. There is trace mitral regurgitation. There is mild tricuspid regurgitation. Right ventricular systolic pressure is elevated at 40-50mmHg. Trace aortic regurgitation. Trace pulmonic valvular regurgitation. MD Crispin Foster 05/27/2018 12:22 PM
[2018-05-27] MEDS ORDERED: ONDANSETRON 4 MG/2 ML VIAL IVPUSH PRN ×2 (17:13→20:51)
[2018-05-27] MEDS ORDERED: LACTATED RINGERS SOLUTION 1,000 ML IV SCH ×2 (17:15→20:51)
--- NOTE | 2018-05-27 17:49 | PN ---
Progress Note (short form) - Note Progress Note: feels better no more chills for stent removal today Vital Signs Period Temp Pulse Resp BP Sys/De La Torre Pulse Ox Last 24 Hr 98.3 F-98.9 F 66-77 18-20 120-143/59-75 99 cor-rrr lungs clear abd soft,nt ext no edema CBC, BMP 05/27/18 07:30 05/27/18 07:30 Microbiology 05/25/18 09:30 Urine - Urine Clean Catch Urine Culture - Final Enterococcus Faecalis 05/25/18 09:30 Blood - Peripheral Venous Blood Culture - Preliminary NO GROWTH OBTAINED AFTER 48 HOURS, INCUBATION TO CONTINUE FOR 3 DAYS. 05/25/18 09:00 Blood - Peripheral Venous Blood Culture - Preliminary NO GROWTH OBTAINED AFTER 48 HOURS, INCUBATION TO CONTINUE FOR 3 DAYS. Laboratory Tests 05/27/18 05/27/18 07:30 07:30 ESR 91 H C-Reactive Protein 14.4 H a/p concern for recurrent sepsis due to UTI he started having chills after several days at home-was on macrobid again! for stent removal today continue meropenem today pending stent removal add ampicillin in am will adjust antibiotics further unasyn 3 g not available in the pharmacy (on back order) f/u with urology
[2018-05-27] MEDS ORDERED: AMPICILLIN - 2 GM in SODIUM CHLORIDE 100 ML IVPB SCH (18:00)
[2018-05-27] MEDS ORDERED: LIDOCAINE HCL/PF 2% SDV 5ML VIAL ONE (18:34)
[2018-05-27] MEDS ORDERED: KETOROLAC TROMETHAMINE 30 MG/1 ML VIAL ONE (18:34)
[2018-05-27] MEDS ORDERED: DEXAMETHASONE SOD PHOSPHATE 4 MG/1 ML VIAL ONE (18:34)
[2018-05-27] MEDS ORDERED: ePHEDrine SULFATE 50 MG/1 ML AMPULE ONE (18:36)
[2018-05-27] MEDS ORDERED: PROPOFOL 20 ML ONE (18:37)
[2018-05-27] MEDS ORDERED: MIDAZOLAM HCL 2 MG/2 ML SINGLE DOSE VIAL ONE (18:38)
--- NOTE | 2018-05-27 20:10 | OP ---
Operative Note - Note: Operative Date: 05/27/18 Pre-Operative Diagnosis: Acute appendicitis Surgeon: Ana Schulte
--- NOTE | 2018-05-27 20:40 | OP ---
Operative Note - Note: Operative Date: 05/27/18 Pre-Operative Diagnosis: urosepsis/acute renal injury/bilateral renal and ureteral stones/bilateral hydronephrosis Operation: cystoscopy/bilateral retrograde pyelogram/bilateral ureteral stent exchange/right ureteroscopic stone manipulation/left ureteral stone basketing Findings: proximal right ureteral stone manipulated into kidney/left distal ureteral stones basketed Post-Operative Diagnosis: Same as Pre-op Surgeon: Rishabh Alejandre Anesthesia: General Specimens Removed: bilateral ureteral stents/left ureteral stones Drains & Tubes with Location: bilateral 09/20 ureteral stents Operative Report Dictated: Yes
[2018-05-27] MEDS ORDERED: ONDANSETRON 4 MG/2 ML VIAL IVPB PRN (20:51)
[2018-05-27] MEDS ORDERED: ACETAMINOPHEN 325 MG TABLET (FP) PO PRN (20:51)
--- NOTE | 2018-05-27 21:09 | OP ---
DATE OF OPERATION: 05/27/2018 Mr. Ramón Monterroso is a 78-year-old gentleman with acute renal insufficiency with urosepsis. The patient has bilateral ureteral stents, however has continued leukocytosis with flank pain. The patient is brought into the operating room in order to insure there is no obstruction of the stents or the ureters. The patient is status post bilateral ureteral stone basketing followed by bilateral extracorporeal shockwave lithotripsy. The patient is taken emergently to the operating room in order to avoid further injury to the kidney and worsening of the urosepsis. The patient understands all risks and benefits. The patient was brought in the operating room, placed in supine position on the operating room table. General anesthesia is administered. The patient is currently on antibiotics from the floor as designated by the infectious disease team. The patient is placed in dorsal lithotomy position, prepped and draped in the usual sterile manner. Cystoscopy is performed. No evidence of stones within the bladder are noted. Both ureteral stents are identified. The left ureteral stent is removed. At this point, a wire was placed into the left ureteral orifice, and under fluoroscopic visualization is passed into the kidney. There are multiple calcifications within the distal ureter. The ureteroscopy was performed. Two large stones were noted. A retrograde pyelogram is performed through the ureteroscope. There is no further calcifications or obstructions of the ureter. At this point, the distal ureteral stones are basketed and removed under direct visualization . These are sent to pathology for evaluation . With this accomplished, a 6 Czech 24 centimeter stent is replaced over the wire, utilizing the Seldinger technique. With this accomplished, the right stent was removed. A wire was passed proximally under fluoroscopic visualization. A proximal ureteral calcification was noted. Ureteroscopy was performed, and a filling defect in the proximal ureter was noted. At this point, ureteroscopy was taken to the level of the filling defect in the proximal ureter. A stone was noted; however, because of the risk of worsening of the urosepsis and manipulating the stone, it was pushed into the lower pole calyx and the ureteroscope removed. A 6 Czech 24-cm stent was then placed over the wire utilizing the Seldinger technique. No complication was noted. The patient tolerated procedure very well. DISPOSITION: Patient to recovery room. Mal [id number]
[2018-05-27] MEDS ORDERED: PT OWN MED DRAWER 7, Y5N ONE (23:00)
[2018-05-28] MEDS: AMPICILLIN - 2 GM in SODIUM CHLORIDE 100 ML IVPB SCH ×2 (02:19→10:18)
[2018-05-28] MEDS: HEPARIN NA (PORCINE) 5,000 UNITS/ML 1ML VIAL SQ SCH (05:36)
[2018-05-28] MEDS: SODIUM CHLORIDE 1,000 ML IV SCH (05:41)
[2018-05-28 07:50] LABS: BASO % 0.3 % (0-2.0); EOS % 0.1 % (0-4.5); HEMATOCRIT 34.5 % (35.4-49); HEMOGLOBIN 11.6 GM/dL (11.7-16.9); LYMPH % 12.4 % (8-40); MCH 32.5 pg (25.7-33.7); MCHC 33.5 g/dl (32.0-35.9); MEAN CELL VOLUME 96.9 fl (80-96); MEAN PLT VOLUME 8.5 fl (7.5-11.1); MONO % 3.8 % (3.8-10.2); NEUT % 83.4 % (42.8-82.8); PLATELET COUNT 305 K/MM3 (134-434); RBC 3.56 M/mm3 (4.00-5.60); RDW 14.1 % (11.9-15.9); WHITE BLOOD COUNT 8.1 K/mm3 (4.0-10.0)
[2018-05-28 08:41] LABS: ALBUMIN 2.1 g/dl (3.4-5.0); ANION GAP 9 MMOL/L (8-16); BILIRUBIN,TOTAL 0.6 mg/dL (0.2-1); BLOOD UREA NITROGEN 32 mg/dL (7-18); CALCIUM 7.7 mg/dL (8.5-10.1); CHLORIDE 108 mmol/L (98-107); CO2 20 mmol/L (21-32); CREATININE 1.7 mg/dL (0.55-1.3); GLUCOSE,RANDOM 126 mg/dL (74-106); POTASSIUM 4.7 mmol/L (3.5-5.1); SGOT/AST 58 U/L (15-37); SGPT/ALT 90 U/L (13-61); SODIUM 137 mmol/L (136-145)
[2018-05-28 08:42] LABS: ALK PHOS 174 U/L (45-117)
--- NOTE | 2018-05-28 08:45 | PN ---
Progress Note (short form) - Note Progress Note: S/p cystoscopy with bilateral stent placement under GA uneventful.Patient stable.No any anesthesia related problem.Patient Dc from the anesthesia care.
--- NOTE | 2018-05-28 09:12 | PN ---
Teaching Attending Note Name of Resident: Shamir Orlando ATTENDING PHYSICIAN STATEMENT I saw and evaluated the patient. I reviewed the resident's note and discussed the case with the resident. I agree with the resident's findings and plan as documented. SUBJECTIVE: OBJECTIVE: Vital Signs Temperature 98.3 F 05/28/18 06:00 Pulse Rate 54 L 05/28/18 06:00 Respiratory Rate 18 05/27/18 23:00 Blood Pressure 145/81 05/28/18 06:00 O2 Sat by Pulse Oximetry (%) 98 05/27/18 23:00 Elderly man comfortable not in distress HEENT: Mm moist, no anemia, PERRLA, EOMI NECK: Mm moist no anemia, PERRLA EOMI CHST: CTA B/L CVS: S1S2 R no m/g/r ABD: No distention, non tender Bs + EXT: No edema feet, no calf tenderness, Pulses + DIRECTOR MEDICAL ECONOMICS: AOX3 non focal CBC, BMP 05/28/18 07:00 05/28/18 07:00 Active Medications Acetaminophen (Tylenol -) 650 mg PO Q6H PRN PRN Reason: FEVER Heparin Sodium (Porcine) (Heparin -) 5,000 unit SQ TID [facility] Last Admin: 05/28/18 05:36 Dose: 5,000 unit Ampicillin Sodium 2 gm/ Sodium (Chloride) 100 mls @ 200 mls/hr IVPB Q8H-IV [facility] ; Protocol Last Admin: 05/28/18 02:19 Dose: 200 mls/hr Lactated Ringer's (Lactated Ringers Solution) 1,000 mls @ 75 mls/hr IV ASDIR [facility] Last Admin: 05/27/18 23:02 Dose: Not Given Meropenem 1 gm/ Dextrose 100 mls @ 200 mls/hr IVPB BID [facility] Last Admin: 05/27/18 23:01 Dose: 200 mls/hr Sodium Chloride (Normal Saline -) 1,000 mls @ 125 mls/hr IV ASDIR [facility] Last Admin: 05/28/18 05:41 Dose: 125 mls/hr Ondansetron HCl (Zofran Injection) 4 mg IVPB Q6H PRN PRN Reason: NAUSEA ASSESSMENT AND PLAN:ASSESSMENT AND PLAN:78 yrs old man with h/O renal stones s/ p B/L Uretral stent placement on 05/18/2018 was Dc home after the procedure, present with elevated TWBC > 30 K with Left shift fever chills and elevated lactic acid evaluated by ID on IV Meropenem. recived one dose of Vanco as UC prelim Grew Group D Strepto Cocci. patient feels improved, CBC trended normal Problem List - Problems (1) Sepsis Assessment/Plan: Due to UTI improved TWBC 8 K , Grew E Fecalis ID switched to Po augmentin can be Dc Home. Code(s): A41.9 - SEPSIS, UNSPECIFIED ORGANISM (2) UTI (urinary tract infection) Assessment/Plan: UA + grew E fecalis switched to Po augmentin camn be Dc home Code(s): N39.0 - URINARY TRACT INFECTION, SITE NOT SPECIFIED Qualifiers: Urinary tract infection type: site unspecified Hematuria presence: without hematuria Qualified Code(s): N39.0 - Urinary tract infection, site not specified (3) Acute kidney injury superimposed on chronic kidney disease Assessment/Plan: Improving base line CKD stage 3 Code(s): N17.9 - ACUTE KIDNEY FAILURE, UNSPECIFIED; N18.9 - CHRONIC KIDNEY DISEASE, UNSPECIFIED (4) Kidney stone Assessment/Plan: S/P B/L stent will be replaced by Urologist Code(s): N20.0 - CALCULUS OF KIDNEY
--- NOTE | 2018-05-28 09:43 | DS ---
Physical Exam: SUBJECTIVE: Patient seen and examined OBJECTIVE: Vital Signs Period Temp Pulse Resp BP Sys/De [place] Torre Pulse Ox Last 24 Hr 98.0 F-98.6 F 54-86 16-20 113-148/53-97 98-100 PHYSICAL EXAM GENERAL: The patient is awake, alert, and fully oriented, in no acute distress. HEAD: Normal with no signs of trauma. EYES: PERRL, extraocular movements intact, sclera anicteric, conjunctiva clear. ENT: Ears normal, nares patent, oropharynx clear without exudates, moist mucous membranes. NECK: Trachea midline, full range of motion, supple. LUNGS: Breath sounds equal, clear to auscultation bilaterally, no wheezes, no crackles, no accessory muscle use. HEART: Regular rate and rhythm, S1, S2 without murmur, rub or gallop. ABDOMEN: Soft, nontender, nondistended, normoactive bowel sounds, no guarding, no rebound, no hepatosplenomegaly, no masses. EXTREMITIES: 2+ pulses, warm, well-perfused, no edema. NEUROLOGICAL: Cranial nerves II through XII grossly intact. Normal speech, gait not observed. PSYCH: Normal mood, normal affect. SKIN: Warm, dry, normal turgor, no rashes or lesions noted. LABS Laboratory Results - last 24 hr 05/28/18 05/28/18 07:00 07:00 WBC 8.1 RBC 3.56 L Hgb 11.6 L Hct 34.5 L MCV 96.9 H MCH 32.5 MCHC 33.5 RDW 14.1 Plt Count 305 MPV 8.5 Absolute Neuts (auto) 6.8 Neutrophils % 83.4 H Lymphocytes % 12.4 Monocytes % 3.8 Eosinophils % 0.1 D Basophils % 0.3 Nucleated RBC % 0 Sodium 137 Potassium 4.7 Chloride 108 H Carbon Dioxide 20 L Anion Gap 9 BUN 32 H Creatinine 1.7 H Creat Clearance w eGFR 39.38 Random Glucose 126 H Calcium 7.7 L Total Bilirubin 0.6 AST 58 H ALT 90 H Alkaline Phosphatase 174 H Total Protein 6.0 L Albumin 2.1 L TECHNIQUE: Sequential axial images were obtained from the domes of the diaphragm through the symphysis pubis. Since a prior study of 05/14/2018, bilateral ureteral stents are reidentified. The proximal portions of the stents are coiled within the upper collecting systems. The distal portions of the stents are coiled within the urinary bladder. There is no evidence of hydronephrosis. There is a deformity of the upper pole of the right kidney. This may be related to prior surgery or a prior inflammatory process. The liver , spleen, pancreas and adrenal glands demonstrate no significant abnormalities. There is no evidence of intra-abdominal or retroperitoneal lymphadenopathy or fluid collections. Examination of the pelvis demonstrates no evidence of pelvic masses, fluid collections or lymphadenopathy. There is no evidence of acute bony abnormalities. IMPRESSION: Bilateral ureteral stents with no evidence of hydronephrosis, acute pathology or significant change since 05/14/2018. Please see above discussion. HOSPITAL COURSE: Mr Monterroso is a very pleasant 78 year old male who comes in with fevers and chills. He has a history of nephrolithiasis with bilateral stent placement and recent UTI s/p treatment. He was scheduled to see his urologist today, but this morning he developed fevers and chills. He says his was taking his temperature at home and he does not know what it is. He did have diaphoresis and shaking this morning. He also had nausea without vomiting. He denies lightheadedness, dizziness, passing out, chest pain, shortness of breath , coughing, abdominal pain, back pain, diarrhea, constipation, difficulty or pain on urination, or swelling. He says he is feeling fine at the moment. In hospital pt found to have urosepsis and pt was treated with IV antibiotics Meropenem and ampicillin. As this was his second attack of urosepsis after b/l uretral stent so urology was consulted and pt underwent procedure on 05/17/18 and his both tents was replaced with new stents. Pt wbc counts decreased to normal range over the course of hospital and pt is afebrile. In hospital pt was also found to have noble and with IV hydration and changing of stents his creatnine is back to base line 1.6- 1.8. Ct scan done in hospital didn't show any hydronephrosis. Pt is accepting orally. Denies any pain in abdomen, nausea, vomiting, fever and chills. Pt is dc in stable condition with PO antibiotics augmentin to complete a course of 14 days of antibiotics. Follow up with Dr. Morales with in one week. Follow up with Dr cervantes with in 2 week. Follow up with Urologist Dr. el. melvin Drink plenty of liquid. Take augmentin antibiotic twice a day for 11 more days. Take all other medications as you were taking it before. You need to get repeat bmp, esr and crp. Its a blood work. Please ask your doctor to repeat it after one week. ESR 91 on 05/27. crp 14 on 05/17, cr 1.7 If you again develop fever, chills, pain abdomen, nausea, vomiting or any new symptoms please call your doctor or go to hospital. Date of Admission:05/25/18 Date of Discharge: 05/28/18 Minutes to complete discharge: 45 Discharge Summary Reason For Visit: UTI,SEPSIS Current Active Problems Acute kidney injury superimposed on chronic kidney disease (Acute) BPH (benign prostatic hyperplasia) (Acute) Sepsis (Acute) UTI (urinary tract infection) (Acute) Condition: Stable - Instructions Diet, Activity, Other Instructions: Follow up with Dr. Morales with in one week. Follow up with Dr cervantes with in 2 week. Follow up with Urologist Dr. el. melvin Drink plenty of liquid. Take augmentin antibiotic twice a day for 11 more days. Take all other medications as you were taking it before. You need to get repeat bmp, esr and crp. Its a blood work. Please ask your doctor to repeat it after one week. ESR 91 on 05/27. crp 14 on 05/17, cr 1.7 If you again develop fever, chills, pain abdome, nausea, vomiting or any new symptoms please call your doctor or go to hospital. Referrals: Eric Morales MD [Primary Care Provider] - 1 Week Disposition: HOME - Home Medications Comprehensive Discharge Medication List: Ambulatory Orders Amox-Tr/K Cl [Augmentin - 875Mg Tablet] 1 tab PO BID #22 tablet 05/28/18 This patient is new to me today: No Emergency Visit: Yes ED Registration Date: 05/25/18 Care time: The patient presented to the Emergency Department on the above date and was hospitalized for further evaluation of their emergent condition. Critical Care patient: No - Discharge Referral Referred to [facility] Med P.C.: No
[2018-05-28] MEDS ORDERED: PT OWN MED DRAWER 7, Y5N ONE (10:03)
[2018-05-28] MEDS: MEROPENEM 1 GM in DEXTROSE 5%-WATER - 100 ML IVPB SCH (10:18)
[2018-05-28 13:31] VITALS: BP 145/74; PULSE 57; TEMP 97.7
--- NOTE | 2018-05-31 17:00 | PATH ---
Surgical Pathology Report Patient Name: JEWELL CALLES Med. Rec. #: [id number] /Age/Gender: 1940 (Age: 78) / M Account: [id number] Location: [address] [place] [address] Taken: 05/27/2018 Received: 05/28/2018 Reported: 05/31/2018 Physicians: Rishabh Cuba M.D. Specimen(s) Received A: BILATERAL URETERAL STENTS B: LEFT URETERAL STONE Clinical History Urosepsis, bilateral hydronephrosis, bilateral renal and ureteral stones Final Diagnosis A. BILATERAL URETERAL STENTS, REMOVAL: CONSISTENT WITH URETERAL STENTS. GROSS EXAMINATION ONLY. B. LEFT URETHERAL STONE, REMOVAL: CONSISTENT WITH URETERAL CALCULI. SENT FOR CHEMICAL ANALYSIS. Electronically Signed Gildardo Hernandez M.D. Gross Description A. Received fresh labeled "bilateral ureteral stent," are 2 yellow-green, coiled portions of tubing averaging 34 cm in length, consistent with ureteral stents. No soft tissue is present. No sections are submitted, gross only. B. Received fresh labeled "left ureteral stones," are 3 mehta, irregular calculi ranging from 0.3-0.5 cm in greatest dimension. The specimen is sent for chemical analysis. /05/28/201805/28/2018
[2018-06-04 08:36] LABS: CA OXALATE MONOHYDR. 95 % (.)
== END 2018-05-28 13:31 | disposition home or self-care (01) | DRG 854 ==
LOC: JER 08:43 → JERBED 10:34 → J6S 20:31
PROVIDERS: ADMIT Internal Medicine; ATTEND Internal Medicine
PROC: BT1BYZZ Fluoroscopy of Bladder and Urethra using Other Contrast (ICD-10-PCS; 2018-05-27)
PROC: 0TJB8ZZ Inspection of Bladder, Via Natural or Artificial Opening Endoscopic (ICD-10-PCS; 2018-05-27)
PROC: 0TC78ZZ Extirpation of Matter from Left Ureter, Via Natural or Artificial Opening Endoscopic (ICD-10-PCS; principal; 2018-05-27 18:30)
PROC: 0T788DZ Dilation of Bilateral Ureters with Intraluminal Device, Via Natural or Artificial Opening Endoscopic (ICD-10-PCS; 2018-05-27 18:30)
PROC: 0TP98DZ Removal of Intraluminal Device from Ureter, Via Natural or Artificial Opening Endoscopic (ICD-10-PCS; 2018-05-27 18:30)
DX: A41.9 Sepsis, unspecified organism (principal); N20.2 Calculus of kidney with calculus of ureter; N39.0 Urinary tract infection, site not specified; N17.9 Acute kidney failure, unspecified; N18.3 Chronic kidney disease, stage 3 (moderate); N40.0 Benign prostatic hyperplasia without lower urinary tract symptoms; Z85.038 Personal history of other malignant neoplasm of large intestine; Z90.49 Acquired absence of other specified parts of digestive tract; F17.210 Nicotine dependence, cigarettes, uncomplicated; R39.15 Urgency of urination; B95.2 Enterococcus as the cause of diseases classified elsewhere
CPT/HCPCS: 36415; 71045-TC-FY; 74176-TC; 76000-TC-FY; 80048; 80053; 81003; 81015; 82360; 82803; 83605; 83735; 84100; 84484; 85025; 85610; 85651; 85730; 86140; 87040; 87086; 87186; 88300-TC; 93005; 93010; 93306-TC; 94760; 99284-25; J0131; J1644; J7030

== ENCOUNTER 2018-07-05 08:01 | Day surgery (SDC) | payer OTHER ==
[2018-07-02 11:21] VITALS: BMI 32.6
[2018-07-05] MEDS ORDERED: PROPOFOL 20 ML ONE (09:05)
[2018-07-05] MEDS ORDERED: MIDAZOLAM HCL 2 MG/2 ML SINGLE DOSE VIAL ONE (09:06)
--- NOTE | 2018-07-05 09:41 | OP ---
Operative Note - Note: Operative Date: 07/05/18 Pre-Operative Diagnosis: Right Renal stone Operation: Right ESWL Findings: 7 mm mid pole renal stone Post-Operative Diagnosis: Same as Pre-op Surgeon: Rishabh Alejandre Anesthesia: Fractional Estimated Blood Loss (mls): 0 Drains, Volume Out (mls): 0 Operative Report Dictated: Yes
[2018-07-05 10:39] VITALS: BP 133/69; PULSE 72; TEMP 97.5
--- NOTE | 2018-07-05 22:43 | OP ---
DATE OF OPERATION: 07/05/2018 PREOPERATIVE DIAGNOSIS: Right renal stone. POSTOPERATIVE DIAGNOSIS: Right renal stone. PROCEDURE: Right extracorporeal shockwave lithotripsy. ATTENDING: Marko Loving MD ANESTHESIA: Fractional. OPERATION: The patient was brought in the operating room, placed in supine position on the operating room table. Ultrasonography and fluoroscopy were performed. A 7-mm right mid pole stone was identified. Anesthesia and antibiotics were then administered. Shockwave lithotripsy was performed. No complications were noted. DISPOSITION OF THE PATIENT: To recovery room. MARKO LOVING M.D. [id number]
== END 2018-07-05 10:40 | disposition home or self-care (01) ==
LOC: JASU-SURG 08:01
PROVIDERS: ATTEND Urology
PROC: 0TF3XZZ Fragmentation in Right Kidney Pelvis, External Approach (ICD-10-PCS; principal; 2018-07-05 09:30)
DX: N20.0 Calculus of kidney (principal)

== ENCOUNTER 2018-07-22 20:56 | Inpatient (IN) | payer OTHER ==
[2018-07-22 21:12] VITALS: BMI 30.5
[2018-07-22] MEDS ORDERED: ONDANSETRON 4 MG/2 ML VIAL IVPUSH ONE (22:03)
[2018-07-22] MEDS ORDERED: ACETAMINOPHEN 1000 MG/100 ML VIAL (NON FORMULARY) IVPB ONE (22:03)
[2018-07-22] MEDS ORDERED: FAMOTIDINE 20 MG/50 ML IVPB 20 MG/50 ML MG IVPB ONE (22:03)
[2018-07-22] MEDS ORDERED: SODIUM CHLORIDE 0.9% 1000 ML INFUS.BAG IV ONE (22:03)
--- NOTE | 2018-07-22 22:16 | PDOC ---
History of Present Illness - General Chief Complaint: SIRS, Suspected/Possible Stated Complaint: FEVER Time Seen by Provider: 07/22/18 21:22 - History of Present Illness Initial Comments: 07/22/18 22:10 78 yo M with h/o nephrolithaisis s/p stent placement who p/w fever, vomiting. Patient with one day of NBNB emesis x 3, and fever x 1 day. Patient recently seen in outpt. Urology Dr. Simpson for UTI and vomiting today. Was on Nitrofurantoin x 1 day, and switched to Levofloxacin today after he developed vomiting today. Per patient at bedside patient with recent R sided stent removal yesterday 07-22-18) per , transurethral. Patient with increased drowsiness today. Patient denies PINA, vision change, palpitations, cough, wheezing, orthopena, PND , leg swelling/pain, CP, SOB, urinary complaints, hematuria, BPR, abdominal pain , diarrhea, constipation, lightheadedness, weakness, sensory changes. PMHx: as noted above ROS: as noted SHx: Denies Etoh, IVDA Allergies: NKDA Past History - Past Medical History Allergies/Adverse Reactions: Allergies Allergy/AdvReac Type Severity Reaction Status Date / Time No Known Drug Allergies Allergy Verified 07/05/18 08:34 Home Medications: Ambulatory Orders NK [No Known Home Medication] 07/02/18 Anemia: No Asthma: No Cancer: Yes (COLON CA, status post resection and chemo ) Cardiac Disorders: No CVA: No COPD: No CHF: No Dementia: No Diabetes: No GI Disorders: No Disorders: Yes (KIDNEY STONES W/ LITHOTRIPSY, BPH) HTN: No Hypercholesterolemia: No Liver Disease: No Seizures: No Thyroid Disease: No - Surgical History Abdominal Surgery: Yes (COLON RESECTION 2011) Appendectomy: Yes (AT AGE 18) Cardiac Surgery: No Cholecystectomy: No Lung Surgery: No Neurologic Surgery: No Orthopedic Surgery: No - Immunization History Immunization Up to Date: Yes - Suicide/Smoking/Psychosocial Hx Smoking Status: No Smoking History: Never smoked Have you smoked in the past 12 months: No Number of Cigarettes Smoked Daily: 0 Hx Alcohol Use: No Drug/Substance Use Hx: No Substance Use Type: None Hx Substance Use Treatment: No Review of Systems - Review of Systems Comments:: 07/22/18 22:15 GENERAL/CONSTITUTIONAL: + fever. No chills. HEAD, EYES, EARS, NOSE AND THROAT: No change in vision. No ear pain or discharge. No sore throat. CARDIOVASCULAR: No chest pain or shortness of breath RESPIRATORY: No cough, wheezing, or hemoptysis. GASTROINTESTINAL: + nausea, vomiting. No diarrhea or constipation. GENITOURINARY:+ Increased urinary incontinence. No dysuria. MUSCULOSKELETAL: No joint or muscle swelling or pain. No neck or back pain. SKIN: No rash NEUROLOGIC: No headache, vertigo, loss of consciousness, or change in strength/ sensation. ENDOCRINE: No increased thirst. No abnormal weight change HEMATOLOGIC/LYMPHATIC: No anemia, easy bleeding, or history of blood clots. ALLERGIC/IMMUNOLOGIC: No hives or skin allergy. *Physical Exam - Vital Signs Last Vital Signs Temp Pulse Resp BP Pulse Ox 102.8 F H 90 18 141/80 95 07/22/18 21:06 07/22/18 21:06 07/22/18 21:06 07/22/18 21:06 07/22/18 21:06 - Physical Exam Comments: 07/22/18 22:16 GENERAL: Awake, alert, and fully oriented, in no acute distress HEAD: No signs of trauma, normocephalic, atraumatic EYES: PERRLA, EOMI, sclera anicteric, conjunctiva clear ENT: Auricles normal inspection, hearing grossly normal, nares patent, oropharynx clear without exudates. Moist mucosa NECK: Normal ROM, supple, no lymphadenopathy, JVD, or masses LUNGS: No distress, speaks full sentences, clear to auscultation bilaterally HEART: Regular rate and rhythm, normal S1 and S2, no murmurs, rubs or gallops, peripheral pulses normal and equal bilaterally. ABDOMEN: + Mild suprapubic ttp. Soft, NDS, normoactive bowel sounds. No guarding, no rebound. No masses. Neg CVA ttp. EXTREMITIES : Normal inspection, Normal range of motion, no edema. No clubbing or cyanosis. NEUROLOGICAL: Cranial nerves II through XII grossly intact. Normal speech, normal gait, no focal sensorimotor deficits SKIN: Warm, Dry, normal turgor, no rashes or lesions noted ABDOMEN: Soft, nontender, normoactive bowel sounds. No guarding, no rebound. No masses EXTREMITIES : Normal inspection, Normal range of motion, no edema. No clubbing or cyanosis. ED Treatment Course - LABORATORY CBC & Chemistry Diagram: 07/22/18 21:54 07/22/18 21:54 Medical Decision Making - Medical Decision Making 07/22/18 22:14 78 yo M with h/o nephrolithaisis s/p stent placement who p/w fever, vomiting. Temp 102.8, Vitals otherwise wnl, AF, A&Ox3. Physical exam with mild suprapubic ttp, absent CVA ttp. Will consider lower UTI, obstructive uropathy, pylenoephritis. ACS/LA r/o. Will assess for other infecitus causes of symptoms. Will provide IVF resuscitation and antibiotic control. Ed Course: NS, Tylenol 07/22/18 22:28 WBC: 14.1 07/22/18 23:01 BUN/Cr: 28/1.8 07/23/18 01:18 RENAL U/S: R RENAL SCARRING W/OUT HYDRONEPHROSIS 07/23/18 01:28 Ampicillin for enterococcus UTI 07/23/18 01:34 Laboratory Tests 07/23/18 01:00 Urine Color Yellow Urine Blood 2+ H Urine Nitrite Negative Urine Bilirubin Negative Ur Leukocyte Esterase 2+ H Urine WBC (Auto) 34 Urine RBC (Auto) 19 07/23/18 01:[address] Collazo by dr. Cardenas Admit for sepsis 2/2 UTI, fever, elevated WBC *DC/Admit/Observation/Transfer Diagnosis at time of Disposition: Systemic inflammatory response syndrome (SIRS) UTI (urinary tract infection) Qualifiers: Urinary tract infection type: site unspecified Hematuria presence: without hematuria Qualified Code(s): N39.0 - Urinary tract infection, site not specified Sepsis Qualifiers: Sepsis type: sepsis due to unspecified organism Qualified Code(s): A41.9 - Sepsis, unspecified organism - Discharge Dispostion Decision to Admit order: Yes - Referrals Referrals: Eric Morales MD [Primary Care Provider] - - Patient Instructions - Post Discharge Activity
[2018-07-22 22:24] LABS: BASO % 0.5 % (0-2.0); EOS % 1.2 % (0-4.5); HEMATOCRIT 32.9 % (35.4-49); HEMOGLOBIN 10.9 GM/dL (11.7-16.9); LYMPH % 3.2 % (8-40); MCH 31.5 pg (25.7-33.7); MCHC 33.2 g/dl (32.0-35.9); MEAN CELL VOLUME 94.8 fl (80-96); MEAN PLT VOLUME 7.5 fl (7.5-11.1); MONO % 6.9 % (3.8-10.2); NEUT % 88.2 % (42.8-82.8); PLATELET COUNT 312 K/MM3 (134-434); RBC 3.47 M/mm3 (4.00-5.60); RDW 15.3 % (11.9-15.9); WHITE BLOOD COUNT 14.1 K/mm3 (4.0-10.0)
[2018-07-22] MEDS ORDERED: SODIUM CHLORIDE IV ONE (22:29)
--- NOTE | 2018-07-22 22:48 | PDOC ---
Documentation entered by Nick Perez SCRIBE, acting as scribe for Clari Cardenas DO. Clari Cardenas DO: This documentation has been prepared by the Chris wang Nirvannie, SCRIBE, under my direction and personally reviewed by me in its entirety. I confirm that the documentation accurately reflects all work, treatment, procedures, and medical decision making performed by me. Attending Attestation - Resident Resident Name: Kemal Anna - ED Attending Attestation I have performed the following: I have examined & evaluated the patient, The case was reviewed & discussed with the resident, I agree w/resident's findings & plan - HPI HPI: 07/22/18 22:38 The patient is a 78 year old male, with a significant past medical history of nephrolithiasis (s/p stenting), who presents to the emergency department with, 1 day of fever and nausea with 3 episodes of NBNB emesis. Patient was recently being treated on Bactrim for a UTI which he took for a day but, was switched to Levofloxacin after he developed vomiting. He notes hematuria approximately 2 days ago which has since resolved. Patient endorses the onset of increased tiredness, prompting his arrival to the ED. He denies any recent chest pain or shortness of breath. Allergies: NKDA Primary Care Physician: Dr. Morales Urologist: Dr. Colon - Physicial Exam PE: 07/22/18 22:38 Constitutional: +Hot to touch. Awake, alert, oriented. No acute distress. Head: Normocephalic. Atraumatic Eyes: PERRL. EOMI. Conjunctivae are not pale. ENT: Mucous membranes are moist and intact. Posterior pharynx without exudates or erythema. Uvula midline. Neck: Supple. Full ROM. No lymphadenopathy. Cardiovascular: Regular rate. Regular rhythm. S1, S2 regular. Distal pulses are 2+ and symmetric. Pulmonary/Chest: No evidence of respiratory distress. Clear to auscultation bilaterally No wheezing, rales or rhonchi. Abdominal: Soft and non-distended. There is no tenderness. No rebound, guarding or rigidity. No organomegaly. No palpable masses. Good bowel sounds. Back: No CVA tenderness. Musculoskeletal: +Trace blt LE edema. No cyanosis. No clubbing. Full range of motion in all extremities. No calf tenderness. Radial/pedal pulses are intact and 2+ bilaterally Skin: Skin is warm and dry. No petechiae. No purpura. Neurological: Alert and oriented to person, place, and time. Cranial nerves II -XII are grossly intact. Normal speech. Strength is grossly symmetric. No sensory deficits. Psychiatric: Good eye contact. Normal interaction, affect and behavior. - Medical Decision Making 07/22/18 22:05 I, Dr. Clari Cardenas, DO, attest that this document has been prepared under my direction and personally reviewed by me in its entirety. I further attest, that it accurately reflects all work, treatment, procedures and medical decision -making performed by me. 07/22/18 22:47 78yo male with hx of ureteral stents with hematuria on thursday and uti -started on macrobid thursday-had n/v and switched to levaquin today by Dr. Lorenza Narvaez -pt with fever today -denies dysuria -no flank ttp -will send labs, cultures -suspect uti causing fever -will send ua/ucx -will start iv tylneol, ivf hydration, will monitor and reassess EXAM: KIDNEY / RENAL US HISTORY: Sepsis COMPARISON: None. FINDINGS: Right kidney is 9.7 cm in length and demonstrates upper pole scarring without stones or hydronephrosis. Left kidney is 10.3 cm in length and appears normal. IMPRESSION: Right renal scarring without hydronephrosis. Read by: George Carroll MD 07/23/18 01:24 elevated wbc pending ua will start iv abx 07/23/18 01:26 prior culture enterococcus sensitive to ampicillin 07/23/18 01:33 pt was on macrobid and levaquin as an outpt now with fever, nausea, still with uti will admit for iv abx had stent removed yesterday by Dr. Graham 07/23/18 01:33 microblog sent to [facility] for admission 07/23/18 01:49 case discussed with [facility] who accepts pt to service Heart Score/ECG Review - ECG Intrepretation Comment:: 07/23/18 01:47 sinus at 86, L axis deviation, no acute st/t wave findings
[2018-07-22 22:50] LABS: ALBUMIN 2.4 g/dl (3.4-5.0); ALK PHOS 70 U/L (45-117); ANION GAP 8 MMOL/L (8-16); BILIRUBIN,TOTAL 0.5 mg/dL (0.2-1); BLOOD UREA NITROGEN 28 mg/dL (7-18); CALCIUM 8.5 mg/dL (8.5-10.1); CHLORIDE 102 mmol/L (98-107); CO2 26 mmol/L (21-32); CREATININE 1.8 mg/dL (0.55-1.3); GLUCOSE,RANDOM 108 mg/dL (74-106); POTASSIUM 4.5 mmol/L (3.5-5.1); SGOT/AST 17 U/L (15-37); SGPT/ALT 26 U/L (13-61); SODIUM 136 mmol/L (136-145)
[2018-07-23] MEDS ORDERED: ONDANSETRON 4 MG/2 ML VIAL ONE (00:16)
[2018-07-23] MEDS ORDERED: ACETAMINOPHEN INJECTION 100 ML IVPB ONE (00:16)
[2018-07-23] MEDS ORDERED: FAMOTIDINE 20 MG/50 ML IVPB 20 MG/50 ML MG IVPB ONE (00:16)
[2018-07-23 01:17] LABS: PH,URINE 5.5 (5.0-8.0); URINE APPEARANCE CLEAR; URINE BACTERIA 1.4 /hpf (NEGATIVE); URINE BILIRUBIN NEGATIVE (NEGATIVE); URINE CASTS 2 /lpf (0-8); URINE COLOR YELLOW; URINE GLUCOSE (UA) NEGATIVE (NEGATIVE); URINE KETONE NEGATIVE (NEGATIVE); URINE LEUK ESTERASE 2+ (NEGATIVE); URINE NITRITE NEGATIVE (NEGATIVE); URINE PROTEIN TRACE (NEGATIVE); URINE RBC 19 /hpf (0-4); URINE UROBILINOGEN 0.2 mg/dL (0.2-1.0); URINE WBC 34 /hpf (0-5)
[2018-07-23] MEDS ORDERED: AMPICILLIN - 1 GM in SODIUM CHLORIDE 100 ML IVPB ONE (01:26)
[2018-07-23] MEDS ORDERED: AMPICILLIN SODIUM 1 GM VIAL ONE (02:22)
--- NOTE | 2018-07-23 02:47 | PN ---
Teaching Attending Note Name of Resident: Brodie Villanueva ATTENDING PHYSICIAN STATEMENT I saw and evaluated the patient. I reviewed the resident's note and discussed the case with the resident. I agree with the resident's findings and plan as documented. SUBJECTIVE: Patient is a 78 year old man with a PMH of nephrolithiasis (s/p bilateral ureteral stenting), prior lithotripsy, multiple UTIs and BPH who presents to the ER with, 1 day of fever and nausea with 3 episodes of NBNB emesis. Patient was recently being treated on Bactrim for a UTI which he took for a day but, was switched to Levofloxacin after he developed vomiting. Says his symptoms started after the right ureteral stent was removed 2 days ago. He notes hematuria approximately 2 days ago which has since resolved. Patient feels tired but denies any recent chest pain, shortness of breath, headache, photophobia or change in bowel habit. OBJECTIVE: Alert but weak Vital Signs Period Temp Pulse Resp BP Sys/De La Torre Pulse Ox Last 24 Hr 99.3 F-102.8 F 70-90 18-18 102-141/48-80 95-100 HEENT: No Jaundice, eye redness or discharge, PERRLA, EOMI. Normocephalic, atraumatic. External ears are normal and hearing is grossly intact. No nasal discharge. Neck: Supple, nontender. No palpable adenopathy or thyromegaly. No JVD Chest: Good effort. Clear to auscultation and percussion. Heart: Regular. No S3, rub or murmur Abdomen: Not distended, soft, nontender and no HSM. No rebound or guarding. Normal bowel sounds. Ext: Peripheral pulses intact. No leg edema. Skin: Warm and dry. No petechiae, rash or ecchymosis. Neuro: Alert. Oriented x3. CN 2-12 grossly intact. Sensation grossly intact in all four extremities and DTR are symmetric. Psych: Appropriate mood and affect. Good insight. Current Medications Generic Name Dose Route Start Last Admin Trade Name Freq PRN Reason Stop Dose Admin Ampicillin Sodium 1 gm/ Sodium 100 mls @ 200 mls/hr 07/23/18 04:30 Chloride IVPB Q8H-IV RAIN Protocol Ceftriaxone Sodium 1 gm/ 50 mls @ 200 mls/hr 07/23/18 10:00 Dextrose IVPB 07/23/18 10:14 ONCE ONE Protocol Lactated Ringer's 1,000 ml in 1,000 mls @ 50 mls/hr 07/23/18 04:45 Lactated Ringers Solution IV ASDIR [facility] Home Medications Medication Instructions Recorded NK [No Known Home Medication] 07/02/18 Abnormal Lab Results 07/22/18 07/22/18 07/23/18 21:54 21:54 01:00 WBC 14.1 H RBC 3.47 L Hgb 10.9 L Hct 32.9 L Absolute Neuts (auto) 12.4 H Neutrophils % 88.2 H Lymphocytes % 3.2 L D BUN 28 H Creatinine 1.8 H Random Glucose 108 H Albumin 2.4 L Urine Blood 2+ H Ur Leukocyte Esterase 2+ H ASSESSMENT AND PLAN: 1. Sepsis due to UTI - Not improved on outpatient oral antibiotics. Urine grew Enterococcus Faecalis on 05/25/18 sensitive to ampicillin. Will treat with IV ampicillin and rocephin pending culture. Continue IV fluids. Got IV tylenol in the ER. Consult his urologist and ID. 2. Severe Hypoalbuminemia - Possibly due to combined effects of malnutrition and inflammation associated with comorbid chronic conditions. Will ensure adequate dietary protein intake and also consult career center advisor. 3. CKD - Has risk factors. Sonogram showed right renal pole scarring but no calculus or hydronephrosis. Will consult nephrology and avoid nephrotoxic agents such as NSAIDS, aminoglycosides, contrast dyes and certain Alternative medicine products. 4. Anemia - May be partly due to CKD. Do basic anemia work up including serial stool guaiacs, reticulocyte count and iron studies. 5. Obesity Counseled on the risks associated with obesity. Will provide patient all the necessary assistance, counseling and positive reinforcement to facilitate weight loss. Consult career center advisor. 6. DVT prophylaxis - SCD, TEDs, Early ambulation. Avoid heparin until hematuria resolves. 7. Advance directives - Full code
--- NOTE | 2018-07-23 03:29 | HP ---
CHIEF COMPLAINT: Fever and Chills PCP: Dr Morales HISTORY OF PRESENT ILLNESS: Pt is a 78 y/o gentleman with a significant past medical history of nephrolithiasis and colonic polyps who presented to [facility] due to fever and chills for 1 day. Pt endorses visiting his Urologist on Thursday to have his right stent removed; pt had stent insertion s/p ESWL on July 05, 2018. Pt was placed on antibiotics after stent removal. Pt cannot recall if placed on Bactrim or Macrobid. Pt subsequently took the medication after procedure but developed fever, rigors, nausea, and vomiting. Levaquin was subsequently ordered and sent to pt' pharmacy. Pt states he was feeling very ill and came to ED before picking up medication. Denies chest pain, shortness of breath, or lightheadedness. PMH- Nephrolithiasis, Colonic polyps SurgHx- None FH- [place] NKDA ER course was notable for: (1) WBC 14.1 (2) Cr 1.8 (3) Ampicillin HOME MEDICATIONS: Home Medications Medication Instructions Recorded NK [No Known Home Medication] 07/02/18 REVIEW OF SYSTEMS CONSTITUTIONAL: PRESENT fever, chills, diaphoresis, generalized weakness, malaise HEENT: Absent: rhinorrhea, nasal congestion, throat pain, throat swelling, difficulty swallowing, mouth swelling, ear pain, eye pain, visual changes CARDIOVASCULAR: Absent: chest pain, syncope, palpitations, irregular heart rate, lightheadedness , peripheral edema RESPIRATORY: Absent: cough, shortness of breath, dyspnea with exertion, orthopnea, wheezing, stridor, hemoptysis GASTROINTESTINAL: Absent: abdominal pain, abdominal distension, nausea, vomiting, diarrhea, constipation, melena, hematochezia GENITOURINARY: Absent: dysuria, frequency, urgency, hesitancy, hematuria, flank pain, genital pain MUSCULOSKELETAL: Absent: myalgia, arthralgia, joint swelling, back pain, neck pain SKIN: Absent: rash, itching, pallor HEMATOLOGIC/IMMUNOLOGIC: Absent: easy bleeding, easy bruising, lymphadenopathy, frequent infections ENDOCRINE: Absent: unexplained weight gain, unexplained weight loss, heat intolerance, cold intolerance NEUROLOGIC: Absent: headache, focal weakness or paresthesias, dizziness, unsteady gait, seizure, mental status changes, bladder or bowel incontinence PSYCHIATRIC: Absent: anxiety, depression, suicidal or homicidal ideation, hallucinations. PHYSICAL EXAMINATION Vital Signs - 24 hr 07/22/18 07/23/18 07/23/18 21:06 02:05 02:27 Temperature 102.8 F H 99.7 F H Pulse Rate 90 Pulse Rate [ 79 Right Radial] Respiratory 18 18 Rate Blood Pressure 141/80 Blood Pressure 103/48 L [Left Arm] O2 Sat by Pulse 95 100 95 Oximetry (%) 07/23/18 02:58 Temperature 99.3 F Pulse Rate 70 Pulse Rate [ Right Radial] Respiratory 18 Rate Blood Pressure 102/62 Blood Pressure [Left Arm] O2 Sat by Pulse 98 Oximetry (%) GENERAL: AAOx3, NAD HEAD: Normal with no signs of trauma. EYES: EOMI Sclera Clear EARS, NOSE, THROAT: MMM NECK: Supple LUNGS: CTAB HEART: RRR NL S1S2 ABDOMEN: No Tenderness in suprapubic area. BACK: No CVA tenderness. UPPER EXTREMITIES: 2+ pulses, warm, well-perfused. No cyanosis. No clubbing. No peripheral edema. LOWER EXTREMITIES: No CCE NEUROLOGICAL: Cranial nerves II-XII intact. Normal speech. PSYCHIATRIC: Cooperative. Good eye contact. Appropriate mood and affect. SKIN: Warm, dry, normal turgor, no rashes or lesions noted, normal capillary refill. Laboratory Results - last 24 hr 07/22/18 07/22/18 07/22/18 21:54 21:54 21:54 WBC 14.1 H RBC 3.47 L Hgb 10.9 L Hct 32.9 L MCV 94.8 MCH 31.5 MCHC 33.2 RDW 15.3 Plt Count 312 MPV 7.5 D Absolute Neuts (auto) 12.4 H Neutrophils % 88.2 H Lymphocytes % 3.2 L D Monocytes % 6.9 D Eosinophils % 1.2 D Basophils % 0.5 Nucleated RBC % 0 Sodium 136 Potassium 4.5 Chloride 102 Carbon Dioxide 26 Anion Gap 8 BUN 28 H Creatinine 1.8 H Creat Clearance w eGFR 36.87 Random Glucose 108 H Lactic Acid 1.3 Calcium 8.5 Total Bilirubin 0.5 AST 17 ALT 26 Alkaline Phosphatase 70 Total Protein 7.0 Albumin 2.4 L Urine Color Urine Appearance Urine pH Ur Specific [place] Urine Protein Urine Glucose (UA) Urine Ketones Urine Blood Urine Nitrite Urine Bilirubin Urine Urobilinogen Ur Leukocyte Esterase Urine WBC (Auto) Urine RBC (Auto) Urine Casts (Auto) U Epithel Cells (Auto) Urine Bacteria (Auto) 07/23/18 01:00 WBC RBC Hgb Hct MCV MCH MCHC RDW Plt Count MPV Absolute Neuts (auto) Neutrophils % Lymphocytes % Monocytes % Eosinophils % Basophils % Nucleated RBC % Sodium Potassium Chloride Carbon Dioxide Anion Gap BUN Creatinine Creat Clearance w eGFR Random Glucose Lactic Acid Calcium Total Bilirubin AST ALT Alkaline Phosphatase Total Protein Albumin Urine Color Yellow Urine Appearance Clear Urine pH 5.5 Ur Specific [place] 1.013 Urine Protein Trace Urine Glucose (UA) Negative Urine Ketones Negative Urine Blood 2+ H Urine Nitrite Negative Urine Bilirubin Negative Urine Urobilinogen 0.2 Ur Leukocyte Esterase 2+ H Urine WBC (Auto) 34 Urine RBC (Auto) 19 Urine Casts (Auto) 2 U Epithel Cells (Auto) 3.0 Urine Bacteria (Auto) 1.4 ASSESSMENT/PLAN: Pt is a 78 y/o gentleman with a significant past medical history of nephrolithiasis and colonic polyps who presented to [facility] due to fever and chills for 1 day. #Urinary Tract Infection -Pt recent Instrumentation with Stent Removal -Leuk Est 2+ 34 WBC. Urine Culture pending. Previous UCx revealed E. Faecalis sensitive to Ampicillin -Continue Ampicillin renally dosed and Rocephin 1 gm. RENAL U/S: R RENAL SCARRING W/OUT HYDRONEPHROSIS -Urology Consult -ID Consult #FEN LR@50cc/hr Monitor Electrolytes Regular Diet #DVT ppx: HEPSQTID #Dispo: Med-Surg Visit type - Emergency Visit Emergency Visit: Yes ED Registration Date: 07/23/18 Care time: The patient presented to the Emergency Department on the above date and was hospitalized for further evaluation of their emergent condition. - New Patient This patient is new to me today: Yes Date on this admission: 07/23/18 - Critical Care Critical Care patient: No
[2018-07-23] MEDS ORDERED: LACTATED RINGERS SOLUTION 1,000 ML/1,000 ML INFUS.BAG IV SCH (04:45)
[2018-07-23 06:20] LABS: BASO % 0.4 % (0-2.0); EOS % 0.6 % (0-4.5); HEMATOCRIT 30.1 % (35.4-49); LYMPH % 6.5 % (8-40); MCH 31.2 pg (25.7-33.7); MCHC 33.2 g/dl (32.0-35.9); MEAN CELL VOLUME 94.1 fl (80-96); MEAN PLT VOLUME 7.3 fl (7.5-11.1); MONO % 6.8 % (3.8-10.2); NEUT % 85.7 % (42.8-82.8); PLATELET COUNT 284 K/MM3 (134-434); RBC 3.19 M/mm3 (4.00-5.60); RDW 15.2 % (11.9-15.9); WHITE BLOOD COUNT 13.4 K/mm3 (4.0-10.0)
[2018-07-23 06:41] LABS: INR 1.55 (0.83-1.09); PROTHROMBIN TIME (PATIENT) 18.4 SEC (9.7-13.0)
[2018-07-23 06:43] LABS: ACTIVATED PTT 30.7 SECONDS (25.2-36.5)
[2018-07-23 06:46] LABS: ALBUMIN 2.3 g/dl (3.4-5.0); ALK PHOS 60 U/L (45-117); ANION GAP 7 MMOL/L (8-16); BILIRUBIN,TOTAL 0.4 mg/dL (0.2-1); BLOOD UREA NITROGEN 26 mg/dL (7-18); CALCIUM 8.1 mg/dL (8.5-10.1); CHLORIDE 104 mmol/L (98-107); CO2 27 mmol/L (21-32); CREATININE 1.8 mg/dL (0.55-1.3); GLUCOSE,RANDOM 113 mg/dL (74-106); MAGNESIUM 1.9 mg/dL (1.8-2.4); PHOSPHOROUS 4.1 mg/dL (2.5-4.9); POTASSIUM 4.8 mmol/L (3.5-5.1); SGOT/AST 15 U/L (15-37); SGPT/ALT 23 U/L (13-61); SODIUM 138 mmol/L (136-145); TOT PROT 6.2 g/dl (6.4-8.2)
--- NOTE | 2018-07-23 07:46 | HOSP ---
Subjective - Review of Symptoms Subjective: currently asymptomatic. state he felt well since waking up this AM. no more symptoms. had similar episode in the past when he had stent removed developed UTI. only took macrobid x1day and never took the levaquin because he felt too sick and came to the hospital. denies CP, SOB, fever, chills, N/V/C/D stents placed about a month ago Current Medications Generic Name Dose Route Start Last Admin Trade Name Freq PRN Reason Stop Dose Admin Ampicillin Sodium 1 gm/ Sodium 100 mls @ 200 mls/hr 07/23/18 04:30 Chloride IVPB Q8H-IV RAIN Protocol Ceftriaxone Sodium 1 gm/ 50 mls @ 200 mls/hr 07/23/18 10:00 Dextrose IVPB 07/23/18 10:14 ONCE ONE Protocol Lactated Ringer's 1,000 ml in 1,000 mls @ 50 mls/hr 07/23/18 04:45 Lactated Ringers Solution IV ASDIR RAIN Last Vital Signs Temp Pulse Resp BP Pulse Ox 99.3 F 70 18 102/62 98 07/23/18 02:58 07/23/18 02:58 07/23/18 02:58 07/23/18 02:58 07/23/18 02:58 General NAD CV S1 S2 RRR no murmur/rub/gallop Lungs CTA B/L no wheezing/rales/rhonchi Abdomen soft NT/ND no CVA tenderness Extremities no pedal edema CBCD WBC 13.4 K/mm3 (4.0-10.0) H 07/23/18 05:30 RBC 3.19 M/mm3 (4.00-5.60) L 07/23/18 05:30 Hgb 10.0 GM/dL (11.7-16.9) L 07/23/18 05:30 Hct 30.1 % (35.4-49) L 07/23/18 05:30 MCV 94.1 fl (80-96) 07/23/18 05:30 MCHC 33.2 g/dl (32.0-35.9) 07/23/18 05:30 RDW 15.2 % (11.9-15.9) 07/23/18 05:30 Plt Count 284 K/MM3 (134-434) 07/23/18 05:30 MPV 7.3 fl (7.5-11.1) L 07/23/18 05:30 CMP Sodium 138 mmol/L (136-145) 07/23/18 05:30 Potassium 4.8 mmol/L (3.5-5.1) 07/23/18 05:30 Chloride 104 mmol/L (98-107) 07/23/18 05:30 Carbon Dioxide 27 mmol/L (21-32) 07/23/18 05:30 Anion Gap 7 MMOL/L (8-16) L 07/23/18 05:30 BUN 26 mg/dL (7-18) H 07/23/18 05:30 Creatinine 1.8 mg/dL (0.55-1.3) H 07/23/18 05:30 Creat Clearance w eGFR 36.87 (>60) 07/23/18 05:30 Calcium 8.1 mg/dL (8.5-10.1) L 07/23/18 05:30 Total Bilirubin 0.4 mg/dL (0.2-1) 07/23/18 05:30 AST 15 U/L (15-37) 07/23/18 05:30 ALT 23 U/L (13-61) 07/23/18 05:30 Alkaline Phosphatase 60 U/L (45-117) 07/23/18 05:30 Total Protein 6.2 g/dl (6.4-8.2) L 07/23/18 05:30 Albumin 2.3 g/dl (3.4-5.0) L 07/23/18 05:30 assessment and Plan 78yo M with PMH renal stones s/p renal stents, BPH with recent renal stent removal and empirically treated with macrobid however did not tolerate and switched to levaquin also had recent L stent removal 2 days ago presents with worsening nausea and vomiting 1. Sepsis due to UTI- Tm 102.8 with leukocytosis. switched to ampicillin and ceftriaxone based on recent cx. concern for infected stent. urology consulted to evaluate. renal u/s pending. ID consulted and will d/w with them abx selection as may need to cover more broadly given recent urological procedure. can d/c IVF. advance diet. f/u cx 2. CKD- at baseline. 3. nephrolithasis- nothing suggestive of stones at this time 4. BPH-will need to verify home list 5. DVT ppx- will start hep sq Physical Examination Vital Signs: Vital Signs Temperature 99.3 F 07/23/18 02:58 Pulse Rate 70 07/23/18 02:58 Respiratory Rate 18 07/23/18 02:58 Blood Pressure 102/62 07/23/18 02:58 O2 Sat by Pulse Oximetry (%) 98 07/23/18 02:58 Labs: CBC, BMP 07/23/18 05:30 07/23/18 05:30
--- NOTE | 2018-07-23 08:28 | CONSULT ---
Consult - text type - Consultation Consultation Note: CC: uti hpi: Patient is a 78 year old male with history of bilateral urolithiasis s/p bilateral stents and ESWL. Patient had his stent on the left removed int the office on Thursday and developed a low grade fever. The patient had a sonogram in the office which was negative for hydro or significant stones. The patient did not have symtoms of renal colic and UA was leukocyte esterase neative. Patient was switched from macrobid to levaquin yesterday however did not feel well and presented to the ER. VSS Tmax 102.8/T99.7 abd-soft, non-tender; no CVAT genitalia-nl phallus/testes rectal-3+ prostate without fluctuance imp uti urolithiasis plan continue antibiotics
[2018-07-23] MEDS ORDERED: CEFTRIAXONE 1 GM in DEXTROSE 5%-WATER - 50 ML IVPB ONE (10:00)
[2018-07-23] MEDS: AMPICILLIN - 1 GM in SODIUM CHLORIDE 100 ML IVPB SCH ×2 (10:30→21:24)
[2018-07-23] MEDS ORDERED: DEXTROSE 5%-WATER - 50 ML IVPB ONE ×2 (10:45→12:39)
[2018-07-23] MEDS ORDERED: cefTRIAXone SODIUM 1 GM VIAL ONE (10:45)
--- NOTE | 2018-07-23 11:20 | EKG ---
Test Reason : Blood Pressure : / mmHG Vent. Rate : 086 BPM Atrial Rate : 086 BPM P-R Int : 142 ms QRS Dur : 082 ms QT Int : 370 ms P-R-T Axes : 014 -59 -05 degrees QTc Int : 442 ms SINUS RHYTHM WITH PREMATURE ATRIAL COMPLEXES LEFT AXIS DEVIATION ABNORMAL ECG WHEN COMPARED WITH ECG OF 25-MAY-2018 09:11, NO SIGNIFICANT CHANGE WAS FOUND Confirmed by TYRONE CONTEH MD ([id number]) on 07/23/2018 11:19:51 AM Referred By: Confirmed By:TYRONE CONTEH MD
[2018-07-23] MEDS ORDERED: VANCOMYCIN 1 GM PREMIX - 1 GM/200 ML BAG IVPB ONE (11:36)
--- NOTE | 2018-07-23 11:42 | PN ---
Progress Note (short form) - Note Progress Note: ID CONSULT DICTATED HIGH GRADE FEVER/ LEUKOCYTOSIS S/P URETERAL STENT REMOVAL HX NEPHROLITHIASIS PENDING C/S EMPIRIC COVERAGE ZOSYN + STAT DOSE VANCOMYCIN
[2018-07-23] MEDS ORDERED: PIPERACILLIN/TAZOBACTAM 2.25 GM VIAL IVPB ONE ×2 (12:39→17:50)
[2018-07-23] MEDS ORDERED: PT OWN MED DRAWER 7, Y5N ONE (12:44)
[2018-07-23] MEDS: PIPERACILLIN/TAZOB 2.25 GM 2.25 GM in DEXTROSE 5%-WATER - 50 ML IVPB SCH ×2 (12:45→17:56)
--- NOTE | 2018-07-23 12:45 | CONS ---
DATE OF CONSULTATION: DATE OF DICTATION: 07/23/2018 INFECTIOUS DISEASE CONSULTATION The patient is a 78-year-old male with a complicated urological history evaluated for possible sepsis. The patient has had a history of recurrent nephrolithiasis and obstructive uropathy requiring placement of ureteral stents. His problems date back to March of this year. Most recently he was seen as an outpatient for removal of one of the ureteral stents. He presented to his urologist on July 21, 2018, at which time the left ureteral stent was removed. He was prescribed an oral antibiotic (nitrofurantoin). He took 1 dose and developed onset of nausea, vomiting, high-grade fever to 102, and profound weakness. He followed up with his urologist. He was evaluated. Cultures and blood work were obtained. He was prescribed Levaquin. Despite the antibiotics, he reports persistent high-grade fever, nausea, and profound weakness. He presented to the emergency room where he was noted to have a fever of 102.8. Cultures were obtained. He was empirically treated with ceftriaxone and ampicillin. The patient's major complaint is fever and weakness. He denies any suprapubic or flank pain. No dysuria or hematuria. A sonogram was performed and was negative for hydronephrosis. The patient has had a history of recurrent treatment for nephrolithiasis but dating back to March of this year requiring ureteral stents and endoscopic removal of stones. On review of his previous cultures, he has had 1 urine culture positive for enterococcus. However, cultures otherwise have been unrevealing. After his last hospital admission, he was seen in our office at which time he had completed a course of Augmentin for urinary tract infection. He was asymptomatic at the time and had remained off antibiotics until his present admission. PAST MEDICAL HISTORY: Positive for bilateral nephrolithiasis, obstructive uropathy, status post ureteral stents, BPH, chronic kidney disease, history of colon polyps, status post bowel resection. ALLERGIES: No known allergies. MEDICATIONS: At the present time include Tylenol, ampicillin, ceftriaxone, Zofran, Pepcid. SOCIAL HISTORY: He lives at home with his significant other. 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 However, has been unable to work because of his recent illness. Nonsmoker. Nondrinker. SYSTEM REVIEW: Neurologic: No loss of consciousness, seizure activity, focal weakness. Cardiac: Negative chest pain or palpitations. Respiratory: Negative cough or sputum production. Gastrointestinal: Positive for nausea, vomiting. No diarrhea. Genitourinary: As per HPI. LABORATORY DATA: White count 13.4, and 85 neutrophils, 6 lymphocytes, 6 monocytes, hematocrit 30.1, platelets 284. BUN 26, creatinine 1.8. Urinalysis 34 white cells. Cultures are pending. Renal sonogram negative for hydronephrosis. PHYSICAL EXAMINATION: General: He is awake and alert. He is supine in bed. He appears weak. He is not acutely toxic appearing. Vital Signs: Temperature 99.3, blood pressure 102/62, pulse 70 regular, respirations 18 per minute, T-max 102.8. Eyes: Sclerae anicteric. Heart: Sounds S1, S2. Lungs: Clear. Abdomen: Soft. No suprapubic or flank tenderness. Extremities: Negative for edema. IMPRESSION: 1. High-grade fever, leukocytosis, status post ureteral stent removal, rule out sepsis secondary to genitourinary focus. 2. History of nephrolithiasis and obstructive uropathy status post ureteral stents. 3. Chronic kidney disease. RECOMMENDATIONS: Pending cultures. Empiric antibiotic coverage for possible healthcare-acquired urinary tract pathogens with Zosyn and vancomycin adjusted for his renal insufficiency. We will give Zosyn 2.25 g IV piggyback every 8 hours, vancomycin 1 g IV piggyback STAT dose. Further recommendations pending cultures. Will follow. Thank you for the kind referral. TYRONE RUIZ M.D. [id number]
[2018-07-23] MEDS: HEPARIN NA (PORCINE) 5,000 UNITS/ML 1ML VIAL SQ SCH ×2 (14:38→21:24)
[2018-07-23] MEDS ORDERED: DEXTROSE 5%-WATER - 100 ML IVPB ONE (17:50)
[2018-07-24] MEDS ORDERED: DEXTROSE 5% IVPB ONE (01:25)
[2018-07-24] MEDS ORDERED: PIPERACILLIN/TAZOBACTAM 2.25 GM VIAL IVPB ONE ×3 (01:25→18:33)
[2018-07-24] MEDS ORDERED: WATER IVPB ONE (01:25)
[2018-07-24] MEDS: PIPERACILLIN/TAZOB 2.25 GM 2.25 GM in DEXTROSE 5%-WATER - 50 ML IVPB SCH ×3 (01:30→18:37)
[2018-07-24] MEDS ORDERED: PIPERACILLIN/TAZOB 2.25 GM 2.25 GM in DEXTROSE 5%-WATER - 50 ML IVPB ONE (01:45)
[2018-07-24] MEDS: HEPARIN NA (PORCINE) 5,000 UNITS/ML 1ML VIAL SQ SCH ×3 (06:19→21:10)
[2018-07-24] MEDS ORDERED: DEXTROSE 5%-WATER - 50 ML IVPB ONE ×2 (10:23→18:34)
--- NOTE | 2018-07-24 11:21 | PN ---
Physical Exam: SUBJECTIVE: Patient seen and examined He has no fever or chills no distress on abx OBJECTIVE: Vital Signs Period Temp Pulse Resp BP Sys/[place] Pulse Ox Last 24 Hr 98.2 F-99 F 66-69 18-20 101-122/51-64 97 GENERAL: The patient is awake, alert, and fully oriented, in no acute distress. HEAD: Normal with no signs of trauma. EYES: PERRL, extraocular movements intact, sclera anicteric, conjunctiva clear. No ptosis. ENT: Ears normal, nares patent, oropharynx clear without exudates, moist mucous membranes. NECK: Trachea midline, full range of motion, supple. LUNGS: Breath sounds equal, clear to auscultation bilaterally, no wheezes, no crackles, no accessory muscle use. HEART: Regular rate and rhythm, S1, S2 without murmur, rub or gallop. ABDOMEN: Soft, nontender, nondistended, normoactive bowel sounds, no guarding, no rebound, no hepatosplenomegaly, no masses. EXTREMITIES: 2+ pulses, warm, well-perfused, no edema. NEUROLOGICAL: Cranial nerves II through XII grossly intact. Normal speech, gait not observed. Laboratory Results - last 24 hr 07/24/18 07:00 Random Vancomycin 7.2 L Active Medications Generic Name Dose Route Start Last Admin Trade Name Freq PRN Reason Stop Dose Admin Heparin Sodium (Porcine) 5,000 unit 07/23/18 14:00 07/24/18 06:19 Heparin - SQ 5,000 unit TID RAIN Administration Piperacillin Sod/Tazobactam 50 mls @ 100 mls/hr 07/23/18 11:45 07/24/18 10:25 Sod 2.25 gm/ Dextrose IVPB 100 mls/hr Q8H-IV RAIN Administration Protocol ASSESSMENT/PLAN: 78yo M with PMH renal stones s/p renal stents, BPH with recent renal stent removal and empirically treated with macrobid however did not tolerate and switched to levaquin also had recent L stent removal 2 days ago presents with worsening nausea and vomiting Sepsis due to UTI- ultrasound is stable continue iv zosy urology plan Visit type - Emergency Visit Emergency Visit: Yes ED Registration Date: 07/23/18 Care time: The patient presented to the Emergency Department on the above date and was hospitalized for further evaluation of their emergent condition. - New Patient This patient is new to me today: Yes Date on this admission: 07/24/18 - Critical Care Critical Care patient: No - Discharge Referral Referred to [facility] No
[2018-07-25] MEDS ORDERED: DEXTROSE 5%-WATER - 50 ML IVPB ONE ×3 (01:21→17:12)
[2018-07-25] MEDS ORDERED: PIPERACILLIN/TAZOBACTAM 2.25 GM VIAL IVPB ONE ×3 (01:21→17:12)
[2018-07-25] MEDS: PIPERACILLIN/TAZOB 2.25 GM 2.25 GM in DEXTROSE 5%-WATER - 50 ML IVPB SCH ×3 (01:30→17:17)
[2018-07-25] MEDS: HEPARIN NA (PORCINE) 5,000 UNITS/ML 1ML VIAL SQ SCH ×3 (06:20→22:48)
--- NOTE | 2018-07-25 11:12 | PN ---
Progress Note (short form) - Note Progress Note: feels improved he reports he is having stent removed in am no further fevers Vital Signs Period Temp Pulse Resp BP Sys/[place] Pulse Ox Last 24 Hr 97.5 F-98.9 F 60-73 16-18 103-142/55-71 96 cor-rrr lungs clear abd soft,nt ext no edema ultrasound no hydronephrosis CBC, BMP 07/23/18 05:30 07/23/18 05:30 Microbiology 07/22/18 21:54 Blood - Peripheral Venous Blood Culture - Preliminary NO GROWTH OBTAINED AFTER 48 HOURS, INCUBATION TO CONTINUE FOR 3 DAYS. 07/22/18 21:54 Blood - Peripheral Venous Blood Culture - Preliminary NO GROWTH OBTAINED AFTER 48 HOURS, INCUBATION TO CONTINUE FOR 3 DAYS. 07/23/18 01:00 Urine - Urine Clean Catch Urine Culture - Final NO GROWTH OBTAINED Current Medications Heparin Sodium (Porcine) (Heparin -) 5,000 unit SQ TID RAIN Last Admin: 07/25/18 06:20 Dose: 5,000 unit Piperacillin Sod/Tazobactam (Sod 2.25 gm/ Dextrose) 50 mls @ 100 mls/hr IVPB Q8H-IV RAIN; Protocol Last Admin: 07/25/18 09:34 Dose: 100 mls/hr a/p fever after stent removal cultures negative but was on outpt antiibotics continue zosyn repeat labs in am renal insufficiency
--- NOTE | 2018-07-25 11:43 | PN ---
Physical Exam: SUBJECTIVE: Patient seen and examined no new change today no distress OBJECTIVE: Vital Signs Period Temp Pulse Resp BP Sys/[place] Pulse Ox Last 24 Hr 97.5 F-98.9 F 60-73 16-18 103-142/55-71 96 GENERAL: The patient is awake, alert, and fully oriented, in no acute distress. HEAD: Normal with no signs of trauma. EYES: PERRL, extraocular movements intact, sclera anicteric, conjunctiva clear. No ptosis. ENT: Ears normal, nares patent, oropharynx clear without exudates, moist mucous membranes. NECK: Trachea midline, full range of motion, supple. LUNGS: Breath sounds equal, clear to auscultation bilaterally, no wheezes, no crackles, no accessory muscle use. HEART: Regular rate and rhythm, S1, S2 without murmur, rub or gallop. ABDOMEN: Soft, nontender, nondistended, normoactive bowel sounds, no guarding, no rebound, no hepatosplenomegaly, no masses. EXTREMITIES: 2+ pulses, warm, well-perfused, no edema. NEUROLOGICAL: Cranial nerves II through XII grossly intact. Normal speech, gait not observed. PSYCH: Normal mood, normal affect. SKIN: Warm, dry, normal turgor, no rashes or lesions noted Active Medications Generic Name Dose Route Start Last Admin Trade Name Freq PRN Reason Stop Dose Admin Heparin Sodium (Porcine) 5,000 unit 07/23/18 14:00 07/25/18 06:20 Heparin - SQ 5,000 unit TID RAIN Administration Piperacillin Sod/Tazobactam 50 mls @ 100 mls/hr 07/23/18 11:45 07/25/18 09:34 Sod 2.25 gm/ Dextrose IVPB 100 mls/hr Q8H-IV RAIN Administration Protocol ASSESSMENT/PLAN: 78yo M with PMH renal stones s/p renal stents, BPH with recent renal stent removal and empirically treated with macrobid however did not tolerate and switched to levaquin also had recent L stent removal 2 days ago presents with worsening nausea and vomiting Sepsis due to UTI- ultrasound is stable continue iv zosy High creainine will repeat am advised him to drink plenty fluids Problem List - Problems (1) UTI (urinary tract infection) Assessment/Plan: 78yo M with PMH renal stones s/p renal stents, BPH with recent renal stent removal and empirically treated with macrobid however did not tolerate and switched to levaquin also had recent L stent removal 2 days ago presents with worsening nausea and vomiting Sepsis due to UTI- ultrasound is stable continue iv zosy seen by ID and advised to continue the zosyn Code(s): N39.0 - URINARY TRACT INFECTION, SITE NOT SPECIFIED Qualifiers: Urinary tract infection type: site unspecified Hematuria presence: without hematuria Qualified Code(s): N39.0 - Urinary tract infection, site not specified Visit type - Emergency Visit Emergency Visit: Yes ED Registration Date: 07/23/18 Care time: The patient presented to the Emergency Department on the above date and was hospitalized for further evaluation of their emergent condition. - New Patient This patient is new to me today: No - Critical Care Critical Care patient: No - Discharge Referral Referred to [facility] No
[2018-07-26] MEDS ORDERED: DEXTROSE 5%-WATER - 50 ML IVPB ONE ×2 (02:07→19:56)
[2018-07-26] MEDS ORDERED: PIPERACILLIN/TAZOBACTAM 2.25 GM VIAL IVPB ONE ×3 (02:07→19:56)
[2018-07-26] MEDS: PIPERACILLIN/TAZOB 2.25 GM 2.25 GM in DEXTROSE 5%-WATER - 50 ML IVPB SCH ×3 (02:19→20:02)
[2018-07-26] MEDS: HEPARIN NA (PORCINE) 5,000 UNITS/ML 1ML VIAL SQ SCH ×3 (05:57→21:51)
[2018-07-26 07:35] LABS: HEMATOCRIT 30.3 % (35.4-49); HEMOGLOBIN 10.3 GM/dL (11.7-16.9); MCHC 33.9 g/dl (32.0-35.9); MEAN CELL VOLUME 94.3 fl (80-96); MEAN PLT VOLUME 7.8 fl (7.5-11.1); PLATELET COUNT 296 K/MM3 (134-434); RBC 3.21 M/mm3 (4.00-5.60); RDW 15.1 % (11.9-15.9); WHITE BLOOD COUNT 7.9 K/mm3 (4.0-10.0)
[2018-07-26 07:57] LABS: ANION GAP 5 MMOL/L (8-16); BLOOD UREA NITROGEN 27 mg/dL (7-18); CALCIUM 8.8 mg/dL (8.5-10.1); CHLORIDE 108 mmol/L (98-107); CO2 28 mmol/L (21-32); CREATININE 1.9 mg/dL (0.55-1.3); GLUCOSE,RANDOM 83 mg/dL (74-106); POTASSIUM 4.8 mmol/L (3.5-5.1); SODIUM 140 mmol/L (136-145)
[2018-07-26] MEDS ORDERED: DEXTROSE 5%-WATER - 100 ML IVPB ONE (10:09)
[2018-07-26] MEDS ORDERED: TAMSULOSIN HCL 0.4 MG CAP PO ONE (14:46)
--- NOTE | 2018-07-26 14:52 | PN ---
Physical Exam: SUBJECTIVE: Patient seen and examined. Feels better. No fever, sweats, chills. No dysuria. OBJECTIVE: Vital Signs Period Temp Pulse Resp BP Sys/[place] Pulse Ox Last 24 Hr 97.5 F-98.1 F 56-69 18-18 112-129/63-80 96-97 GENERAL: The patient is awake, alert, and fully oriented, in no acute distress. LUNGS: Breath sounds equal, clear to auscultation bilaterally, no wheezes, no crackles, no accessory muscle use. HEART: Regular rate and rhythm, S1, S2 ABDOMEN: Soft, nontender, nondistended EXTREMITIES: 2+ pulses, warm, well-perfused, no edema. NEUROLOGICAL: Cranial nerves II through XII grossly intact. Normal speech, gait not observed. Laboratory Results - last 24 hr 07/26/18 07/26/18 06:10 06:10 WBC 7.9 RBC 3.21 L Hgb 10.3 L Hct 30.3 L MCV 94.3 MCH 32.0 MCHC 33.9 RDW 15.1 Plt Count 296 MPV 7.8 Sodium 140 Potassium 4.8 Chloride 108 H Carbon Dioxide 28 Anion Gap 5 L BUN 27 H Creatinine 1.9 H Creat Clearance w eGFR 34.64 Random Glucose 83 Calcium 8.8 Active Medications Generic Name Dose Route Start Last Admin Trade Name Freq PRN Reason Stop Dose Admin Heparin Sodium (Porcine) 5,000 unit 07/23/18 14:00 07/26/18 14:07 Heparin - SQ 5,000 unit TID RAIN Administration Piperacillin Sod/Tazobactam 50 mls @ 100 mls/hr 07/23/18 11:45 07/26/18 10:28 Sod 2.25 gm/ Dextrose IVPB 100 mls/hr Q8H-IV RAIN Administration Protocol Tamsulosin HCl 0.4 mg 07/27/18 08:30 Flomax - PO DAILY@0830 [facility] ASSESSMENT/PLAN Sepsis secondary to UTI --continue Zosyn BURAK --Cr 1.9 trending up, baseline 1.0 --urine studies ordered --repeat US kidneys, bladder, post-void residual --continue Flomax --strict I&Os DVT prophylaxis: subq heparin Visit type - Emergency Visit Emergency Visit: Yes ED Registration Date: 07/23/18 Care time: The patient presented to the Emergency Department on the above date and was hospitalized for further evaluation of their emergent condition. - New Patient This patient is new to me today: Yes Date on this admission: 07/27/18 - Critical Care Critical Care patient: No
[2018-07-26 18:00] LABS: OSMOLALITY,SERUM 297 mosm/kg (278-305)
[2018-07-27] MEDS ORDERED: PIPERACILLIN/TAZOBACTAM 2.25 GM VIAL IVPB ONE ×2 (01:09→09:00)
[2018-07-27] MEDS ORDERED: DEXTROSE 5%-WATER - 50 ML IVPB ONE ×2 (01:10→09:01)
[2018-07-27] MEDS: PIPERACILLIN/TAZOB 2.25 GM 2.25 GM in DEXTROSE 5%-WATER - 50 ML IVPB SCH ×3 (02:24→18:40)
[2018-07-27] MEDS: HEPARIN NA (PORCINE) 5,000 UNITS/ML 1ML VIAL SQ SCH ×3 (05:58→21:28)
[2018-07-27] MEDS: TAMSULOSIN HCL 0.4 MG CAP PO SCH (08:53)
--- NOTE | 2018-07-27 11:20 | PN ---
Physical Exam: SUBJECTIVE: Patient seen and examined at the bedside. feels better today, at bedside. OBJECTIVE: Vital Signs Period Temp Pulse Resp BP Sys/[place] Pulse Ox Last 24 Hr 98.2 F-98.3 F 58-67 20-20 114-116/50-60 97 GENERAL: The patient is awake, alert, and fully oriented, in no acute distress. HEAD: Normal with no signs of trauma. EYES: PERRL, extraocular movements intact, sclera anicteric, conjunctiva clear. No ptosis. ENT: Ears normal, nares patent, oropharynx clear without exudates, moist mucous membranes. NECK: Trachea midline, full range of motion, supple. LUNGS: Breath sounds equal, clear to auscultation bilaterally HEART: Regular rate and rhythm ABDOMEN: Soft, nontender, nondistended, normoactive bowel sounds EXTREMITIES: 2+ pulses, warm, well-perfused, no edema. NEUROLOGICAL: Normal speech, gait not observed. PSYCH: Normal mood, normal affect. SKIN: Warm, dry, normal turgor, no rashes or lesions noted Laboratory Results - last 24 hr 07/26/18 07/26/18 07/26/18 06:10 18:10 18:10 Sodium 140 Potassium 4.8 Chloride 108 H Carbon Dioxide 28 Anion Gap 5 L BUN 27 H Creatinine 1.9 H Creat Clearance w eGFR 34.64 Random Glucose 83 Serum Osmolality 297 Calcium 8.8 Urine Osmolality 348 Ur Random Creatinine 48 Ur Random Sodium 07/26/18 18:10 Sodium Potassium Chloride Carbon Dioxide Anion Gap BUN Creatinine Creat Clearance w eGFR Random Glucose Serum Osmolality Calcium Urine Osmolality Ur Random Creatinine Ur Random Sodium 72 Active Medications Generic Name Dose Route Start Last Admin Trade Name Freq PRN Reason Stop Dose Admin Heparin Sodium (Porcine) 5,000 unit 07/23/18 14:00 07/27/18 05:58 Heparin - SQ 5,000 unit TID RAIN Administration Piperacillin Sod/Tazobactam 50 mls @ 100 mls/hr 07/23/18 11:45 07/27/18 09:20 Sod 2.25 gm/ Dextrose IVPB 100 mls/hr Q8H-IV RAIN Administration Protocol Tamsulosin HCl 0.4 mg 07/27/18 08:30 07/27/18 08:53 Flomax - PO 0.4 mg DAILY@0830 RAIN Administration ASSESSMENT/PLAN: Pt is a 78 y/o gentleman with a significant past medical history of nephrolithiasis and colonic polyps who presented to [facility] with fever and chills for 1 day. Pt endorses visiting his urologist on Thursday to have his right stent removed ; pt had stent insertion s/p ESWL on July 05, 2018. Pt was placed on antibiotics after stent removal. Pt subsequently took the medication after procedure but developed fever, rigors, nausea, and vomiting. Levaquin was subsequently ordered and sent to pt' pharmacy. Pt states he was feeling very ill and came to ED before picking up medication. ID Sepsis secondary to UTI, resolved On admission presented with fever of 102.8 and leukocytosis. wbc now within normal limits and is afebrile. On zosyn per ID Urology consulted and following Renal CKD. Creat 1.8, baseline 1.0 bladder/renal ultrasound w/o acute pathology fen tolerating po monitor electrolytes low salt diet prophy scds/ambulation full code Visit type - Emergency Visit Emergency Visit: Yes ED Registration Date: 07/23/18 Care time: The patient presented to the Emergency Department on the above date and was hospitalized for further evaluation of their emergent condition. - New Patient This patient is new to me today: Yes Date on this admission: 07/27/18 - Critical Care Critical Care patient: No - Discharge Referral Referred to [facility] Med P.C.: No
[2018-07-27 12:32] LABS: BASO % 0.9 % (0-2.0); EOS % 7.5 % (0-4.5); HEMOGLOBIN 10.9 GM/dL (11.7-16.9); LYMPH % 22.7 % (8-40); MCH 31.6 pg (25.7-33.7); MCHC 33.2 g/dl (32.0-35.9); MEAN CELL VOLUME 95.1 fl (80-96); MEAN PLT VOLUME 7.7 fl (7.5-11.1); MONO % 8.6 % (3.8-10.2); NEUT % 60.3 % (42.8-82.8); PLATELET COUNT 332 K/MM3 (134-434); RBC 3.47 M/mm3 (4.00-5.60); RDW 15.3 % (11.9-15.9); WHITE BLOOD COUNT 9.1 K/mm3 (4.0-10.0)
[2018-07-27 13:04] LABS: ALBUMIN 2.6 g/dl (3.4-5.0); ALK PHOS 95 U/L (45-117); ANION GAP 6 MMOL/L (8-16); BILIRUBIN,TOTAL 0.3 mg/dL (0.2-1); BLOOD UREA NITROGEN 26 mg/dL (7-18); CALCIUM 8.7 mg/dL (8.5-10.1); CHLORIDE 105 mmol/L (98-107); CO2 26 mmol/L (21-32); CREATININE 1.8 mg/dL (0.55-1.3); GLUCOSE,RANDOM 85 mg/dL (74-106); POTASSIUM 4.5 mmol/L (3.5-5.1); SGOT/AST 30 U/L (15-37); SGPT/ALT 66 U/L (13-61); SODIUM 138 mmol/L (136-145); TOT PROT 6.8 g/dl (6.4-8.2)
--- NOTE | 2018-07-27 15:00 | PN ---
Progress Note, Physician History of Present Illness: AWAKE, ALERT SEATED IN BED NO C/O DYSURIA/ HEMATURIA NO F/C - Current Medication List Current Medications: Active Medications Heparin Sodium (Porcine) (Heparin -) 5,000 unit SQ TID [facility] Last Admin: 07/27/18 14:17 Dose: 5,000 unit Piperacillin Sod/Tazobactam (Sod 2.25 gm/ Dextrose) 50 mls @ 100 mls/hr IVPB Q8H-IV RAIN; Protocol Last Admin: 07/27/18 09:20 Dose: 100 mls/hr Tamsulosin HCl (Flomax -) 0.4 mg PO DAILY@0830 [facility] Last Admin: 07/27/18 08:53 Dose: 0.4 mg - Objective Vital Signs: Vital Signs Temperature 98.6 F 07/27/18 14:29 Pulse Rate 76 07/27/18 14:29 Respiratory Rate 20 07/27/18 14:29 Blood Pressure 114/76 07/27/18 14:29 O2 Sat by Pulse Oximetry (%) 97 07/26/18 21:00 Constitutional: Yes: No Distress Cardiovascular: Yes: Regular Rate and Rhythm, S1, S2 Respiratory: Yes: CTA Bilaterally Gastrointestinal: Yes: Normal Bowel Sounds, Soft Edema: No Labs: CBC, BMP 07/27/18 12:02 07/27/18 12:02 INR, PTT INR 1.55 (0.83-1.09) H 07/23/18 05:30 Assessment/Plan FEVER/ LEUKOCYTOSIS S/P URETERAL STENT REMOVAL HX NEPHROLITHIASIS SWITCH TO PO ABX NEXT 24H
[2018-07-28] MEDS ORDERED: DEXTROSE 5%-WATER - 50 ML IVPB ONE ×2 (01:01→09:27)
[2018-07-28] MEDS ORDERED: PIPERACILLIN/TAZOBACTAM 2.25 GM VIAL IVPB ONE ×2 (01:01→09:27)
[2018-07-28] MEDS: PIPERACILLIN/TAZOB 2.25 GM 2.25 GM in DEXTROSE 5%-WATER - 50 ML IVPB SCH ×2 (01:22→09:36)
[2018-07-28] MEDS: HEPARIN NA (PORCINE) 5,000 UNITS/ML 1ML VIAL SQ SCH (06:00)
[2018-07-28] MEDS ORDERED: ACETAMINOPHEN 325 MG TABLET (FP) PO ONE (06:17)
[2018-07-28 07:54] LABS: BASO % 0.6 % (0-2.0); EOS % 5.8 % (0-4.5); HEMATOCRIT 31.6 % (35.4-49); HEMOGLOBIN 10.3 GM/dL (11.7-16.9); LYMPH % 19.3 % (8-40); MCH 30.9 pg (25.7-33.7); MCHC 32.8 g/dl (32.0-35.9); MEAN CELL VOLUME 94.3 fl (80-96); MEAN PLT VOLUME 7.7 fl (7.5-11.1); MONO % 8.1 % (3.8-10.2); NEUT % 66.2 % (42.8-82.8); PLATELET COUNT 365 K/MM3 (134-434); RBC 3.35 M/mm3 (4.00-5.60); RDW 15.5 % (11.9-15.9); WHITE BLOOD COUNT 11.8 K/mm3 (4.0-10.0)
[2018-07-28 08:19] LABS: ALBUMIN 2.6 g/dl (3.4-5.0); ALK PHOS 91 U/L (45-117); ANION GAP 5 MMOL/L (8-16); BILIRUBIN,TOTAL 0.6 mg/dL (0.2-1); BLOOD UREA NITROGEN 26 mg/dL (7-18); CALCIUM 8.8 mg/dL (8.5-10.1); CHLORIDE 105 mmol/L (98-107); CO2 27 mmol/L (21-32); CREATININE 1.9 mg/dL (0.55-1.3); GLUCOSE,RANDOM 84 mg/dL (74-106); SGOT/AST 25 U/L (15-37); SGPT/ALT 57 U/L (13-61); SODIUM 137 mmol/L (136-145); TOT PROT 6.8 g/dl (6.4-8.2)
[2018-07-28] MEDS: TAMSULOSIN HCL 0.4 MG CAP PO SCH (09:35)
--- NOTE | 2018-07-28 10:15 | DS ---
Physical Examination Vital Signs: Vital Signs Temperature 98.3 F 07/28/18 06:18 Pulse Rate 58 L 07/28/18 06:18 Respiratory Rate 20 07/28/18 06:18 Blood Pressure 116/67 07/28/18 06:18 O2 Sat by Pulse Oximetry (%) 95 07/27/18 21:00 Constitutional: Yes: Well Nourished, No Distress, Calm Eyes: Yes: Conjunctiva Clear HENT: Yes: Atraumatic, Normocephalic Neck: Yes: Supple, Trachea Midline Cardiovascular: Yes: Regular Rate and Rhythm Respiratory: Yes: Regular, CTA Bilaterally Gastrointestinal: Yes: Normal Bowel Sounds, Soft ...Rectal Exam: Yes: Deferred Renal/: Yes: WNL Musculoskeletal: Yes: WNL Extremities: Yes: WNL Edema: Yes (right dorsal foot) Peripheral Pulses: Left Radial: 2+, Right Radial: 2+ Integumentary: Yes: WNL Neurological: Yes: Alert, Oriented ...Motor Strength: WNL Psychiatric: Yes: Oriented Labs: CBC, BMP 07/28/18 06:30 07/28/18 06:30 Discharge Summary Reason For Visit: URINARY TRACT INFECFECTION,SEPSIS Current Active Problems Sepsis (Acute) Systemic inflammatory response syndrome (SIRS) (Acute) UTI (urinary tract infection) (Acute) Other Procedures: Renal sono 07/23/2018. IMPRESSION: Morphologically normal kidneys with no evidence of hydronephrosis or acute pathology. Reported By: Robin Hoyt MD. 07/23/18 0820. . CXR 07/24. Impression: Improvement since prior study. Smaller heart. Less prominent aorta. No acute chest pathology. Reported By: Artem Campbell MD. 1210. . pelvic/bladder sono 07/24/2018. Impression: No hydronephrosis is seen. The kidneys demonstrate no definite sonographic abnormality. No interval change is seen in comparison to a prior ultrasound study of 07/23/2018. A post void residual urinary volume of 30 mL is noted. Prevoid volume 320 mL. Reported By: Lebron Prince MD. . Renal sono 07/26/2018. Impression: No hydronephrosis is seen. The kidneys demonstrate no definite sonographic abnormality. No interval change is seen in comparison to a prior ultrasound study of 07/23/2018. A post void residual urinary volume of 30 mL is noted. Prevoid volume 320 mL. Reported By: Lebron Prince MD. 07/26/18 1705. 07/26/18 1705. Hospital Course: 78 y/o gentleman with a significant past medical history of nephrolithiasis and colonic polyps who presented to [facility] due to fever and chills for 1 day. Pt endorses visiting his Urologist on Thursday to have his right stent removed; pt had stent insertion s/p ESWL on July 05, 2018. Pt was placed on antibiotics after stent removal. Pt cannot recall if placed on Bactrim or Macrobid. Pt subsequently took the medication after procedure but developed fever, rigors, nausea, and vomiting. Levaquin was subsequently ordered and sent to pt' pharmacy. Pt states he was feeling very ill and came to ED before picking up medication. Denies chest pain, shortness of breath, or lightheadedness. On admission presented with fever of 102.8 and leukocytosis. Pt was treated with Zosyn for Sepsis secondary to E. faecalis UTI. WBC decreased and at time of discharge was 11.8 and is afebrile. Urology consulted and followed patient throughout hospital course. bladder/renal ultrasound w/o acute pathology SErum labs revealed mild persistent elevation in serum Creat 1.8- 1.9; baseline 1.0 Zosyn converted to Augmentin for five more days and patient d/roshan home with outpt primary care and urology follow up. Condition: Improved - Instructions Diet, Activity, Other Instructions: Patient instructions: Please CAll PCP: Dr. Morales to schedule follow up appt Please call urologist: Dr. Sahu to confirm August 04 appointment Regular diet Symptoms of a lower urinary tract infection or bladder infection may include: Frequent need to urinate Burning sensation while urinating Pressure in the lower abdomen Pain in the lower back Blood in urine Symptoms of an upper urinary tract infection or a kidney infection may include: Fever Chills Nausea and/or vomiting Pain higher in the back (around the upper sides and waist) In women, the symptoms of a urinary tract infection are similar to those caused by some vaginal infections. Causes of UTIs In women, urinary tract infections usually are caused by bacteria that live on the skin near the rectum or vagina. These bacteria can travel through the urinary tract and cause infections in the bladder or other parts of the urinary tract. UTIs in men are rare and usually indicate an abnormal urinary tract or an enlarged prostate. The most common causes of urinary tract infections are: Sexual intercourse The back and forth motion of the penis during intercourse can push bacteria into the urethra. Bladder infections are more common in women who have had multiple sexual partners or have frequent intercourse. Testing for UTIs Several methods may be used to tell whether you have a UTI. A urine sample may be used to evaluate the number of bacteria and white blood cells present. A high number of white blood cells in your urine may indicate an infection. A pelvic exam may be needed to rule out a vaginal or pelvic problem. X-rays or ultrasounds may be used if infection returns often or does not respond to treatment. Treatment Urinary tract infections are treated with antibiotics. It is very important to use all medication that your doctor prescribes, even if symptoms go away before finishing the medication. Your doctor may recommend testing your urine after the treatment is finished to be sure the infection has completely cleared up. If you have had several bladder infections, or even one kidney infection, your doctor may refer you to a urologist [[id number]]. A urologist is a doctor who specializes in treating problems of the urinary tract. Prevention You can help prevent urinary tract infections by practicing the following health habits: Understand the causes. Practice good personal hygiene. Always wipe from front to back. Drink plenty of fluids (at least three to four glasses of water each day) to help flush bacteria out of the urinary tract. Empty your bladder completely as soon as you feel the urge, or at least every three hours. Get plenty of vitamin C. It makes urine acidic and helps keep bacteria down. Vitamin C is found in orange juice, citrus fruits, and broccoli. Wear cotton underwear. Bacteria grows better in moist places. Cotton does not trap moisture. If you contract an infection, see your doctor and follow the prescribed treatment. Several additional measures are helpful for women: During intercourse, try different positions that cause less friction between your urethra and your partners penis. Change sanitary pads and tampons frequently during menstruation. After intercourse, urinate as soon as possible. This will help flush out any bacteria that may have gone into the urinary tract. If you have any symptoms of a urinary tract infection, see a doctor as soon as possible. With proper treatment, the infection can be cleared up before it causes serious problems. Referrals: Eric Morales MD [Primary Care Provider] - Rishabh Alejandre MD [Staff Physician] - Disposition: HOME - Home Medications Comprehensive Discharge Medication List: Ambulatory Orders Amox-Tr/K Cl [Augmentin 875-125mg Tablet -] 1 tab PO BID@0800,1730 5 Days #10 tablet 07/28/18 Tamsulosin HCl [Flomax -] 0.4 mg PO DAILY@0830 cap.er.[email or web address] 07/28/18 This patient is new to me today: Yes Date on this admission: 07/28/18 Emergency Visit: Yes ED Registration Date: 07/23/18 Care time: The patient presented to the Emergency Department on the above date and was hospitalized for further evaluation of their emergent condition. Critical Care patient: No - Discharge Referral Referred to [facility] Med P.C.: No
[2018-07-28 11:32] VITALS: BP 107/53; PULSE 66; TEMP 97.8
[2018-07-28] MEDS ORDERED: AMOX TR/POT CLAV 875MG/125MG TABLETS (FP) PO SCH (17:30)
== END 2018-07-28 11:33 | disposition home or self-care (01) | DRG 872 ==
LOC: JER 20:56 → JERBED 07-23 01:41 → OBSVTOIN 07-23 03:27 → J8W 07-23 06:48
PROVIDERS: ADMIT Internal Medicine; ATTEND Nurse Practitioner Family
DX: A41.81 Sepsis due to Enterococcus (principal); N39.0 Urinary tract infection, site not specified; E46 Unspecified protein-calorie malnutrition; N17.9 Acute kidney failure, unspecified; E88.09 Other disorders of plasma-protein metabolism, not elsewhere classified; K63.5 Polyp of colon; E66.9 Obesity, unspecified; Z68.32 Body mass index [BMI] 32.0-32.9, adult; D72.829 Elevated white blood cell count, unspecified; N40.0 Benign prostatic hyperplasia without lower urinary tract symptoms; N20.0 Calculus of kidney; N18.9 Chronic kidney disease, unspecified; Z85.038 Personal history of other malignant neoplasm of large intestine
CPT/HCPCS: 36415; 71045-TC-FY; 76775-TC; 76856-TC; 80048; 80053; 81003; 82565; 83605; 83735; 83930; 83935; 84100; 84300; 85025; 85027; 85610; 85730; 87040; 87086; 93005; 93010; 99285-25; G0378; G0480; J0131; J1644; J7030